=== PATIENT | male | born 1965 | race Caucasian/White ===

== ENCOUNTER 2016-09-29 14:14 | Emergency (ER) | payer MEDICARE, MEDICAID ==
[~2016-09-29] VITALS: Ht 180.3 cm; Wt 73.2 kg
[~2016-09-29 14:14] MED LIST: ALBU8.5H INH; ASCO500T43 PO; IBUP-1724 PO
[2016-09-29 14:18] VITALS: Ht 180.3 cm; Wt 73.2 kg
--- OUTSIDE RECORDS SUMMARY | 2016-09-29 14:19 | XMS REPORT | Continuity of Care Document ---
Author Author Barrett [facility] Organization [facility] Address Unknown Phone Unavailable Care Team Providers Care Fuel Storage Technician Name Role Phone Emma DENG MD Primary Care Physician [phone] Insurance Providers Payer Name Policy Number Subscriber Name Relationship Medicare [id number] Jamie Nagy 20 Self [place] [place] Plan [id number] Jamie Nagy 20 Self Problems Medical Problems Problem Onset Date Status Insect bite - wound Unknown Active Nausea Unknown Active Abdominal pain Unknown Active Diarrhea Unknown Active Vomiting Unknown Active Diarrhea Unknown Active Nausea Unknown Active Abdominal pain Unknown Active Nausea Unknown Active Adverse reaction to drug Unknown Active Lumbar radiculopathy Unknown Active Back muscle spasm Unknown Active Lumbar strain Unknown Active Spasm of cervical paraspinous muscle Unknown Active Spasm of cervical paraspinous muscle Unknown Active Multiple contusions Unknown Active Fall Unknown Active Medications Medication Dose Route Sig Days/Qty Instructions Order Date Discontinued Date Status Ibuprofen 800 Mg PO THREE TIMES A DAY 11/07/08 02/18/11 Discontinued Escitalopram Oxalate 1 Tab PO DAILY 11/07/08 12/27/10 Discontinued [Tylenol] 11/07/08 03/04/09 Discontinued Aspirin 1 Tab PO THREE TIMES A DAY 03/04/09 12/27/10 Discontinued Docusate Sodium 100 Mg PO DAILY 01/19/11 02/10/11 Discontinued Psyllium Seed PO DAILY 01/19/11 02/10/11 Discontinued Hydrocodone Bit/Acetaminophen 1 Tab PO NEEDED 01/19/11 02/10/11 Discontinued Al Hydroxide/Mg Hydroxide 02/10/11 03/27/11 Discontinued [Otc Allergy Med] 02/10/11 03/27/11 Discontinued Meloxicam 15 Mg PO DAILY 02/18/11 03/27/11 Discontinued Ibuprofen 800 Mg PO NEEDED 06/18/11 12/17/11 Discontinued Naproxen Sodium 220 Mg PO TWICE A DAY 07/09/11 12/17/11 Discontinued Paroxetine Hcl 10 Mg PO DAILY 07/29/11 12/17/11 Discontinued Ibuprofen 800 Mg PO NEEDED 03/23/12 12/19/12 Discontinued Hydrocodone Bit/Acetaminophen 1 Tab PO TID PRN 12/27/12 04/27/13 Discontinued Ibuprofen 800 Mg PO Q8H PRN 12/27/12 Active Paroxetine HCl 1 Tab PO DAILY 01/11/14 Active Clonazepam 0.5 Tab PO NEEDED 01/11/14 Active Social History Social History Problem Response Recorded Date/Time Smoking Status Former smoker 10/08/2013 9:08pm When did patient START smoking? PT UNABLE TO STATE WHAT YEAR OR HOW OLD HE WAS 01/28/2014 2:18pm Chewing Tobacco Status No 10/08/2013 9:08pm Hx Substance Use No 01/28/2014 2:18pm Hx Alcohol Use Yes 01/28/2014 2:18pm Has the pt used tobacco in the last 12 months Yes 01/11/2014 4:23pm Query Response Start Date Stop Date Smoking Status Current every day smoker Hospital Discharge Instructions No hospital discharge instructions. Plan of Care No plan of care. Functional Status Query Response Date Recorded Physical Hygiene Self January 28, 2014 2:18pm Disabilities None January 28, 2014 2:18pm Devices Used None January 28, 2014 2:18pm Dressing Self January 28, 2014 2:18pm Ambulation Self January 28, 2014 2:18pm Diet Self January 28, 2014 2:18pm Mental Status Alert Oriented January 28, 2014 2:18pm Disabilities None January 28, 2014 2:18pm Devices Used None January 28, 2014 2:18pm Physical Hygiene Self January 28, 2014 2:18pm Dressing Self January 28, 2014 2:18pm Ambulation Self January 28, 2014 2:18pm Diet Self January 28, 2014 2:18pm Allergies, Adverse Reactions, Alerts Allergen Type Severity Reaction Status Last Updated propoxyphene napsylate Allergy Unknown RASH,NECK SWELLING Active 01/13/14 Acetaminophen Adverse Reaction Unknown CANNOT TAKE DUE TO LIVER Active Tramadol Allergy Severe rash, upset stomach Active 01/28/14 Immunizations Name Given Type Hx Influenza Vaccination No Historical Hx Pneumococcal Vaccination No Historical Hx Tetanus, Diptheria, Pertussis SKIN INTACT Historical Hx Influenza Vaccination No Historical Hx Tetanus Diptheria Y THREE YRS AGO Historical Hx Tetanus, Diptheria, Pertussis SKIN INTACT Historical Hx Tetanus Toxoid Vaccination No Historical Vital Signs Acute Vital Signs Vital Response Date/Time Temperature (Fahrenheit) 96.4 deg F (96.8 - 99.1) Temperature (Calculated Celsius) 35.22647 degrees C (36.0 - 37.3) Pulse Rate (adult) 50 bpm (60 - 100) Respiratory Rate 20 breaths/min (10 - 20) O2 Sat by Pulse Oximetry 98 % (90 - 100) Blood Pressure 132/75 mm Hg Height 5 ft 7 in Weight 167 lb Body Mass Index 26.0 kg/m^2 Results Test Source Date Result Interp. Ref. Range Comments ANCA Pattern June 22, 2008 5:36pm Sent out - Acetaminophen Level December 19, 2012 5:45pm < 10 UG/ML L 10-30 TOXIC <4 HR POST INGESTION: >150 MG/L;TOXIC <12 HR POST INGESTION: >50 MG/L Activated Partial Thromboplast Time December 27, 2012 11:42am 37.5 SEC H 24- 36 Alanine Aminotransferase (ALT/SGPT) January 28, 2014 1:35pm 58 U/L N 21- 72 Albumin January 28, 2014 1:35pm 4.5 G/DL N 3.5-5.0 Albumin/Globulin Ratio January 28, 2014 1:35pm 1.6 RATIO N 1.1-2.2 Alcohol, Quantitative June 18, 2013 2:20am 121 MG/DL - Alkaline Phosphatase January 28, 2014 1:35pm 76 U/L N 38-126 Alpha Fetoprotein July 28, 2008 8:26am Sent out - Ammonia July 09, 2011 12:40am < 9 UMOL/L L 9-33 Amylase Level June 18, 2013 2:20am 120 U/L H 30-110 Anion Gap January 28, 2014 1:35pm 12 MEQ/L N 5-15 Aspartate Amino Transf (AST/SGOT) January 28, 2014 1:35pm 43 U/L N 17-59 B-Type Natriuretic Peptide January 19, 2011 3:30am 27 PG/ML N 15-100 BUN/Creatinine Ratio January 28, 2014 1:35pm 23 RATIO N 6-26 Band Neutrophils # March 04, 2009 2:37pm 0.0 T/MM3 - Band Neutrophils % March 04, 2009 2:37pm 0.0 % N 0-6 Basophils # (Auto) January 28, 2014 1:35pm 0.0 T/MM3 N 0-0.2 Basophils (%) (Auto) January 28, 2014 1:35pm 0.3 % N 0-2 Blood Urea Nitrogen January 28, 2014 1:35pm 18.0 MG/DL N 9-20 Calcium Level January 28, 2014 1:35pm 9.6 MG/DL N 8.4-10.2 Calculated Osmolality January 28, 2014 1:35pm 293 MOSM/KG H 261-280 Carbon Dioxide Level January 28, 2014 1:35pm 26 MEQ/L N 22-30 Chloride Level January 28, 2014 1:35pm 113 MEQ/L H 98-107 Conjugated Bilirubin February 19, 2012 1:05am 0.00 MG/DL N 0.00-0.30 Creatinine January 28, 2014 1:35pm 0.8 MG/DL N 0.8-1.5 D-Dimer February 18, 2011 4:35am < 150 NG/ML 0-230 <224 NG/ML= PRESUMPTIVE NEGATIVE FOR PE OR DVT>224 NG/ML=ADDITIONAL EVALUATION FOR PE OR DVT RECOMMENDED Eosinophils # (Auto) January 28, 2014 1:35pm 0.2 T/MM3 N 0-0.5 Eosinophils # (Manual) March 01, 2008 2:45pm 0.2 T/MM3 N 0-0.5 Eosinophils % (Manual) March 01, 2008 2:45pm 2.0 % N 0-4 Eosinophils (%) (Auto) January 28, 2014 1:35pm 3.4 % N 0-4 Free Thyroxine July 09, 2011 12:40am 1.23 NG/DL N 0.78-2.19 Gamma Glutamyl Transpeptidase December 12, 2008 3:35pm 107 U/L H 8-78 Globulin January 28, 2014 1:35pm 2.8 G/DL N 2.4-3.6 Glucose Level January 28, 2014 1:35pm 118 MG/DL H 75-110 Hematocrit January 28, 2014 1:35pm 44.6 % N 41-53 Hemoglobin January 28, 2014 1:35pm 15.1 GM/DL N 13.5-17.5 Hemoglobin A1c May 20, 2011 3:42pm 5.3 % L 6-7 <6.0 NON-DIABETIC RANGE6.0-7.0 ADA THERAPEUTIC RANGE >7.0 ACTION SUGGESTED Hepatitis A Antibody Total December 27, 2012 11:42am Negative - Hepatitis A Antibody Total performed at [facility], [address] [place] [address] [employer] Lieutenant Patrol Nikki Burton MD Hepatitis A IgM Antibody December 12, 2008 3:35pm Negative - Hepatitis B Core IgM Antibody December 12, 2008 3:35pm Negative - Hepatitis B Surface Antibody December 27, 2012 11:42am Negative - Patient is presumed to be not immune to infection with HBV.-- REFERENCE VALUE -- Unvaccinated: Negative Vaccinated: Positive Hepatitis B Surface Antibody, Quant December 27, 2012 11:42am <5.00 mIU/mL - -- REFERENCE VALUE --Unvaccinated: <5.0 Vaccinated: >=12.0 Test Performed by: [place] [address] Executive Candidate Developer: Kaiden Zhang III, M.D. Hepatitis B Surface Ab, Quant performed at [facility], [address] [place] [address] [employer] Lieutenant Patrol Leatha Burton MD Hepatitis B Surface Antigen December 12, 2008 3:35pm Negative - Hepatitis C Antibody December 12, 2008 3:35pm Positive - Hepatitis C Genotype December 27, 2012 11:42am 1a - Reference Range: Undetected.Testing was done using the Jenkins HCV Genotype II Assay. For research use only. Test performed by: [place], [place] Hepatitis C Viral RNA December 27, 2012 11:42am [id number] IU/mL - HEP C GENOTYPE [id number] Influenza Type A Antigen June 18, 2013 2:25am Negative - Negative for Flu A protein antigen. Assay sensitivity isbetween 65-83%. A negative result does not exclude influenza virus infection. "Influenza FA" may be ordered if clinical presentation warrants confirmatory testing. Influenza Type B Antigen June 18, 2013 2:25am Negative - Negative for Flu B protein antigen. Assay sensitivity isbetween 65-83%. A negative result does not exclude influenza virus infection. "Influenza FA" may be ordered if clinical presentation warrants confirmatory testing. Lipase June 18, 2013 2:20am 262 U/L N 23-300 Lymphocytes # (Auto) January 28, 2014 1:35pm 2.3 T/MM3 N 1-4.8 Lymphocytes # (Manual) March 04, 2009 2:37pm 2.8 T/MM3 N 1-4.8 Lymphocytes % (Manual) March 04, 2009 2:37pm 20.0 % L 23-45 Lymphocytes (%) (Auto) January 28, 2014 1:35pm 32.5 % N 23-45 Magnesium Level December 17, 2012 1:54am 2.3 MG/DL N 1.6-2.3 Mean Corpuscular Hemoglobin January 28, 2014 1:35pm 33.3 UUG N 26-34 Mean Corpuscular Hemoglobin Concent January 28, 2014 1:35pm 33.9 GM/DL N 31-37 Mean Corpuscular Volume January 28, 2014 1:35pm 98.2 UM3 N 80-100 Mean Platelet Volume January 28, 2014 1:35pm 10.0 UM3 N 9.4-12.4 Monocytes # (Auto) January 28, 2014 1:35pm 0.7 T/MM3 N 0-0.8 Monocytes # (Manual) March 04, 2009 2:37pm 0.4 T/MM3 N 0-0.8 Monocytes % (Manual) March 04, 2009 2:37pm 3.0 % N 0-9.0 Monocytes (%) (Auto) January 28, 2014 1:35pm 9.4 % H 0-9.0 Neutrophils # (Auto) January 28, 2014 1:35pm 3.8 T/MM3 N 1.8-7.7 Neutrophils # (Manual) March 04, 2009 2:37pm 10.8 T/MM3 H 1.8-7.7 Neutrophils % (Manual) March 04, 2009 2:37pm 77.0 % H 33-66 Neutrophils (%) (Auto) January 28, 2014 1:35pm 54.3 % N 33-66 Platelet Count January 28, 2014 1:35pm 238 T/MM3 N 130-400 Potassium Level January 28, 2014 1:35pm 3.9 MEQ/L N 3.6-5 Prothromb Time International Ratio December 27, 2012 11:42am 1.05 N 0.86- 1.10 THERAPUTIC RANGE=2.00-3.00 FOR ANTI-THROMBOSIS THERAPUTIC RANGE=2.50- 3.50 FOR IMPLANTED VALVE RDW Standard Deviation January 28, 2014 1:35pm 50.3 FL H 36.9-50.2 Red Blood Count January 28, 2014 1:35pm 4.54 M/MM3 N 4.50-5.90 Salicylates Level December 19, 2012 5:45pm < 1.0 MG/DL L 2-20 Sodium Level January 28, 2014 1:35pm 151 MEQ/L H 134-144 Tests Not Done September 26, 2008 6:14pm Not done - Has specimen been collected/obtained? Y Thyroid Stimulating Hormone (TSH) December 19, 2012 5:45pm 0.22 MIU/L L 0.47 -4.68 Total Bilirubin January 28, 2014 1:35pm 0.50 MG/DL N 0.20-1.30 Total Protein January 28, 2014 1:35pm 7.3 G/DL N 6.3-8.2 Troponin I February 19, 2012 1:05am < 0.012 ng/ml 0-0.12 Unconjugated Bilirubin February 19, 2012 1:05am 0.10 MG/DL N 0.00-1.10 Urine Bacteria March 04, 2009 2:50pm Trace - Has specimen been collected/obtained? Y Urine Bilirubin June 18, 2013 2:55am Negative - Has specimen been collected/obtained? Y Urine Blood June 18, 2013 2:55am Negative - Has specimen been collected/obtained? Y Urine Collection Type June 18, 2013 2:55am Cleancatch-midstream - Has specimen been collected/obtained? Y Urine Color June 18, 2013 2:55am Yellow - Has specimen been collected/obtained? Y Urine Drug Screen Confirmation June 18, 2013 3:31am Sent out - Urine Glucose (UA) June 18, 2013 2:55am Negative - Has specimen been collected/obtained? Y Urine Ketones June 18, 2013 2:55am Negative - Has specimen been collected/obtained? Y Urine Leukocyte Esterase June 18, 2013 2:55am Negative - Has specimen been collected/obtained? Y Urine Microalbumin February 12, 2009 11:15am < 6.0 MG/L 0-17 Urine Mucus March 04, 2009 2:50pm Present - Has specimen been collected/obtained? Y Urine Nitrite June 18, 2013 2:55am Negative - Has specimen been collected/obtained? Y Urine Protein June 18, 2013 2:55am Negative - Has specimen been collected/obtained? Y Urine RBC March 04, 2009 2:50pm None seen /HPF - Has specimen been collected/obtained? Y Urine Specific Finger June 18, 2013 2:55am 1.010 L - Has specimen been collected/obtained? Y Urine Turbidity June 18, 2013 2:55am Clear - Has specimen been collected/obtained? Y Urine Urobilinogen June 18, 2013 2:55am 0.2 EU/DL - Has specimen been collected/obtained? Y Urine WBC March 04, 2009 2:50pm 0-1 /HPF - Has specimen been collected/obtained? Y Urine pH June 18, 2013 2:55am 5.5 - Has specimen been collected/ obtained? Y White Blood Count January 28, 2014 1:35pm 7.0 T/MM3 N 4.5-11.0 Chemistry Specimen Hemolysis January 28, 2014 1:35pm < 15 0-25 0-25: No Hemolysis.26-70: Slight Hemolysis - can falsely elevate K and Urine Protein. 71-285: Moderate Hemolysis - can falsely elevate K, Troponin I, CA 19-9, PTH, CSF GLucose, and Urine Protein, and can falsely decrease Phenytoin. 286-999: Gross Hemolysis - can falsely elevate K, Troponin I, CA 19-9, PTH, CSF Glucose, and Urine Protine, and can falsely decrease Phenytoin. Recommend specimen recollection. Hepatitis C Virus Subtype December 12, 2008 3:35pm Sent out - Urinalysis Comment June 18, 2013 2:55am Microscopic not ind. - Has specimen been collected/obtained? Y Glucometer April 27, 2013 3:20pm 126 mg/dL H 75-110 Lab Scanned Report January 28, 2014 5:18pm REFERENCE LAB [id number] - Hepatitis C RNA (PCR) Method March 29, 2008 5:37pm Sent out - Hepatitis C RNA Ultraquantitative February 23, 2009 4:20pm Sent out - Anti-Nuclear Antibody (LAB) December 12, 2008 3:35pm Sent out - Turbidity January 28, 2014 1:35pm < 20 0-20 Glomerular Filtration Rate Calc January 28, 2014 1:35pm 104 - Immature Granulocyte # (Auto) January 28, 2014 1:35pm 0.01 T/MM3 N 0.00- 0.03 Immature Granulocyte % (Auto) January 28, 2014 1:35pm 0.1 % N 0.0-0.5 Hepatitis C RNA (PCR) log10 December 27, 2012 11:42am 6.6 - This test is for monitoring of HCV positive patients only andshould not be used as a screening test for HCV infection. Hepatitis C RNA performed at [facility], [facility] [address] [employer] Lieutenant Patrol Nikki Burton MD Icterus Index January 28, 2014 1:35pm < 2 0-7 [id number]-[id number]-Type Natriuretic Peptide February 19, 2012 1:05am 67 PG/ML N 0 -175 Rule in cut points: <50 years old=450; 50-75 years old=900; >75 years old=1800; When utilizing ProBNP rule-in cut points, adjustment for impaired renal function is typically not required. Urine Microscopic Not Indicated July 29, 2011 5:00am Not indicated - Has specimen been collected/obtained? Y Blood Culture Blood March 27, 2011 9:54am NO GROWTH AFTER 5 DAYS Gram Stain Leg-Right Lower January 27, 2008 9:54pm Helicobacter pylori Rapid Urease Gastric Biopsy November 07, 2008 11:15am Name: JAMIE NAGY Unit #: [id number] : [id number] Sex: M Loc / Svc: ED DOS: 01/28/14 Signed Report #: [id number] DIAGNOSTIC IMAGING REPORT TYPE OF EXAM: SHOULDER RIGHT 2 VIEW Dictated By: ANNETTE GALE MD INDICATION: ITS.REASON: fall, pain SHOULDER RIGHT 2 VIEW: IMPRESSION: No fracture or dislocation is identified. No focal osseous lesions are demonstrated. No bony or soft tissue abnormalities are seen. No erosions or inflammatory lesions are seen. . Procedures Procedure Status Date Provider(s) Cervical epidural steroid injection completed 01/26/14 ANN BURNETT MD Encounters Encounter Location Date/Time Departed Emergency Room [facility] 01/28/14 1:49pm Departed Emergency Room [facility] 01/13/14 10:20pm Recent Diagnosis
--- OUTSIDE RECORDS SUMMARY | 2016-09-29 14:20 | XMS REPORT | Continuity of Care Document ---
Author Author [facility] Organization [facility] Address Unknown Phone Unavailable Support Name Relationship Address Phone ANN BURNETT MD Caregiver [address] [place] [address] SKIP GARCIA MD Caregiver [address] [place] [address] [employer] Next Of Kin Unknown [phone] Insurance Providers Payer Name Policy Number Subscriber Name Relationship Medicare [id number] Jamie Nagy 20 Self [employer] [id number] Jamie Nagy 20 Self Problems Medical Problems Problem Onset Date Status Insect bite - wound Unknown Active Nausea Unknown Active Abdominal pain Unknown Active Diarrhea Unknown Active Vomiting Unknown Active Diarrhea Unknown Active Nausea Unknown Active Abdominal pain Unknown Active Nausea Unknown Active Adverse reaction to drug Unknown Active Lumbar radiculopathy Unknown Active Back muscle spasm Unknown Active Lumbar strain Unknown Active Medications Medication Dose Route Sig [...] 800 Mg PO Q8H PRN 12/27/12 Active Ondansetron Hcl 4 Mg PO NEEDED 06/18/13 Active Paroxetine HCl 1 Tab PO DAILY 01/11/14 Active Clonazepam 0.5 Tab PO NEEDED 01/11/14 Active Gabapentin 1 Cap PO TWICE A DAY 01/11/14 Active Social History Social History Problem Response Recorded Date/Time Smoking Status Former smoker 10/08/2013 9:08pm When did patient START smoking? AGE 26 01/11/2014 4:23pm When did patient STOP smoking? 2 MONTHS AGO 01/11/2014 4:23pm Chewing Tobacco Status No 10/08/2013 9:08pm Hx Substance Use No 01/11/2014 4:23pm Hx Alcohol Use Yes 01/11/2014 4:23pm Has the pt used tobacco in the last 12 months Yes 01/11/2014 4:23pm Query Response Start Date Stop Date Smoking Status Current every day smoker Hospital Discharge Instructions No hospital discharge instructions. Plan of Care No plan of care. Functional Status No functional status results. Allergies, Adverse Reactions, Alerts Allergen Type Severity Reaction Status Last Updated propoxyphene napsylate Allergy Unknown RASH,NECK SWELLING Active 01/11/14 Acetaminophen Adverse Reaction Unknown CANNOT TAKE DUE TO LIVER Active Immunizations Name Given Type Hx Influenza Vaccination No Historical Hx Pneumococcal Vaccination No Historical Hx Tetanus, Diptheria, Pertussis N/A SKIN INTACT Historical Hx Influenza Vaccination No Historical Hx Tetanus Diptheria Y THREE YRS AGO Historical Hx Tetanus, Diptheria, Pertussis N/A SKIN INTACT Historical Hx Tetanus Toxoid Vaccination No Historical Vital Signs Acute Vital Signs Vital Response Date/Time Temperature (Fahrenheit) 97.7 deg F (96.8 - 99.1) Temperature (Calculated Celsius) 36.95537 degrees C (36.0 - 37.3) Temperature Source Temporal Pulse Rate (adult) 63 bpm (60 - 100) Respiratory Rate 20 breaths/min (10 - 20) O2 Sat by Pulse Oximetry 96 % (90 - 100) Oxygen Delivery Method Room Air Blood Pressure 148/62 mm Hg Blood Pressure Source Automatic Cuff Height 5 ft 11 in Weight 160 lb Body Mass Index 22.0 kg/m^2 Results Test Source Date Result Interp. Ref. Range Comments ANCA Pattern June 22, 2008 5:36pm Sent out - Acetaminophen Level December 19, 2012 5:45pm < 10 UG/ML L 10-30 TOXIC <4 HR POST INGESTION: >150 MG/L;TOXIC <12 HR POST INGESTION: >50 MG/L Activated Partial Thromboplast Time December 27, 2012 11:42am 37.5 SEC H 24- 36 Alanine Aminotransferase (ALT/SGPT) June 18, 2013 2:20am 63 U/L N 21- 72 Albumin June 18, 2013 2:20am 4.9 G/DL N 3.5-5.0 Albumin/Globulin Ratio June 18, 2013 2:20am 1.3 RATIO N 1.1-2.2 Alcohol, Quantitative June 18, 2013 2:20am 121 MG/DL - Alkaline Phosphatase June 18, 2013 2:20am 73 U/L N 38-126 Alpha Fetoprotein July 28, 2008 8:26am Sent out - Ammonia July 09, 2011 12:40am < 9 UMOL/L L 9-33 Amylase Level June 18, 2013 2:20am 120 U/L H 30-110 Anion Gap June 18, 2013 2:20am 18 MEQ/L H 5-15 Aspartate Amino Transf (AST/SGOT) June 18, 2013 2:20am 55 U/L N 17- 59 B-Type Natriuretic Peptide January 19, 2011 3:30am 27 PG/ML N 15-100 BUN/Creatinine Ratio June 18, 2013 2:20am 10 RATIO N 6-26 Band Neutrophils # March 04, 2009 2:37pm 0.0 T/MM3 - Band Neutrophils % March 04, 2009 2:37pm 0.0 % N 0-6 Basophils # (Auto) June 18, 2013 2:20am 0.0 T/MM3 N 0-0.2 Basophils (%) (Auto) June 18, 2013 2:20am 0.4 % N 0-2 Blood Urea Nitrogen June 18, 2013 2:20am 9.0 MG/DL N 9-20 Calcium Level June 18, 2013 2:20am 10.1 MG/DL N 8.4-10.2 Calculated Osmolality June 18, 2013 2:20am 291 MOSM/KG H 261-280 Carbon Dioxide Level June 18, 2013 2:20am 25 MEQ/L N 22-30 Chloride Level June 18, 2013 2:20am 109 MEQ/L H 98-107 Conjugated Bilirubin February 19, 2012 1:05am 0.00 MG/DL N 0.00-0.30 Creatinine June 18, 2013 2:20am 0.9 MG/DL N 0.8-1.5 D-Dimer February 18, 2011 4:35am < 150 NG/ML 0-230 <224 NG/ML= PRESUMPTIVE NEGATIVE FOR PE OR DVT>224 NG/ML=ADDITIONAL EVALUATION FOR PE OR DVT RECOMMENDED Eosinophils # (Auto) June 18, 2013 2:20am 0.2 T/MM3 N 0-0.5 Eosinophils # (Manual) March 01, 2008 2:45pm 0.2 T/MM3 N 0-0.5 Eosinophils % (Manual) March 01, 2008 2:45pm 2.0 % N 0-4 Eosinophils (%) (Auto) June 18, 2013 2:20am 3.4 % N 0-4 Free Thyroxine July 09, 2011 12:40am 1.23 NG/DL N 0.78-2.19 Gamma Glutamyl Transpeptidase December 12, 2008 3:35pm 107 U/L H 8-78 Globulin June 18, 2013 2:20am 3.7 G/DL H 2.4-3.6 Glucose Level June 18, 2013 2:20am 98 MG/DL N 75-110 Hematocrit June 18, 2013 2:20am 43.1 % N 41-53 Hemoglobin June 18, 2013 2:20am 14.9 GM/DL N 13.5-17.5 Hemoglobin A1c May 20, 2011 3:42pm 5.3 % L 6-7 <6.0 NON-DIABETIC RANGE6.0-7.0 ADA THERAPEUTIC RANGE >7.0 ACTION SUGGESTED Hepatitis A Antibody Total December 27, 2012 11:42am Negative - Hepatitis A Antibody Total performed at [facility], [address] [place] [address] Director Of Instrumental Music Nikki Burton MD Hepatitis A IgM Antibody [...] --Unvaccinated: <5.0 Vaccinated: >=12.0 Test Performed by: [facility] [address] Territory Development Manager: Kaiden Zhang III, M.D. Hepatitis B Surface Ab, Quant performed at [facility], [address] [place] [address] Director Of Instrumental Music Leatha Burton MD Hepatitis B Surface Antigen December 12, 2008 3:35pm Negative - Hepatitis C Antibody December 12, 2008 3:35pm Positive - Hepatitis C Genotype December 27, 2012 11:42am 1a - Reference Range: Undetected.Testing was done using the Jenkins HCV Genotype II Assay. For research use only. Test performed by: [place], [place] Hepatitis C Viral RNA December 27, 2012 11:42am [id number] IU/mL - HEP C GENOTYPE [id number] Influenza [...] 262 U/L N 23-300 Lymphocytes # (Auto) June 18, 2013 2:20am 3.1 T/MM3 N 1-4.8 Lymphocytes # (Manual) March 04, 2009 2:37pm 2.8 T/MM3 N 1-4.8 Lymphocytes % (Manual) March 04, 2009 2:37pm 20.0 % L 23-45 Lymphocytes (%) (Auto) June 18, 2013 2:20am 46.6 % H 23-45 Magnesium Level December 17, 2012 1:54am 2.3 MG/DL N 1.6-2.3 Mean Corpuscular Hemoglobin June 18, 2013 2:20am 32.6 UUG N 26-34 Mean Corpuscular Hemoglobin Concent June 18, 2013 2:20am 34.6 GM/DL N 31-37 Mean Corpuscular Volume June 18, 2013 2:20am 94.3 UM3 N 80-100 Mean Platelet Volume June 18, 2013 2:20am 8.4 UM3 L 9.4-12.4 Monocytes # (Auto) June 18, 2013 2:20am 0.5 T/MM3 N 0-0.8 Monocytes # (Manual) March 04, 2009 2:37pm 0.4 T/MM3 N 0-0.8 Monocytes % (Manual) March 04, 2009 2:37pm 3.0 % N 0-9.0 Monocytes (%) (Auto) June 18, 2013 2:20am 8.1 % N 0-9.0 Neutrophils # (Auto) June 18, 2013 2:20am 2.8 T/MM3 N 1.8-7.7 Neutrophils # (Manual) March 04, 2009 2:37pm 10.8 T/MM3 H 1.8-7.7 Neutrophils % (Manual) March 04, 2009 2:37pm 77.0 % H 33-66 Neutrophils (%) (Auto) June 18, 2013 2:20am 41.4 % N 33-66 Platelet Count June 18, 2013 2:20am 415 T/MM3 H 130-400 Potassium Level June 18, 2013 2:20am 3.8 MEQ/L N 3.6-5 Prothromb Time International Ratio December 27, 2012 11:42am 1.05 N 0.86- 1.10 THERAPUTIC RANGE=2.00-3.00 FOR ANTI-THROMBOSIS THERAPUTIC RANGE=2.50- 3.50 FOR IMPLANTED VALVE RDW Standard Deviation June 18, 2013 2:20am 47.3 FL N 36.9-50.2 Red Blood Count June 18, 2013 2:20am 4.57 M/MM3 N 4.50-5.90 Salicylates Level December 19, 2012 5:45pm < 1.0 MG/DL L 2-20 Sodium Level June 18, 2013 2:20am 152 MEQ/L H 134-144 Tests Not Done September 26, 2008 6:14pm Not done - Has specimen been collected/obtained? Y Thyroid Stimulating Hormone (TSH) December 19, 2012 5:45pm 0.22 MIU/L L 0.47 -4.68 Total Bilirubin June 18, 2013 2:20am 0.50 MG/DL N 0.20-1.30 Total Protein June 18, 2013 2:20am 8.6 G/DL H 6.3-8.2 Troponin I February 19, 2012 1:05am < 0.012 ng/ml 0-0.12 Unconjugated Bilirubin February 19, 2012 1:05am 0.10 MG/DL N 0.00-1.10 Urine Amphetamines Screen June 18, 2013 2:55am Negative NG/ML - Urine Bacteria March 04, 2009 2:50pm Trace - Has specimen been collected/obtained? Y Urine Barbiturates Screen June 18, 2013 2:55am Negative NG/ML - Urine Benzodiazepines Screen June 18, 2013 2:55am Positive NG/ML - Urine Bilirubin June 18, 2013 2:55am Negative - Has specimen been collected/obtained? Y Urine Blood June 18, 2013 2:55am Negative - Has specimen been collected/obtained? Y Urine Cocaine Screen June 18, 2013 2:55am Negative NG/ML - Urine Collection Type June 18, 2013 2:55am [...] - Has specimen been collected/obtained? Y Urine Methamphetamines Screen June 18, 2013 2:55am Negative NG/ML - Urine Microalbumin February 12, 2009 11:15am < 6.0 MG/L 0-17 Urine Mucus March 04, 2009 2:50pm Present - Has specimen been collected/obtained? Y Urine Nitrite June 18, 2013 2:55am Negative - Has specimen been collected/obtained? Y Urine Opiates Screen June 18, 2013 2:55am Negative NG/ML - Urine Phencyclidine Screen June 18, 2013 2:55am Negative NG/ML - Urine Protein June 18, 2013 2:55am Negative - Has specimen been collected/obtained? Y Urine RBC March 04, 2009 2:50pm None seen /HPF - Has specimen been collected/obtained? Y Urine Specific [place] June 18, 2013 2:55am 1.010 L - Has specimen been collected/obtained? Y Urine Tricyclic Antidepressants June 18, 2013 2:55am Negative NG/ML - Urine Turbidity June 18, 2013 2:55am Clear - Has specimen been collected/obtained? Y Urine Urobilinogen June 18, 2013 2:55am 0.2 EU/DL - Has specimen been collected/obtained? Y Urine WBC March 04, 2009 2:50pm 0-1 /HPF - Has specimen been collected/obtained? Y Urine pH June 18, 2013 2:55am 5.5 - Has specimen been collected/ obtained? Y White Blood Count June 18, 2013 2:20am 6.7 T/MM3 N 4.5-11.0 Hepatitis C Virus Subtype December 12, 2008 3:35pm Sent out - Urinalysis Comment June 18, 2013 2:55am Microscopic not ind. - Has specimen been collected/obtained? Y Glucometer April 27, 2013 3:20pm 126 mg/dL H 75-110 Lab Scanned Report June 24, 2013 3:50pm REFER[facility] LAB [id number] - Hepatitis C RNA (PCR) Method March 29, 2008 5:37pm Sent out - Hepatitis C RNA Ultraquantitative February 23, 2009 4:20pm Sent out - Urine Methadone Screen June 18, 2013 2:55am Negative NG/ML - Urine Cannabinoids Screen June 18, 2013 2:55am Positive NG/ML - Anti-Nuclear Antibody (LAB) December 12, 2008 3:35pm Sent out - Glomerular Filtration Rate Calc June 18, 2013 2:20am 91 - Immature Granulocyte # (Auto) June 18, 2013 2:20am 0.01 T/MM3 N 0.00- 0.03 Immature Granulocyte % (Auto) June 18, 2013 2:20am 0.1 % N 0.0-0.5 Hepatitis C RNA (PCR) log10 December 27, 2012 11:42am 6.6 - This test is for monitoring of HCV positive patients only andshould not be used as a screening test for HCV infection. Hepatitis C RNA performed at [facility], [address] [place] [id number] Director Of Instrumental Music Nikki Burton MD Urine Acetaminophen Screen June 18, 2013 2:55am Negative NG/ML - DY-Ezz-M-Type Natriuretic Peptide February 19, 2012 1:05am 67 [...] 2011 9:54am NO GROWTH AFTER 5 DAYS Helicobacter pylori Rapid Urease Gastric Biopsy November 07, 2008 11:15am Gram Stain Leg-Right Lower January 27, 2008 9:54pm Procedures Procedure Status Date Provider(s) Cervical epidural steroid injection completed 01/12/14 ANN BURNETT MD
--- OUTSIDE RECORDS SUMMARY | 2016-09-29 14:21 | XMS REPORT | Continuity of Care Document ---
Author Author [facility] Organization [facility] Address Unknown Phone Unavailable Care Team Providers Care Assistant Construction Superintendent Name Role Phone ADAL LOBO MD Primary Care Physician [phone] Insurance Providers Payer Name Policy Number Subscriber Name Relationship Medicare [id number] Renetta Nagy 20 Self [facility] Plan [id number] Renetta Nagy 20 Self Problems Medical Problems Problem [...] Multiple contusions Unknown Active Fall Unknown Active Multiple contusions Unknown Active Chronic abdominal pain Unknown Active Fall Unknown Active Chronic abdominal pain Unknown Active Malingering Unknown Active Malingering Unknown Active Spasm of cervical paraspinous muscle Unknown Active Medications Medication Dose Route Sig [...] Tab PO TID PRN 12/27/12 04/27/13 Discontinued [baclofen] 03/23/14 Active Baclofen 1 Tab PO THREE TIMES A DAY PRN PRN ORDERS 30 Qty 04/24/14 Active Social History Social History Problem Response Recorded Date/Time Smoking Status Former smoker 10/08/2013 9:08pm Chewing Tobacco Status No 10/08/2013 9:08pm Hx Substance Use No 04/24/2014 3:15am Hx Alcohol Use Y social 04/24/2014 3:15am Has the pt used tobacco in the last 12 months Yes 01/11/2014 4:23pm Query Response Start Date Stop Date Smoking Status Former smoker Hospital Discharge Instructions No hospital discharge instructions. Plan of Care No plan of care. Functional Status Query Response Date Recorded Physical Hygiene Self April 24, 2014 3:15am Physical Hygiene Self April 24, 2014 3:15am Allergies, Adverse Reactions, Alerts Allergen Type Severity Reaction Status Last Updated propoxyphene napsylate Allergy Unknown RASH,NECK SWELLING Active 04/24/14 Acetaminophen Adverse Reaction Unknown CANNOT TAKE DUE TO LIVER Active Tramadol Allergy Severe rash, upset stomach Active 04/24/14 Immunizations Name Given Type Hx Influenza Vaccination No Historical Hx Pneumococcal Vaccination No Historical Hx Tetanus, Diptheria, Pertussis SKIN INTACT Historical Hx Influenza Vaccination No Historical Hx Tetanus Diptheria Y THREE YRS AGO Historical Hx Tetanus, Diptheria, Pertussis SKIN INTACT Historical Hx Tetanus Toxoid Vaccination No Historical Vital Signs Acute Vital Signs Vital Response Date/Time Temperature (Fahrenheit) 98.0 deg F (96.8 - 99.1) Temperature (Calculated Celsius) 36.99254 degrees C (36.0 - 37.3) Pulse Rate (adult) 78 bpm (60 - 100) Respiratory Rate 18 breaths/min (10 - 20) O2 Sat by Pulse Oximetry 96 % (90 - 100) Blood Pressure 148/90 mm Hg Results Test Source Date Result Interp. Ref. Range Comments ANCA Pattern June 22, 2008 5:36pm Sent out - Acetaminophen Level December 19, 2012 5:45pm < 10 UG/ML L 10-30 TOXIC <4 HR POST INGESTION: >150 MG/L;TOXIC <12 HR POST INGESTION: >50 MG/L Activated Partial Thromboplast Time March 22, 2014 11:43pm 34.9 SEC N 24-36 Alanine Aminotransferase (ALT/SGPT) March 22, 2014 11:43pm 53 U/L N 21 -72 Albumin March 22, 2014 11:43pm 4.3 G/DL N 3.5-5.0 Albumin/Globulin Ratio March 22, 2014 11:43pm 1.5 RATIO N 1.1-2.2 Alcohol, Quantitative March 22, 2014 11:43pm <10 MG/DL - Alkaline Phosphatase March 22, 2014 11:43pm 74 U/L N 38-126 Alpha Fetoprotein July 28, 2008 8:26am Sent out - Ammonia July 09, 2011 12:40am < 9 UMOL/L L 9-33 Amylase Level March 22, 2014 11:43pm 75 U/L N 30-110 Anion Gap March 22, 2014 11:43pm 12 MEQ/L N 5-15 Aspartate Amino Transf (AST/SGOT) March 22, 2014 11:43pm 33 U/L N 17- 59 B-Type Natriuretic Peptide January 19, 2011 3:30am 27 PG/ML N 15-100 BUN/Creatinine Ratio March 22, 2014 11:43pm 28 RATIO H 6-26 Band Neutrophils # March 04, 2009 2:37pm 0.0 T/MM3 - Band Neutrophils % March 04, 2009 2:37pm 0.0 % N 0-6 Basophils # (Auto) March 22, 2014 11:43pm 0.1 T/MM3 N 0-0.2 Basophils (%) (Auto) March 22, 2014 11:43pm 0.8 % N 0-2 Blood Urea Nitrogen March 22, 2014 11:43pm 22.0 MG/DL H 9-20 Calcium Level March 22, 2014 11:43pm 9.7 MG/DL N 8.4-10.2 Calculated Osmolality March 22, 2014 11:43pm 275 MOSM/KG N 261-280 Carbon Dioxide Level March 22, 2014 11:43pm 24 MEQ/L N 22-30 Chloride Level March 22, 2014 11:43pm 105 MEQ/L N 98-107 Conjugated Bilirubin February 19, 2012 1:05am 0.00 MG/DL N 0.00-0.30 Creatinine March 22, 2014 11:43pm 0.8 MG/DL N 0.8-1.5 D-Dimer February 18, 2011 4:35am < 150 NG/ML 0-230 <224 NG/ML= PRESUMPTIVE NEGATIVE FOR PE OR DVT>224 NG/ML=ADDITIONAL EVALUATION FOR PE OR DVT RECOMMENDED Eosinophils # (Auto) March 22, 2014 11:43pm 0.4 T/MM3 N 0-0.5 Eosinophils # (Manual) March 01, 2008 2:45pm 0.2 T/MM3 N 0-0.5 Eosinophils % (Manual) March 01, 2008 2:45pm 2.0 % N 0-4 Eosinophils (%) (Auto) March 22, 2014 11:43pm 4.4 % H 0-4 Free Thyroxine July 09, 2011 12:40am 1.23 NG/DL N 0.78-2.19 Gamma Glutamyl Transpeptidase December 12, 2008 3:35pm 107 U/L H 8-78 Globulin March 22, 2014 11:43pm 2.9 G/DL N 2.4-3.6 Glucose Level March 22, 2014 11:43pm 123 MG/DL H 75-110 Hematocrit March 22, 2014 11:43pm 40.9 % L 41-53 Hemoglobin March 22, 2014 11:43pm 14.7 GM/DL N 13.5-17.5 Hemoglobin A1c May 20, 2011 3:42pm 5.3 % L 6-7 <6.0 NON-DIABETIC RANGE6.0-7.0 ADA THERAPEUTIC RANGE >7.0 ACTION SUGGESTED Hepatitis A Antibody Total December 27, 2012 11:42am Negative - Hepatitis A Antibody Total performed at [facility], [address] [place] [address] Aquatic Physiotherapist Nikki Burton MD Hepatitis A IgM Antibody [...] --Unvaccinated: <5.0 Vaccinated: >=12.0 Test Performed by: [facility] [place] [address] Negotiations Director: Kaiden Zhang III, M.D. Hepatitis B Surface Ab, [place] [address] Aquatic Physiotherapist Leatha Burton MD Hepatitis B Surface Antigen December 12, 2008 3:35pm Negative - Hepatitis C Antibody December 12, 2008 3:35pm Positive - Hepatitis C Genotype April 26, 2014 8:21am 1a - Reference Range: Undetected ADDITIONAL INFORMATION This test was performed using the Jenkins RealTime HCV Genotype II assay ([employer] [place], [place]). Test Performed by: [facility] [place] [address] Negotiations Director: Wyatt Christie M.D. Hepatitis [place] [address] Aquatic Physiotherapist Leatha Burton MD Hepatitis C Viral RNA December 27, 2012 11:42am [id number] IU/mL - HEP C GENOTYPE [id number] Influenza [...] if clinical presentation warrants confirmatory testing. Lipase March 22, 2014 11:43pm 135 U/L N 23-300 Lymphocytes # (Auto) March 22, 2014 11:43pm 3.1 T/MM3 N 1-4.8 Lymphocytes # (Manual) March 04, 2009 2:37pm 2.8 T/MM3 N 1-4.8 Lymphocytes % (Manual) March 04, 2009 2:37pm 20.0 % L 23-45 Lymphocytes (%) (Auto) March 22, 2014 11:43pm 34.0 % N 23-45 Magnesium Level December 17, 2012 1:54am 2.3 MG/DL N 1.6-2.3 Mean Corpuscular Hemoglobin March 22, 2014 11:43pm 33.4 UUG N 26-34 Mean Corpuscular Hemoglobin Concent March 22, 2014 11:43pm 35.9 GM/DL N 31-37 Mean Corpuscular Volume March 22, 2014 11:43pm 93.0 UM3 N 80-100 Mean Platelet Volume March 22, 2014 11:43pm 8.9 UM3 L 9.4-12.4 Monocytes # (Auto) March 22, 2014 11:43pm 0.7 T/MM3 N 0-0.8 Monocytes # (Manual) March 04, 2009 2:37pm 0.4 T/MM3 N 0-0.8 Monocytes % (Manual) March 04, 2009 2:37pm 3.0 % N 0-9.0 Monocytes (%) (Auto) March 22, 2014 11:43pm 8.2 % N 0-9.0 Neutrophils # (Auto) March 22, 2014 11:43pm 4.7 T/MM3 N 1.8-7.7 Neutrophils # (Manual) March 04, 2009 2:37pm 10.8 T/MM3 H 1.8-7.7 Neutrophils % (Manual) March 04, 2009 2:37pm 77.0 % H 33-66 Neutrophils (%) (Auto) March 22, 2014 11:43pm 52.4 % N 33-66 Platelet Count March 22, 2014 11:43pm 312 T/MM3 N 130-400 Potassium Level March 22, 2014 11:43pm 3.9 MEQ/L N 3.6-5 Prothromb Time International Ratio March 22, 2014 11:43pm 1.11 H 0.81- 1.09 THERAPUTIC RANGE=2.00-3.00 FOR ANTI-THROMBOSIS THERAPUTIC RANGE=2.50- 3.50 FOR IMPLANTED VALVE RDW Standard Deviation March 22, 2014 11:43pm 43.6 FL N 36.9-50.2 Red Blood Count March 22, 2014 11:43pm 4.40 M/MM3 L 4.50-5.90 Salicylates Level December 19, 2012 5:45pm < 1.0 MG/DL L 2-20 Sodium Level March 22, 2014 11:43pm 141 MEQ/L N 134-144 Tests Not Done September 26, 2008 6:14pm Not done - Has specimen been collected/obtained? Y Thyroid Stimulating Hormone (TSH) December 19, 2012 5:45pm 0.22 MIU/L L 0.47 -4.68 Total Bilirubin March 22, 2014 11:43pm 0.50 MG/DL N 0.20-1.30 Total Protein March 22, 2014 11:43pm 7.2 G/DL N 6.3-8.2 Troponin I February 19, 2012 1:05am < 0.012 ng/ml 0-0.12 Unconjugated Bilirubin February 19, 2012 1:05am 0.10 MG/DL N 0.00-1.10 Urine Bacteria March 04, 2009 2:50pm Trace - Has specimen been collected/obtained? Y Urine Bilirubin March 22, 2014 11:43pm Negative - Has specimen been collected/obtained? Y Urine Blood March 22, 2014 11:43pm Negative - Has specimen been collected/obtained? Y Urine Collection Type March 22, 2014 11:43pm Cleancatch-midstream - Has specimen been collected/obtained? Y Urine Color March 22, 2014 11:43pm Yellow - Has specimen been collected/obtained? Y Urine Glucose (UA) March 22, 2014 11:43pm Negative - Has specimen been collected/obtained? Y Urine Ketones March 22, 2014 11:43pm Negative - Has specimen been collected/obtained? Y Urine Leukocyte Esterase March 22, 2014 11:43pm Negative - Has specimen been collected/obtained? Y Urine Microalbumin February 12, 2009 11:15am < 6.0 MG/L 0-17 Urine Mucus March 04, 2009 2:50pm Present - Has specimen been collected/obtained? Y Urine Nitrite March 22, 2014 11:43pm Negative - Has specimen been collected/obtained? Y Urine Protein March 22, 2014 11:43pm Negative - Has specimen been collected/obtained? Y Urine RBC March 04, 2009 2:50pm None seen /HPF - Has specimen been collected/obtained? Y Urine Specific [place] March 22, 2014 11:43pm 1.015 - Has specimen been collected/obtained? Y Urine Turbidity March 22, 2014 11:43pm Clear - Has specimen been collected/obtained? Y Urine Urobilinogen March 22, 2014 11:43pm 0.2 EU/DL - Has specimen been collected/obtained? Y Urine WBC March 04, 2009 2:50pm 0-1 /HPF - Has specimen been collected/obtained? Y Urine pH March 22, 2014 11:43pm 6.0 - Has specimen been collected/ obtained? Y White Blood Count March 22, 2014 11:43pm 9.0 T/MM3 N 4.5-11.0 Chemistry Specimen Hemolysis March 22, 2014 11:43pm < 15 0-25 0-25 : No Hemolysis.26-70: Slight Hemolysis - can falsely [...] 2008 3:35pm Sent out - Urinalysis Comment March 22, 2014 11:43pm Microscopic not ind. - Has specimen been collected/obtained? Y Glucometer April 27, 2013 3:20pm 126 mg/dL H 75-110 Lab Scanned Report April 26, 2014 10:29am LAB TEST FORM REQUEST [id number] - Hepatitis C RNA (PCR) Method March 29, 2008 5:37pm Sent out - Hepatitis C RNA Ultraquantitative February 23, 2009 4:20pm Sent out - Anti-Nuclear Antibody (LAB) December 12, 2008 3:35pm Sent out - Turbidity March 22, 2014 11:43pm < 20 0-20 Glomerular Filtration Rate Calc March 22, 2014 11:43pm 104 - Immature Granulocyte # (Auto) March 22, 2014 11:43pm 0.02 T/MM3 N 0.00 -0.03 Immature Granulocyte % (Auto) March 22, 2014 11:43pm 0.2 % N 0.0-0.5 Hepatitis C RNA (PCR) log10 December 27, 2012 11:42am 6.6 - This test is for monitoring of HCV positive patients only andshould not be used as a screening test for HCV infection. Hepatitis C RNA performed at [facility], [address] [place] [address] Aquatic Physiotherapist Nikki Burton MD Icterus Index March 22, 2014 11:43pm < 2 0-7 KV-Tvz-N-Type Natriuretic Peptide February 19, 2012 1:05am 69 [...] Gastric Biopsy November 07, 2008 11:15am Name: RENETTA NAGY Unit #: [id number] : [id number] Sex: M Loc / Svc: [facility] DOS: 04/07/14 Signed Report #: [id number] DIAGNOSTIC IMAGING REPORT TYPE OF EXAM: US ABDOMEN COMPLETE Dictated By: KODAK RODRIGUEZ MD INDICATION: ITS.REASON: 070.54 HEPATITIS C US ABDOMEN COMPLETE: Comparison: CT abdomen and pelvis dated March 23, 2014 Findings: Hepatic parenchyma is homogeneous without evidence for focal mass. The gallbladder is normal. There is no wall thickening, pericholecystic fluid, sonographic Tomas's sign or cholelithiasis. Both the intra and extrahepatic biliary system are of normal caliber with the common duct measuring 4 mm in dimension. Visualized portions of the head and body of the pancreas are unremarkable. Both kidneys are present without collecting system dilatation. The right measures 10.2 cm in length and left measures 10.2 cm. The spleen is unremarkable. The visualized portions of the aorta and IVC are unremarkable. No free fluid. Impression: Negative abdominal sonogram. . Procedures Procedure Status Date Provider(s) HYDRATE IV INFUSION ADD-ON completed 03/22/14 THER/PROPH/DIAG INJ IV PUSH completed 03/22/14 US EXAM ABDOM COMPLETE completed 04/07/14 THER/PROPH/DIAG INJ SC/IM completed 04/24/14 THER/PROPH/DIAG INJ SC/IM completed 04/24/14 EMERGENCY DEPT VISIT completed 04/24/14 [id number]"INJECTION, HYDROMORPHONE, UP TO 4 MG" completed 04/24/14 [id number]"INJECTION, ORPHENADRINE CITRATE, UP TO 60 MG" completed 04/24/14 Encounters Encounter Location Date/Time Registered [facility] 04/26/14 8:10am Registered [facility] 04/25/14 9:55am Departed Emergency Room [facility] 04/24/14 3:03am Registered [facility] 04/07/14 9:36am Departed Emergency Room [facility] 03/22/14 11:17pm
--- OUTSIDE RECORDS SUMMARY | 2016-09-29 14:21 | XMS REPORT | Continuity of Care Document ---
Author Author [facility] Organization [facility] Address Unknown Phone Unavailable Care Team Providers Care Metallurgical Or Materials Technician Name Role Phone SKIP GARCIA MD PP Unavailable Insurance Providers Payer Name Policy Number Subscriber Name Relationship [facility] Plan [id number] Renetta Balderrama 20 Self Medicare [id number] Renetta Balderrama 20 Self Problems No Known Problems or Medical conditions. Family History History Response Recorded Date/Time Hx Abdominal Surgery Y CHOLECYSTECTOMY 12/30/12 8:45pm HX Cerebrovascular Accident N 12/30/12 8:45pm Hx Seizures N 12/30/12 8:45pm Hx Angina N 12/30/12 8:45pm Hx Congestive Heart Failure N 12/30/12 8:45pm Hx Heart Attack N 12/30/12 8:45pm Hx Hypertension Y 12/30/12 8:45pm Hx Chronic Obstructive Pulmonary Disease (COPD) Y 12/30/12 8:45pm Hx Diabetes N 12/30/12 8:45pm Hx Cancer N 12/30/12 8:45pm Hx MRSA N 12/30/12 8:45pm Infectious hepatitis C 12/17/12 1:07pm Respiratory asthma COPD other 12/17/12 1:07pm Social History History Response Recorded Date/Time Smoking Status Current every day smoker 12/30/12 8:45pm Chewing Tobacco Status N 12/30/12 8:45pm Hx Substance Use N DENIES, PAST HX REPORTS VALIUM 12/30/12 8:45pm Hx Alcohol Use N 12/30/12 8:45pm Has the pt used tobacco in the last 12 months Y 12/28/12 6:27am Allergies, Adverse Reactions, Alerts Allergen Type Severity Reaction Last Updated propoxyphene napsylate Allergy Unknown 12/30/12 ketorolac tromethamine Allergy Severe HIVES, ITCHY 12/30/12 acetaminophen Allergy Unknown 12/30/12 tramadol Allergy Severe 12/30/12 Medications Medication Dose Units Route Sig Qty Days Ibuprofen 4 Tab PO Q8H PRN Hydrocodone Bit/Acetaminophen ([place] 5/325 Tablet) 1 Tab PO TID PRN Paroxetine Hcl DAILY Ibuprofen (Motrin) 800 Mg PO PRN Immunizations Name Given Type Hx Influenza Vaccination Y UNKNOWN H Hx Pneumococcal Vaccination Y UNKNOWN H Hx Tetanus, Diptheria, Pertussis N/A SKIN INTACT H Response Recorded Date/Time Status not known Unknown Results Test Date Result Interp. Ref. Range ANCA Pattern June 22, 2008 5:36pm Sent out - Acetaminophen Level December 19, 2012 5:45pm < 10 UG/ML L 10-30 Activated Partial Thromboplast Time December 27, 2012 11:42am 37.5 SEC H 24-36 Alanine Aminotransferase (ALT/SGPT) December 30, 2012 8:55pm 66 U/L N 21-72 Albumin December 30, 2012 8:55pm 4.1 G/DL N 3.5-5.0 Albumin/Globulin Ratio December 30, 2012 8:55pm 1.5 RATIO N 1.1-2.2 Alcohol, Quantitative December 19, 2012 5:45pm <10 MG/DL - Alkaline Phosphatase December 30, 2012 8:55pm 60 U/L N 38-126 Alpha Fetoprotein July 28, 2008 8:26am Sent out - Ammonia July 09, 2011 0:40am < 9 UMOL/L L 9-33 Amylase Level December 30, 2012 8:55pm 79 U/L N 30-110 Anion Gap December 30, 2012 8:55pm 11 MEQ/L N 5-15 Aspartate Amino Transf (AST/SGOT) December 30, 2012 8:55pm 37 U/L N 17-59 B-Type Natriuretic Peptide January 19, 2011 3:30am 27 PG/ML N 15-100 BUN/Creatinine Ratio December 30, 2012 8:55pm 19 RATIO N 6-26 Band Neutrophils # March 04, 2009 2:37pm 0.0 T/MM3 - Band Neutrophils % March 04, 2009 2:37pm 0.0 % N 0-6 Basophils # (Auto) December 30, 2012 8:55pm 0.0 T/MM3 N 0-0.2 Basophils (%) (Auto) December 30, 2012 8:55pm 0.6 % N 0-2 Blood Urea Nitrogen December 30, 2012 8:55pm 17.0 MG/DL N 9-20 Calcium Level December 30, 2012 8:55pm 9.3 MG/DL N 8.4-10.2 Calculated Osmolality December 30, 2012 8:55pm 283 MOSM/KG H 261-280 Carbon Dioxide Level December 30, 2012 8:55pm 28 MEQ/L N 22-30 Chloride Level December 30, 2012 8:55pm 107 MEQ/L N 98-107 Conjugated Bilirubin February 19, 2012 1:05am 0.00 MG/DL N 0.00-0.30 Creatinine December 30, 2012 8:55pm 0.9 MG/DL N 0.8-1.5 D-Dimer February 18, 2011 4:35am < 150 NG/ML 0-230 Eosinophils # (Auto) December 30, 2012 8:55pm 0.3 T/MM3 N 0-0.5 Eosinophils # (Manual) March 01, 2008 2:45pm 0.2 T/MM3 N 0-0.5 Eosinophils % (Manual) March 01, 2008 2:45pm 2.0 % N 0-4 Eosinophils (%) (Auto) December 30, 2012 8:55pm 4.0 % N 0-4 Free Thyroxine July 09, 2011 0:40am 1.23 NG/DL N 0.78-2.19 Gamma Glutamyl Transpeptidase December 12, 2008 3:35pm 107 U/L H 8-78 Globulin December 30, 2012 8:55pm 2.7 G/DL N 2.4-3.6 Glucose Level December 30, 2012 8:55pm 96 MG/DL N 75-110 Hematocrit December 30, 2012 8:55pm 38.6 % L 41-53 Hemoglobin December 30, 2012 8:55pm 13.3 GM/DL L 13.5-17.5 Hemoglobin A1c May 20, 2011 3:42pm 5.3 % L 6-7 Hepatitis A Antibody Total December 27, 2012 11:42am Negative - Hepatitis A IgM Antibody December 12, 2008 3:35pm Negative - Hepatitis B Core IgM Antibody December 12, 2008 3:35pm Negative - Hepatitis B Surface Antibody December 27, 2012 11:42am Negative - Hepatitis B Surface Antibody, Quant December 27, 2012 11:42am <5.00 mIU/mL - Hepatitis B Surface Antigen December 12, 2008 3:35pm Negative - Hepatitis C Antibody December 12, 2008 3:35pm Positive - Hepatitis C Genotype December 27, 2012 11:42am 1a - Hepatitis C Viral RNA December 27, 2012 11:42am [id number] IU/mL - Lipase December 30, 2012 8:55pm 131 U/L N 23-300 Lymphocytes # (Auto) December 30, 2012 8:55pm 2.7 T/MM3 N 1-4.8 Lymphocytes # (Manual) March 04, 2009 2:37pm 2.8 T/MM3 N 1-4.8 Lymphocytes % (Manual) March 04, 2009 2:37pm 20.0 % L 23-45 Lymphocytes (%) (Auto) December 30, 2012 8:55pm 41.5 % N 23-45 Magnesium Level December 17, 2012 1:54am 2.3 MG/DL N 1.6-2.3 Mean Corpuscular Hemoglobin December 30, 2012 8:55pm 32.6 UUG N 26-34 Mean Corpuscular Hemoglobin Concent December 30, 2012 8:55pm 34.5 GM/DL N 31 -37 Mean Corpuscular Volume December 30, 2012 8:55pm 94.6 UM3 N 80-100 Mean Platelet Volume December 30, 2012 8:55pm 8.5 UM3 L 9.4-12.4 Monocytes # (Auto) December 30, 2012 8:55pm 0.6 T/MM3 N 0-0.8 Monocytes # (Manual) March 04, 2009 2:37pm 0.4 T/MM3 N 0-0.8 Monocytes % (Manual) March 04, 2009 2:37pm 3.0 % N 0-9.0 Monocytes (%) (Auto) December 30, 2012 8:55pm 9.4 % H 0-9.0 Neutrophils # (Auto) December 30, 2012 8:55pm 2.9 T/MM3 N 1.8-7.7 Neutrophils # (Manual) March 04, 2009 2:37pm 10.8 T/MM3 H 1.8-7.7 Neutrophils % (Manual) March 04, 2009 2:37pm 77.0 % H 33-66 Neutrophils (%) (Auto) December 30, 2012 8:55pm 44.3 % N 33-66 Platelet Count December 30, 2012 8:55pm 274 T/MM3 N 130-400 Potassium Level December 30, 2012 8:55pm 3.9 MEQ/L N 3.6-5 Prothromb Time International Ratio December 27, 2012 11:42am 1.05 N 0.86-1.10 RDW Standard Deviation December 30, 2012 8:55pm 45.2 FL N 36.9-50.2 Red Blood Count December 30, 2012 8:55pm 4.08 M/MM3 L 4.50-5.90 Salicylates Level December 19, 2012 5:45pm < 1.0 MG/DL L 2-20 Sodium Level December 30, 2012 8:55pm 146 MEQ/L H 134-144 Tests Not Done September 26, 2008 6:14pm Not done - Thyroid Stimulating Hormone (TSH) December 19, 2012 5:45pm 0.22 MIU/L L 0.47- 4.68 Total Bilirubin December 30, 2012 8:55pm 0.50 MG/DL N 0.20-1.30 Total Protein December 30, 2012 8:55pm 6.8 G/DL N 6.3-8.2 Troponin I February 19, 2012 1:05am < 0.012 ng/ml 0-0.12 Unconjugated Bilirubin February 19, 2012 1:05am 0.10 MG/DL N 0.00-1.10 Urine Amphetamines Screen December 19, 2012 5:45pm Negative NG/ML - Urine Bacteria March 04, 2009 2:50pm Trace - Urine Barbiturates Screen December 19, 2012 5:45pm Negative NG/ML - Urine Benzodiazepines Screen December 19, 2012 5:45pm Positive NG/ML - Urine Bilirubin December 17, 2012 3:00am Negative - Urine Blood December 17, 2012 3:00am Negative - Urine Cocaine Screen December 19, 2012 5:45pm Negative NG/ML - Urine Collection Type December 17, 2012 3:00am Voided-not cc-midstr - Urine Color December 17, 2012 3:00am Yellow - Urine Drug Screen Confirmation December 19, 2012 6:08pm Sent out - Urine Glucose (UA) December 17, 2012 3:00am Negative - Urine Ketones December 17, 2012 3:00am Negative - Urine Leukocyte Esterase December 17, 2012 3:00am Negative - Urine Methamphetamines Screen July 29, 2011 5:00am Negative NG/ML - Urine Microalbumin February 12, 2009 11:15am < 6.0 MG/L 0-17 Urine Mucus March 04, 2009 2:50pm Present - Urine Nitrite December 17, 2012 3:00am Negative - Urine Opiates Screen December 19, 2012 5:45pm Negative NG/ML - Urine Phencyclidine Screen July 29, 2011 5:00am Negative NG/ML - Urine Protein December 17, 2012 3:00am Negative - Urine RBC March 04, 2009 2:50pm None seen /HPF - Urine Specific [place] December 17, 2012 3:00am 1.010 L - Urine Tricyclic Antidepressants December 19, 2012 5:45pm Negative NG/ML - Urine Turbidity December 17, 2012 3:00am Clear - Urine Urobilinogen December 17, 2012 3:00am Normal EU/DL - Urine WBC March 04, 2009 2:50pm 0-1 /HPF - Urine pH December 17, 2012 3:00am 6.0 - White Blood Count December 30, 2012 8:55pm 6.6 T/MM3 N 4.5-11.0 Hepatitis C Virus Subtype December 12, 2008 3:35pm Sent out - Urinalysis Comment December 17, 2012 3:00am Microscopic not ind. - Hepatitis C RNA (PCR) Method March 29, 2008 5:37pm Sent out - Hepatitis C RNA Ultraquantitative February 23, 2009 4:20pm Sent out - Urine Methadone Screen December 19, 2012 5:45pm Negative NG/ML - Urine Cannabinoids Screen December 19, 2012 5:45pm Negative NG/ML - Anti-Nuclear Antibody (LAB) December 12, 2008 3:35pm Sent out - Glomerular Filtration Rate Calc December 30, 2012 8:55pm 91 - Immature Granulocyte # (Auto) December 30, 2012 8:55pm 0.01 T/MM3 N 0.00- 0.03 Immature Granulocyte % (Auto) December 30, 2012 8:55pm 0.2 % N 0.0-0.5 Hepatitis C RNA (PCR) log10 December 27, 2012 11:42am 6.6 - Urine Acetaminophen Screen July 29, 2011 5:00am Negative NG/ML - CA-Uvc-S-Type Natriuretic Peptide February 19, 2012 1:05am 67 PG/ML N 0- 175 Urine Microscopic Not Indicated July 29, 2011 5:00am Not indicated - Procedures Procedure Code Date ALCOHOL DETOXIFICATION 94.62 11/02/07 UPPER GI ENDOSCOPY BIOPSY 69920 11/07/08 THER/PROPH/DIAG INJ [place] PUSH 21277 12/27/10 THER/PROPH/DIAG INJ IV PUSH 79905 02/10/11 TX/PRO/DX INJ NEW DRUG ADDON 77710 02/10/11 HYDRATE IV INFUSION ADD-ON 11910 02/10/11 THER/PROPH/DIAG INJ IV PUSH 63204 02/18/11 TX/PRO/DX INJ NEW DRUG ADDON 71722 02/18/11 HYDRATE IV INFUSION ADD-ON 48545 02/18/11 THER/PROPH/DIAG INJ IV PUSH 24166 03/27/11 HYDRATE IV INFUSION ADD-ON 89456 03/27/11 THER/PROPH/DIAG INJ IV PUSH 56371 05/18/11 TX/PRO/DX INJ NEW DRUG ADDON 30746 05/18/11 HYDRATE IV INFUSION ADD-ON 50816 05/18/11 THER/PROPH/DIAG INJ IV PUSH 01969 07/08/11 HYDRATE IV INFUSION ADD-ON 14200 07/08/11 HYDRATE IV INFUSION ADD-ON 05785 07/08/11 HYDRATION IV INFUSION INIT 97573 07/29/11 THER/PROPH/DIAG INJ IV PUSH 91692 12/29/11 THER/PROPH/DIAG INJ IV PUSH 44932 12/30/12 TX/PRO/DX INJ NEW DRUG ADDON 43816 12/30/12 HYDRATE IV INFUSION ADD-ON 15941 12/30/12 Blood Culture 03/27/11 Gram Stain 01/27/08 Helicobacter pylori Rapid Urease 11/07/08 Encounters Encounter Location Date/Time Departed Emergency Room [facility] 12/30/12 7:43pm Discharged Inpatient [facility] 12/17/12 3:19am Registered Emergency Room [facility] 0:00am
--- OUTSIDE RECORDS SUMMARY | 2016-09-29 14:21 | XMS REPORT | Continuity of Care Document ---
Author Author [facility] Organization [facility] Address Unknown Phone Unavailable Support Name Relationship Address Phone Emma DENG MD Caregiver [address] [place] [address] SKIP GARCIA MD Caregiver [address] [place], [place] [id number] YONIS RUIZ MD Caregiver [address] [place] [address] [place] [address] TORY NAM Next Of Kin Unknown [phone] Insurance Providers Payer Name Policy Number Subscriber Name Relationship Medicare [id number] Jamie Nagy 20 Self [employer] Plan [id number] Jamie Nagy 20 Self Problems Medical Problems [...] 03/27/11 Discontinued Meloxicam 15 Mg PO DAILY 09/20/11 10/27/11 Discontinued Ibuprofen 800 Mg PO NEEDED 06/18/11 [...] Cap PO TWICE A DAY 01/11/14 Active Baclofen 1 Tab PO THREE TIMES A DAY 15 Qty 01/13/14 Active Social History Social History Problem Response Recorded Date/Time Smoking Status Former smoker 10/08/2013 9:08pm Chewing Tobacco Status No 10/08/2013 9:08pm Hx Substance Use No 01/13/2014 10:30pm Hx Alcohol Use Yes 01/13/2014 10:30pm Has the pt used tobacco in the last 12 months Yes 01/11/2014 4:23pm Query Response Start Date Stop Date Smoking Status Current every day smoker Hospital Discharge Instructions No hospital discharge instructions. Plan of Care No plan of care. Functional Status Query Response Date Recorded Physical Hygiene Self January 13, 2014 10:30pm Disabilities None January 13, 2014 10:30pm Devices Used None January 13, 2014 10:30pm Dressing Self January 13, 2014 10:30pm Ambulation Self January 13, 2014 10:30pm Diet Self January 13, 2014 10:30pm Mental Status Alert Oriented January 13, 2014 10:50pm Disabilities None January 13, 2014 10:30pm Devices Used None January 13, 2014 10:30pm Physical Hygiene Self January 13, 2014 10:30pm Dressing Self January 13, 2014 10:30pm Ambulation Self January 13, 2014 10:30pm Diet Self January 13, 2014 10:30pm Allergies, Adverse Reactions, Alerts Allergen Type Severity [...] Vital Signs Vital Response Date/Time Temperature (Fahrenheit) 97.4 deg F (96.8 - 99.1) Temperature (Calculated Celsius) 36.43598 degrees C (36.0 - 37.3) Pulse Rate (adult) 76 bpm (60 - 100) Respiratory Rate 20 breaths/min (10 - 20) O2 Sat by Pulse Oximetry 97 % (90 - 100) Blood Pressure 144/92 mm Hg Height 5 ft 11 in Weight 158 lb Body Mass Index 22.0 kg/m^2 Results [...] - Hepatitis A Antibody Total performed at [facility], [address] [place] [address] [employer] Nikki Burton MD Hepatitis A IgM Antibody [...] --Unvaccinated: <5.0 Vaccinated: >=12.0 Test Performed by: [place] [address] Naphthalene Operator Helper: Kaiden Zhang III, M.D. Hepatitis B Surface Ab, [place] [address] [employer] Leatha Burton MD Hepatitis B Surface Antigen December 12, 2008 3:35pm Negative - Hepatitis C Antibody December 12, 2008 3:35pm Positive - Hepatitis C Genotype December 27, 2012 11:42am 1a - Reference Range: Undetected.Testing was done using the Jenkins HCV Genotype II Assay. For research use only. Test performed by: [place], [place] Hepatitis C Viral RNA December 27, 2012 11:42am [id number] IU/mL - HEP C GENOTYPE [id number] Influenza [...] Has specimen been collected/obtained? Y Urine Specific [place] June 18, 2013 2:55am 1.010 L - [...] Report June 24, 2013 3:50pm REFERENCE LAB [id number] - Hepatitis C RNA (PCR) Method March [...] HCV infection. Hepatitis C RNA performed at [facility], [address] [place] [address] [employer] Nikki Burton MD Urine Acetaminophen Screen June 18, 2013 2:55am Negative NG/ML - ZW-Iia-W-Type Natriuretic Peptide February 19, 2012 1:05am 69 [...] steroid injection completed 01/12/14 ANN BURNETT MD Encounters Encounter Location Date/Time Registered Emergency Room [facility] 01/13/14 10:20pm Recent Diagnosis
--- OUTSIDE RECORDS SUMMARY | 2016-09-29 14:21 | XMS REPORT | Continuity of Care Document ---
Author Author [facility] Organization [facility] Address Unknown Phone Unavailable Care Team Providers Care Distribution Field Engineer Name Role Phone LAN HOBBS DO Primary Care Physician [phone] Insurance Providers Payer Name Policy Number Subscriber Name Relationship Medicare [id number] Jamie Nagy 20 Self [facility] [employer] Plan [id number] Jamie Nagy 20 Self Advance Directives Directive Response Recorded Date/Time Advanced Directives Type None 08/22/14 5:46pm Problems Medical Problems Problem Onset Date Status [...] Spasm of cervical paraspinous muscle Unknown Active Costochondritis Unknown Active Acute bronchitis Unknown Active Costochondritis Unknown Active Chest wall pain Unknown Active Acute bronchitis Unknown Active Chest wall pain Unknown Active Knee sprain Unknown Active Knee sprain Unknown Active Left against medical advice Unknown Active Lip laceration Unknown Active Neck pain Unknown Active Rib pain Unknown Active Left against medical advice Unknown Active Cough with hemoptysis Unknown Active Left rib fracture Unknown Active Lung nodule < 6cm on CT Unknown Active Cough with hemoptysis Unknown Active Medications Medication Dose Route Sig [...] Tab PO TID PRN 12/27/12 04/27/13 Discontinued Clonazepam 1 Tab PO NEEDED 05/13/14 Active Ibuprofen Unknown Dose PO Q4H PRN PAIN 08/22/14 Active Baclofen Unknown Dose PO THREE TIMES A DAY 08/22/14 Active Social History Social History Problem Response Recorded Date/Time Chewing Tobacco Status No 10/08/2013 9:08pm Hx Substance Use No 08/22/2014 5:46pm Hx Alcohol Use Y NO ALCOHOL SINCE July 08/22/2014 5:46pm Has the pt used tobacco in the last 12 months Yes 01/11/2014 4:23pm Tobacco Usage smoke 01/13/2014 10:45pm Query Response Start Date Stop Date Smoking Status Former smoker Hospital Discharge Instructions No hospital discharge instructions. Plan of Care No plan of care. Functional Status Query Response Date Recorded Physical Hygiene Self August 22, 2014 5:46pm Disabilities None August 22, 2014 5:46pm Devices Used None August 22, 2014 5:46pm Dressing Self August 22, 2014 5:46pm Ambulation Self August 22, 2014 5:46pm Diet Self August 22, 2014 5:46pm Mental Status Alert Oriented August 22, 2014 5:46pm Disabilities None August 22, 2014 5:46pm Devices Used None August 22, 2014 5:46pm Physical Hygiene Self August 22, 2014 5:46pm Dressing Self August 22, 2014 5:46pm Ambulation Self August 22, 2014 5:46pm Diet Self August 22, 2014 5:46pm Allergies, Adverse Reactions, Alerts Allergen Type Severity Reaction Status Last Updated propoxyphene napsylate Allergy Unknown RASH,NECK SWELLING Active 08/22/14 Acetaminophen Adverse Reaction Unknown CANNOT TAKE DUE TO LIVER Active Tramadol Allergy Severe rash, upset stomach Active 08/22/14 Immunizations Name Given Type Hx Influenza Vaccination No Historical Hx Pneumococcal Vaccination No Historical Hx Tetanus, Diptheria, Pertussis SKIN INTACT Historical Hx Influenza Vaccination No Historical Hx Tetanus Diptheria Y THREE YRS AGO Historical Hx Tetanus, Diptheria, Pertussis SKIN INTACT Historical Hx Tetanus Toxoid Vaccination No Historical Vital Signs Acute Vital Signs Vital Response Date/Time Temperature (Fahrenheit) 97.0 deg F (96.8 - 99.1) Temperature (Calculated Celsius) 36.57638 degrees C (36.0 - 37.3) Pulse Rate (adult) 80 bpm (60 - 100) Respiratory Rate 16 breaths/min (10 - 20) O2 Sat by Pulse Oximetry 98 % (90 - 100) Blood Pressure 140/93 mm Hg Height 5 ft 11 in Weight 170 lb Body Mass Index 23.0 kg/m^2 Results Test Source Date Result Interp. Ref. Range Comments ANCA Pattern June 22, 2008 5:36pm Sent out - Acetaminophen Level December 19, 2012 5:45pm < 10 UG/ML L 10-30 TOXIC <4 HR POST INGESTION: >150 MG/L;TOXIC <12 HR POST INGESTION: >50 MG/L Activated Partial Thromboplast Time March 22, 2014 11:43pm 34.9 SEC N 24-36 Alanine Aminotransferase (ALT/SGPT) August 22, 2014 6:14pm 17 U/L L 21- 72 Albumin August 22, 2014 6:14pm 5.1 G/DL H 3.5-5.0 Albumin/Globulin Ratio August 22, 2014 6:14pm 1.4 RATIO N 1.1-2.2 Alcohol, Quantitative March 22, 2014 11:43pm <10 MG/DL - Alkaline Phosphatase August 22, 2014 6:14pm 78 U/L N 38-126 Alpha Fetoprotein July 28, 2008 8:26am Sent out - Ammonia July 09, 2011 12:40am < 9 UMOL/L L 9-33 Amylase Level March 22, 2014 11:43pm 75 U/L N 30-110 Anion Gap August 22, 2014 6:14pm 18 MEQ/L H 5-15 Anti-Nuclear Antibody (LAB) December 12, 2008 3:35pm Sent out - Aspartate Amino Transf (AST/SGOT) August 22, 2014 6:14pm 25 U/L N 17-59 B-Type Natriuretic Peptide January 19, 2011 3:30am 27 PG/ML N 15-100 BUN/Creatinine Ratio August 22, 2014 6:14pm 6 RATIO N 6-26 Band Neutrophils # March 04, 2009 2:37pm 0.0 T/MM3 - Band Neutrophils % March 04, 2009 2:37pm 0.0 % N 0-6 Basophils # (Auto) August 22, 2014 6:14pm 0.0 T/MM3 N 0-0.2 Basophils (%) (Auto) August 22, 2014 6:14pm 0.4 % N 0-2 Blood Urea Nitrogen August 22, 2014 6:14pm 5.0 MG/DL L 9-20 Calcium Level August 22, 2014 6:14pm 10.3 MG/DL H 8.4-10.2 Calculated Osmolality August 22, 2014 6:14pm 283 MOSM/KG H 261-280 Carbon Dioxide Level August 22, 2014 6:14pm 22 MEQ/L N 22-30 Chemistry Specimen Hemolysis August 22, 2014 6:14pm < 15 0-25 0-25: No Hemolysis.26-70: Slight [...] can falsely decrease Phenytoin. Recommend specimen recollection. Chloride Level August 22, 2014 6:14pm 109 MEQ/L H 98-107 Conjugated Bilirubin February 19, 2012 1:05am 0.00 MG/DL N 0.00-0.30 Creatinine August 22, 2014 6:14pm 0.8 MG/DL N 0.8-1.5 D-Dimer February 18, 2011 4:35am < 150 NG/ML 0-230 <224 NG/ML= PRESUMPTIVE NEGATIVE FOR PE OR DVT>224 NG/ML=ADDITIONAL EVALUATION FOR PE OR DVT RECOMMENDED Eosinophils # (Auto) August 22, 2014 6:14pm 0.3 T/MM3 N 0-0.5 Eosinophils # (Manual) March 01, 2008 2:45pm 0.2 T/MM3 N 0-0.5 Eosinophils % (Manual) March 01, 2008 2:45pm 2.0 % N 0-4 Eosinophils (%) (Auto) August 22, 2014 6:14pm 3.8 % N 0-4 Free Thyroxine July 09, 2011 12:40am 1.23 NG/DL N 0.78-2.19 Gamma Glutamyl Transpeptidase December 12, 2008 3:35pm 107 U/L H 8-78 Globulin August 22, 2014 6:14pm 3.6 G/DL N 2.4-3.6 Glomerular Filtration Rate Calc August 22, 2014 6:14pm 104 - Glucometer April 27, 2013 3:20pm 126 mg/dL H 75-110 Glucose Level August 22, 2014 6:14pm 100 MG/DL N 75-110 Hematocrit August 22, 2014 6:14pm 39.4 % L 41-53 Hemoglobin August 22, 2014 6:14pm 13.9 GM/DL N 13.5-17.5 Hemoglobin A1c May 20, 2011 3:42pm 5.3 % L 6-7 <6.0 NON-DIABETIC RANGE6.0-7.0 ADA THERAPEUTIC RANGE >7.0 ACTION SUGGESTED Hepatitis A Antibody Total December 27, 2012 11:42am Negative - Hepatitis A Antibody Total performed at [facility], [address] [place] [facility] [place] [address] Research Environmental Engineer Nikki Burton MD Hepatitis A IgM Antibody [...] --Unvaccinated: <5.0 Vaccinated: >=12.0 Test Performed by: [place] [address] Nurseryperson: Kaiden Zhang III, M.D. Hepatitis B Surface Ab, [place] [address] Research Environmental Engineer Leatha Burton MD Hepatitis B Surface Antigen December 12, 2008 3:35pm Negative - Hepatitis C Antibody December 12, 2008 3:35pm Positive - Hepatitis C Genotype April 26, 2014 8:21am 1a - Reference Range: Undetected ADDITIONAL INFORMATION This test was performed using the Jenkins RealTime HCV Genotype II assay ([employer] [place], [place]). Test Performed by: [place] [address] Nurseryperson: Wyatt Christie M.D. Hepatitis [place] [address] Research Environmental Engineer Leatha Burton MD Hepatitis C RNA (PCR) Method March 29, 2008 5:37pm Sent out - Hepatitis C RNA (PCR) log10 December 27, 2012 11:42am 6.6 - This test is for monitoring of HCV positive patients only andshould not be used as a screening test for HCV infection. Hepatitis C RNA performed at [facility], [address] [place] [address] Research Environmental Engineer Nikki Burton MD Hepatitis C RNA Ultraquantitative February 23, 2009 4:20pm Sent out - Hepatitis C Viral RNA December 27, 2012 11:42am [id number] IU/mL - HEP C GENOTYPE [id number] Hepatitis C Virus Subtype December 12, 2008 3:35pm Sent out - Icterus Index August 22, 2014 6:14pm < 2 0-7 Immature Granulocyte # (Auto) August 22, 2014 6:14pm 0.01 T/MM3 N 0.00- 0.03 Immature Granulocyte % (Auto) August 22, 2014 6:14pm 0.1 % N 0.0-0.5 Influenza Type A Antigen May 13, 2014 6:36pm Negative - Negative for Flu A protein antigen. Assay sensitivity is90%. Influenza Type B Antigen May 13, 2014 6:36pm Negative - Negative for Flu B protein antigen. Assay sensitivity is90%. Lab Scanned Report April 26, 2014 10:29am LAB TEST FORM REQUEST [id number] - Lipase March 22, 2014 11:43pm 135 U/L N 23-300 Lymphocytes # (Auto) August 22, 2014 6:14pm 2.7 T/MM3 N 1-4.8 Lymphocytes # (Manual) March 04, 2009 2:37pm 2.8 T/MM3 N 1-4.8 Lymphocytes % (Manual) March 04, 2009 2:37pm 20.0 % L 23-45 Lymphocytes (%) (Auto) August 22, 2014 6:14pm 34.9 % N 23-45 Magnesium Level December 17, 2012 1:54am 2.3 MG/DL N 1.6-2.3 Mean Corpuscular Hemoglobin August 22, 2014 6:14pm 32.4 UUG N 26-34 Mean Corpuscular Hemoglobin Concent August 22, 2014 6:14pm 35.3 GM/DL N 31-37 Mean Corpuscular Volume August 22, 2014 6:14pm 91.8 UM3 N 80-100 Mean Platelet Volume August 22, 2014 6:14pm 8.8 UM3 L 9.4-12.4 Monocytes # (Auto) August 22, 2014 6:14pm 0.5 T/MM3 N 0-0.8 Monocytes # (Manual) March 04, 2009 2:37pm 0.4 T/MM3 N 0-0.8 Monocytes % (Manual) March 04, 2009 2:37pm 3.0 % N 0-9.0 Monocytes (%) (Auto) August 22, 2014 6:14pm 6.8 % N 0-9.0 ZM-Tck-G-Type Natriuretic Peptide February 19, 2012 1:05am 67 PG/ML N 0 -175 Rule in cut points: <50 years old=450; 50-75 years old=900; >75 years old=1800; When utilizing ProBNP rule-in cut points, adjustment for impaired renal function is typically not required. Neutrophils # (Auto) August 22, 2014 6:14pm 4.1 T/MM3 N 1.8-7.7 Neutrophils # (Manual) March 04, 2009 2:37pm 10.8 T/MM3 H 1.8-7.7 Neutrophils % (Manual) March 04, 2009 2:37pm 77.0 % H 33-66 Neutrophils (%) (Auto) August 22, 2014 6:14pm 54.0 % N 33-66 Platelet Count August 22, 2014 6:14pm 302 T/MM3 N 130-400 Potassium Level August 22, 2014 6:14pm 3.8 MEQ/L N 3.6-5 Prothromb Time International Ratio March 22, 2014 11:43pm 1.11 H 0.81- 1.09 THERAPUTIC RANGE=2.00-3.00 FOR ANTI-THROMBOSIS THERAPUTIC RANGE=2.50- 3.50 FOR IMPLANTED VALVE RDW Standard Deviation August 22, 2014 6:14pm 47.6 FL N 36.9-50.2 Red Blood Count August 22, 2014 6:14pm 4.29 M/MM3 L 4.50-5.90 Salicylates Level December 19, 2012 5:45pm < 1.0 MG/DL L 2-20 Sodium Level August 22, 2014 6:14pm 149 MEQ/L H 134-144 Tests Not Done September 26, 2008 6:14pm Not done - Has specimen been collected/obtained? Y Thyroid Stimulating Hormone (TSH) December 19, 2012 5:45pm 0.22 MIU/L L 0.47 -4.68 Total Bilirubin August 22, 2014 6:14pm 0.50 MG/DL N 0.20-1.30 Total Protein August 22, 2014 6:14pm 8.7 G/DL H 6.3-8.2 Troponin I May 13, 2014 6:36pm < 0.012 ng/ml 0-0.12 Turbidity August 22, 2014 6:14pm < 20 0-20 Unconjugated Bilirubin February 19, 2012 1:05am 0.10 MG/DL N 0.00-1.10 Urinalysis Comment March 22, 2014 11:43pm Microscopic not ind. - Has specimen been collected/obtained? Y Urine Bacteria March 04, 2009 2:50pm Trace [...] 2009 11:15am < 6.0 MG/L 0-17 Urine Microscopic Not Indicated July 29, 2011 5:00am Not indicated - Has specimen been collected/obtained? Y Urine Mucus March 04, 2009 2:50pm Present - Has specimen been collected/obtained? Y Urine Nitrite March 22, 2014 11:43pm Negative - Has specimen been collected/obtained? Y Urine Protein March 22, 2014 11:43pm Negative - Has specimen been collected/obtained? Y Urine RBC March 04, 2009 2:50pm None seen /HPF - Has specimen been collected/obtained? Y Urine Specific [place] March 22, 2014 11:43pm 1.015 - Has [...] been collected/ obtained? Y White Blood Count August 22, 2014 6:14pm 7.6 T/MM3 N 4.5-11.0 Blood Culture Blood March 27, 2011 9:54am NO GROWTH AFTER 5 DAYS Helicobacter pylori Rapid Urease Gastric Biopsy November 07, 2008 11:15am Gram Stain Leg-Right Lower January 27, 2008 9:54pm Name: JAMIE NAGY Unit #: [id number] : [id number] Sex: M Loc / Svc: ED DOS: 06/22/14 Signed Report #: [id number] DIAGNOSTIC IMAGING REPORT TYPE OF EXAM: KNEE RIGHT 3 VIEWS Dictated By: KODAK RODRIGUEZ MD Indication: ITS.REASON: knee pain Comparison: None Findings: There is no acute fracture, dislocation or malalignment identified. Mild medial joint space narrowing. Impression: No acute osseous abnormality. . Procedures Procedure Status Date Provider(s) X-RAY EXAM OF KNEE 3 completed 06/22/14 EMERGENCY DEPT VISIT completed 06/22/14 EMERGENCY DEPT VISIT completed 08/01/14 [id number] ITEM OR SERVICE completed 08/01/14 Encounters Encounter Location Date/Time Departed Emergency Room [facility] 08/22/14 5:38pm Departed Emergency Room [facility] 08/01/14 6:06am Departed Emergency Room [facility] 06/22/14 4:33am Recent Diagnosis
--- OUTSIDE RECORDS SUMMARY | 2016-09-29 14:22 | XMS REPORT | Continuity of Care Document ---
Author Author [facility] Organization [facility] Address Unknown Phone Unavailable Care Team Providers Care Metal Tank Erector Name Role Phone SKIP GARCIA MD PP Unavailable Insurance Providers Payer Name Policy Number Subscriber Name Relationship [facility] Plan [id number] Renetta Balderrama 20 Self Medicare [id number] Renetta Balderrama 20 Self Problems No Known [...] 4 Tab PO Q8H PRN Hydrocodone Bit/Acetaminophen ([place]ard 5/325 Tablet) 1 Tab PO TID PRN [...] C Viral RNA December 27, 2012 11:42am [id number] IU/mL - Lipase December 30, 2012 8:55pm [...] 2:50pm None seen /HPF - Urine Specific [place] December 17, 2012 3:00am 1.010 L - [...] July 29, 2011 5:00am Negative NG/ML - CC-Aun-S-Type Natriuretic Peptide February 19, 2012 1:05am 67 PG/ML N 0- 175 Urine Microscopic Not Indicated July 29, 2011 5:00am Not indicated - Procedures Procedure Code Date ALCOHOL DETOXIFICATION 94.62 11/02/07 UPPER GI ENDOSCOPY BIOPSY 42955 11/07/08 THER/PROPH/DIAG INJ IV PUSH 13130 12/27/10 THER/PROPH/DIAG INJ IV PUSH 44938 02/10/11 TX/PRO/DX INJ NEW DRUG ADDON 34871 02/10/11 HYDRATE IV INFUSION ADD-ON 92728 02/10/11 THER/PROPH/DIAG INJ IV PUSH 95991 02/18/11 TX/PRO/DX INJ NEW DRUG ADDON 58148 02/18/11 HYDRATE IV INFUSION ADD-ON 33423 02/18/11 THER/PROPH/DIAG INJ IV PUSH 62159 03/27/11 HYDRATE IV INFUSION ADD-ON 69639 03/27/11 THER/PROPH/DIAG INJ IV PUSH 12548 05/18/11 TX/PRO/DX INJ NEW DRUG ADDON 95263 05/18/11 HYDRATE IV INFUSION ADD-ON 62657 05/18/11 THER/PROPH/DIAG INJ IV PUSH 66173 07/08/11 HYDRATE IV INFUSION ADD-ON 08485 07/08/11 HYDRATE IV INFUSION ADD-ON 47807 07/08/11 HYDRATION IV INFUSION INIT 85134 07/29/11 THER/PROPH/DIAG INJ IV PUSH 48853 12/29/11 THER/PROPH/DIAG INJ IV PUSH 81305 12/30/12 TX/PRO/DX INJ NEW DRUG ADDON 42368 12/30/12 HYDRATE IV INFUSION ADD-ON 78753 12/30/12 Blood Culture 03/27/11 Gram Stain 01/27/08 Helicobacter pylori Rapid Urease 11/07/08 Encounters Encounter Location Date/Time Departed Emergency Room [facility] 12/30/12 7:43pm Discharged Inpatient [facility] 12/17/12 3:19am Registered Emergency Room [facility] 0:00am
--- OUTSIDE RECORDS SUMMARY | 2016-09-29 14:22 | XMS REPORT | Continuity of Care Document ---
Author Author [facility] Organization [facility] Address Unknown Phone Unavailable Allergies Active Description Code Type Severity Reaction Onset Reported/Identified Relationship to Patient Clinical Status Yes DARVOCET DARVOCET Drug Allergy Unknown ITCH/RASH 04/01/2005 Yes NO KNOW CONTRAST MEDIA ALLERGY NO KNOW CONTRAST MEDIA ALLERGY Drug Allergy Unknown N/A 2004 Yes No Known Food Allergies No Known Food Allergies Drug Allergy Unknown N/A 04/01/2005 Yes NO KNOWN LATEX ALLERGY/SENSITI NO KNOWN LATEX ALLERGY/SENSITI Drug Allergy Unknown N/A 2004 Yes No Known Drug Intolerances No Known Drug Intolerances Drug Allergy Unknown N/A 04/02/2005 Yes propoxyphene propoxyphene Drug Allergy Unknown N/A 04/02/2005 Yes tramadol tramadol Drug Allergy Unknown HIVES 05/27/2015 Medications Problems Procedures Results Test Result Range CBC W/DIFF - 05/27/15 18:20 EOSINOPHIL # 0.3 k/cumm 0.1-0.5 EOSINOPHIL % 5 % 2-4 GRANULOCYTE # 4.7 k/cumm 2.0-9.0 GRANULOCYTE % 63 % 50-75 LYMPHOCYTE # 1.6 k/cumm 1.0-4.0 LYMPHOCYTE % 21 % 20-30 MEAN CELL HGB 32.5 pg 27.0-33.0 MEAN CELL HGB CONCENTRATION 34.1 g/dL 32.0-37.0 MEAN CELL VOLUME 95.1 fl 80.0-100.0 MONOCYTE # 0.9 k/cumm 0.1-1.0 MONOCYTE % 11 % 4-6 RED BLOOD CELL 3.88 m/cumm 4.00-6.00 RED CELL DISTRIBUTION WIDTH 14.1 % 11.0- 15.6 WHITE BLOOD CELL 7.4 k/cumm 5.0-10.0 HEMOGLOBIN 12.6 gm/dL 14.0-18.0 HEMATOCRIT 36.9 % 40.0-54.0 PLATELET COUNT 236 k/cumm 150-400 HEPATIC FUNCTION PANEL - 05/27/15 18:20 BILI UNCONJUGATED 0.2 mg/dL 0.0-0.7 AST/SGOT 16 Units/L 10-37 ALT/SGPT 19 Units/L < 66 TOTAL PROTEIN 7.6 gm/dL 6.4-8.2 ALBUMIN 3.4 gm/dL 3.4-5.0 BILI TOTAL 0.3 mg/dL 0.0-1.0 ALKALINE PHOSPHATASE TOTAL 59 IU/L 45- 117 BILI CONJUGATED 0.1 mg/dL 0.0-0.3 LIPASE - 05/27/15 18:20 LIPASE 174 Units/L 73-393 CHEM/HEM PROFILE-BEDSIDE - 05/27/15 18:23 POTASSIUM 3.8 mmol/L 3.5-5.3 METHOD Bedside ANION GAP 20 mmol/L 10-20 METHOD Bedside GLUCOSE 104 mg/dL 70-99 BLOOD UREA NITROGEN 13 mg/dL 7-20 CREATININE 0.9 mg/dL 0.7-1.3 HEMOGLOBIN 12.2 gm/dL 14.0-18.0 HEMATOCRIT 36.0 % 40.0-54.0 SODIUM 143 mmol/L 135-148 CHLORIDE 108 mmol/L 98-110 CARBON DIOXIDE 20 mmol/L 21-32 CALCIUM IONIZED 4.6 mg/dL 4.5-5.3 URINALYSIS, ROUTINE - 05/27/15 18:27 UA LEUKOCYTE ESTERASE DIPSTICK NEGATIVE NEGATIVE UA NITRITE DIPSTICK NEGATIVE NEGATIVE UA PROTEIN DIPSTICK NEGATIVE NEGATIVE UA GLUCOSE DIPSTICK NEGATIVE NEGATIVE UA KETONE DIPSTICK NEGATIVE NEGATIVE UA UROBILINOGEN DIPSTICK NORMAL NORMAL UA BILIRUBIN DIPSTICK NEGATIVE NEGATIVE UA BLOOD DIPSTICK NEGATIVE NEGATIVE UA SPECIFIC GRAVITY <=1.005 1.015-1.025 UR PH 6.0 5.0-7.0 Encounters ACCT No. Visit Date/Time Discharge Status Pt. Type Provider Facility Loc./Unit Complaint [id number] 05/27/2015 17:44:00 2014 20:32:00 DIS Emergency Rocky Aly DO [facility] W.MYRTLE [id number] 01/29/2014 04:22:00 2013 07:32:00 DIS Emergency Morgan Cheung DO [facility] W.EDS
--- OUTSIDE RECORDS SUMMARY | 2016-09-29 14:22 | XMS REPORT | Continuity of Care Document ---
Author Author [facility] Organization [facility] Address Unknown Phone Unavailable Support Name Relationship Address Phone ANN BURNETT MD Caregiver [address] [place] [phone] Emma DENG MD Caregiver [address] [place], [place] [id number] SKIP GARCIA MD Caregiver [address] [place] [phone] TORY NAM Next Of Kin Unknown [phone] Insurance Providers Payer Name Policy Number Subscriber Name Relationship Medicare [id number] Jamie Nagy 20 Self [employer] Plan [id number] Jamie Nagy 20 Self Problems Medical Problems [...] Physical Hygiene Self January 13, 2014 10:30pm Physical Hygiene Self January 13, 2014 10:30pm Allergies, Adverse Reactions, Alerts Allergen Type Severity Reaction Status Last Updated propoxyphene napsylate Allergy Unknown RASH,NECK SWELLING Active 01/13/14 Acetaminophen Adverse Reaction Unknown CANNOT TAKE DUE TO LIVER Active Tramadol Allergy Severe rash, upset stomach Active 01/26/14 Immunizations Name Given Type Hx Influenza Vaccination No Historical Hx Pneumococcal Vaccination No Historical Hx Tetanus, Diptheria, Pertussis N/A SKIN INTACT Historical Hx Influenza Vaccination No Historical Hx Tetanus Diptheria Y THREE YRS AGO Historical Hx Tetanus, Diptheria, Pertussis N/A SKIN INTACT Historical Hx Tetanus Toxoid Vaccination No Historical Vital Signs Acute Vital Signs Vital Response Date/Time Temperature (Fahrenheit) 97.6 deg F (96.8 - 99.1) Temperature (Calculated Celsius) 36.09299 degrees C (36.0 - 37.3) Temperature Source Temporal Pulse Rate (adult) 64 bpm (60 - 100) Respiratory Rate 18 breaths/min (10 - 20) O2 Sat by Pulse Oximetry 97 % (90 - 100) Oxygen Delivery Method Room Air Blood Pressure 131/83 mm Hg Blood Pressure Source Automatic Cuff Height 5 ft 11 in Weight 163 lb Body Mass Index 22.0 kg/m^2 Results [...] - Hepatitis A Antibody Total performed at [facility], [address] [place] [address] Rug Setter [place] Nikki Burton MD Hepatitis A IgM Antibody [...] --Unvaccinated: <5.0 Vaccinated: >=12.0 Test Performed by: [address] [address] Office Cashier: Kaiden Zhang III, M.D. Hepatitis B Surface Ab, [place] [address] Rug Setter [place] Leatha Burton MD Hepatitis B Surface Antigen December 12, 2008 3:35pm Negative - Hepatitis C Antibody December 12, 2008 3:35pm Positive - Hepatitis C Genotype December 27, 2012 11:42am 1a - Reference Range: Undetected.Testing was done using the Elli HCV Genotype II Assay. For research use only. Test performed by: [place], [place] Hepatitis C Viral RNA December 27, 2012 11:42am [id number] IU/mL - HEP C GENOTYPE [id number] Influenza [...] Has specimen been collected/obtained? Y Urine Specific [place] June 18, 2013 2:55am 1.010 L - [...] Report June 24, 2013 3:50pm REFERENCE LAB [id number] - Hepatitis C RNA (PCR) Method March [...] HCV infection. Hepatitis C RNA performed at [facility], [address] [place] [address] Rug Setter [place] Nikki Burton MD Urine Acetaminophen Screen June 18, 2013 2:55am Negative NG/ML - CP-Qza-F-Type Natriuretic Peptide February 19, 2012 1:05am 69 [...] Encounters Encounter Location Date/Time Departed Emergency Room [facility] 01/13/14 10:20pm
--- OUTSIDE RECORDS SUMMARY | 2016-09-29 14:23 | XMS REPORT | Continuity of Care Document ---
Author Author [facility] Organization [facility] Address Unknown Phone Unavailable Care Team Providers Care Glass Etcher Helper Name Role Phone SKIP GARCIA MD PP Unavailable Insurance Providers Payer Name Policy Number Subscriber Name Relationship [facility] Plan [id number] Renetta Balderrama 20 Self Medicare [id number] Renetta Balderrama 20 Self Problems No Known [...] 4 Tab PO Q8H PRN Hydrocodone Bit/Acetaminophen ([place] 5/325 Tablet) 1 Tab PO TID PRN [...] C Viral RNA December 27, 2012 11:42am [id number] IU/mL - Lipase December 30, 2012 8:55pm [...] 2:50pm None seen /HPF - Urine Specific [place] December 17, 2012 3:00am 1.010 L - [...] July 29, 2011 5:00am Negative NG/ML - ZM-Thi-D-Type Natriuretic Peptide February 19, 2012 1:05am 67 PG/ML N 0- 175 Urine Microscopic Not Indicated July 29, 2011 5:00am Not indicated - Procedures Procedure Code Date ALCOHOL DETOXIFICATION 94.62 11/02/07 UPPER GI ENDOSCOPY BIOPSY 06392 11/07/08 THER/PROPH/DIAG INJ IV PUSH 54090 12/27/10 THER/PROPH/DIAG INJ IV PUSH 36061 02/10/11 TX/PRO/DX INJ NEW DRUG ADDON 94255 02/10/11 HYDRATE IV INFUSION ADD-ON 29917 02/10/11 THER/PROPH/DIAG INJ IV PUSH 66523 02/18/11 TX/PRO/DX INJ NEW DRUG ADDON 08787 02/18/11 HYDRATE IV INFUSION ADD-ON 91080 02/18/11 THER/PROPH/DIAG INJ IV PUSH 49597 03/27/11 HYDRATE IV INFUSION ADD-ON 55415 03/27/11 THER/PROPH/DIAG INJ IV PUSH 97771 05/18/11 TX/PRO/DX INJ NEW DRUG ADDON 08315 05/18/11 HYDRATE IV INFUSION ADD-ON 59825 05/18/11 THER/PROPH/DIAG INJ IV PUSH 40310 07/08/11 HYDRATE IV INFUSION ADD-ON 79800 07/08/11 HYDRATE IV INFUSION ADD-ON 34653 07/08/11 HYDRATION IV INFUSION INIT 14889 07/29/11 THER/PROPH/DIAG INJ IV PUSH 71029 12/29/11 THER/PROPH/DIAG INJ IV PUSH 21649 12/30/12 TX/PRO/DX INJ NEW DRUG ADDON 91830 12/30/12 HYDRATE IV INFUSION ADD-ON 11769 12/30/12 Blood Culture 03/27/11 Gram Stain 01/27/08 Helicobacter pylori Rapid Urease 11/07/08 Encounters Encounter Location Date/Time Departed Emergency Room [facility] 12/30/12 7:43pm Discharged Inpatient [facility] 12/17/12 3:19am Registered Emergency Room [facility] 0:00am
--- OUTSIDE RECORDS SUMMARY | 2016-09-29 14:23 | XMS REPORT | Continuity of Care Document ---
Author Author [facility] Organization [facility] Address Unknown Phone Unavailable Care Team Providers Care Melter Supervisor Open Hearth Furnace Name Role Phone SKIP GARCIA MD PP Unavailable Insurance Providers Payer Name Policy Number Subscriber Name Relationship [facility] Plan [id number] Renetta Balderrama 20 Self Medicare [id number] Renetta Balderrama 20 Self Problems No Known [...] 4 Tab PO Q8H PRN Hydrocodone Bit/Acetaminophen ([place] 5/325 Tablet) 1 Tab PO TID PRN [...] C Viral RNA December 27, 2012 11:42am [id number] IU/mL - Lipase December 30, 2012 8:55pm [...] 2:50pm None seen /HPF - Urine Specific [place] December 17, 2012 3:00am 1.010 L - [...] July 29, 2011 5:00am Negative NG/ML - ZP-Rlj-E-Type Natriuretic Peptide February 19, 2012 1:05am 67 PG/ML N 0- 175 Urine Microscopic Not Indicated July 29, 2011 5:00am Not indicated - Procedures Procedure Code Date ALCOHOL DETOXIFICATION 94.62 11/02/07 UPPER GI ENDOSCOPY BIOPSY 30988 11/07/08 THER/PROPH/DIAG INJ IV PUSH 69070 12/27/10 THER/PROPH/[place]J IV PUSH 23511 02/10/11 TX/PRO/DX INJ NEW DRUG ADDON 55581 02/10/11 HYDRATE IV INFUSION ADD-ON 45560 02/10/11 THER/PROPH/DIAG INJ IV PUSH 83651 02/18/11 TX/PRO/DX INJ NEW DRUG ADDON 30347 02/18/11 HYDRATE IV INFUSION ADD-ON 47536 02/18/11 THER/PROPH/DIAG INJ IV PUSH 56167 03/27/11 HYDRATE IV INFUSION ADD-ON 45901 03/27/11 THER/PROPH/DIAG INJ IV PUSH 94889 05/18/11 TX/PRO/DX INJ NEW DRUG ADDON 32733 05/18/11 HYDRATE IV INFUSION ADD-ON 00930 05/18/11 THER/PROPH/DIAG INJ IV PUSH 75282 07/08/11 HYDRATE IV INFUSION ADD-ON 20522 07/08/11 HYDRATE IV INFUSION ADD-ON 33864 07/08/11 HYDRATION IV INFUSION INIT 69888 07/29/11 THER/PROPH/DIAG INJ IV PUSH 92249 12/29/11 THER/PROPH/DIAG INJ IV PUSH 67630 12/30/12 TX/PRO/DX INJ NEW DRUG ADDON 98190 12/30/12 HYDRATE IV INFUSION ADD-ON 84703 12/30/12 Blood Culture 03/27/11 Gram Stain 01/27/08 Helicobacter pylori Rapid Urease 11/07/08 Encounters Encounter Location Date/Time Departed Emergency Room [facility] 12/30/12 7:43pm Discharged Inpatient [facility] 12/17/12 3:19am Registered Emergency Room [facility] 0:00am
--- OUTSIDE RECORDS SUMMARY | 2016-09-29 14:23 | XMS REPORT | Continuity of Care Document ---
Author Author [facility] Organization [facility] Address Unknown Phone Unavailable Care Team Providers Care Senior User Experience Architect Name Role Phone ADAL LOBO MD Primary Care Physician [phone] Insurance Providers Payer Name Policy Number Subscriber Name Relationship Medicare [id number] Jamie Nagy 20 Self [employer] [place] [employer] Plan [id number] Jamie Nagy 20 Self Problems Medical Problems [...] Unknown Active Chest wall pain Unknown Active Medications Medication Dose Route Sig [...] Tab PO TID PRN 12/27/12 04/27/13 Discontinued Baclofen 1 Tab PO THREE TIMES A DAY PRN PRN ORDERS 30 Qty 04/24/14 Active Clonazepam 1 Tab PO NEEDED 05/13/14 Active Azithromycin 250 Mg PO DAILY 4 Qty 05/13/14 Active Prednisone 10 Mg PO DIRECTED 24 Qty 5 Tablets by mouth daily for 2 days THEN, 05/15/14 Active Social History Social History Problem Response Recorded Date/Time Chewing Tobacco Status No 10/08/2013 9:08pm Hx Substance Use No 05/15/2014 1:30am Hx Alcohol Use Y social 05/15/2014 1:30am Has the pt used tobacco in the last 12 months Yes 01/11/2014 4:23pm Tobacco Usage smoke 01/13/2014 10:45pm Query Response Start Date Stop Date Smoking Status Former smoker Hospital Discharge Instructions No hospital discharge instructions. Plan of Care No plan of care. Functional Status Query Response Date Recorded Physical Hygiene Self May 15, 2014 1:30am Disabilities None May 15, 2014 1:30am Devices Used None May 15, 2014 1:30am Dressing Self May 15, 2014 1:30am Ambulation Self May 15, 2014 1:30am Diet Self May 15, 2014 1:30am Mental Status Alert Oriented May 15, 2014 3:16am Disabilities None May 15, 2014 1:30am Devices Used None May 15, 2014 1:30am Physical Hygiene Self May 15, 2014 1:30am Dressing Self May 15, 2014 1:30am Ambulation Self May 15, 2014 1:30am Diet Self May 15, 2014 1:30am Allergies, Adverse Reactions, Alerts Allergen Type Severity Reaction Status Last Updated propoxyphene napsylate Allergy Unknown RASH,NECK SWELLING Active 05/15/14 Acetaminophen Adverse Reaction Unknown CANNOT TAKE DUE TO LIVER Active Tramadol Allergy Severe rash, upset stomach Active 05/15/14 Immunizations Name Given Type Hx Influenza Vaccination No Historical Hx Pneumococcal Vaccination No Historical Hx Tetanus, Diptheria, Pertussis SKIN INTACT Historical Hx Influenza Vaccination No Historical Hx Tetanus Diptheria Y THREE YRS AGO Historical Hx Tetanus, Diptheria, Pertussis SKIN INTACT Historical Hx Tetanus Toxoid Vaccination No Historical Vital Signs Acute Vital Signs Vital Response Date/Time Temperature (Fahrenheit) 96.8 deg F (96.8 - 99.1) Temperature (Calculated Celsius) 36.85083 degrees C (36.0 - 37.3) Pulse Rate (adult) 78 bpm (60 - 100) Respiratory Rate 20 breaths/min (10 - 20) O2 Sat by Pulse Oximetry 97 % (90 - 100) Blood Pressure 137/91 mm Hg Height 5 ft 11 in Weight 176 lb Body Mass Index 24.0 kg/m^2 Results Test Source Date Result Interp. Ref. Range Comments ANCA Pattern June 22, 2008 5:36pm Sent out - Acetaminophen Level December 19, 2012 5:45pm < 10 UG/ML L 10-30 TOXIC <4 HR POST INGESTION: >150 MG/L;TOXIC <12 HR POST INGESTION: >50 MG/L Activated Partial Thromboplast Time March 22, 2014 11:43pm 34.9 SEC N 24-36 Alanine Aminotransferase (ALT/SGPT) May 13, 2014 6:36pm 94 U/L H 21 -72 Albumin May 13, 2014 6:36pm 4.4 G/DL N 3.5-5.0 Albumin/Globulin Ratio May 13, 2014 6:36pm 1.5 RATIO N 1.1-2.2 Alcohol, Quantitative March 22, 2014 11:43pm <10 MG/DL - Alkaline Phosphatase May 13, 2014 6:36pm 70 U/L N 38-126 Alpha Fetoprotein July 28, 2008 8:26am Sent out - Ammonia July 09, 2011 12:40am < 9 UMOL/L L 9-33 Amylase Level March 22, 2014 11:43pm 75 U/L N 30-110 Anion Gap May 13, 2014 6:36pm 9 MEQ/L N 5-15 Aspartate Amino Transf (AST/SGOT) May 13, 2014 6:36pm 61 U/L H 17- 59 B-Type Natriuretic Peptide January 19, 2011 3:30am 27 PG/ML N 15-100 BUN/Creatinine Ratio May 13, 2014 6:36pm 13 RATIO N 6-26 Band Neutrophils # March 04, 2009 2:37pm 0.0 T/MM3 - Band Neutrophils % March 04, 2009 2:37pm 0.0 % N 0-6 Basophils # (Auto) May 13, 2014 6:36pm 0.1 T/MM3 N 0-0.2 Basophils (%) (Auto) May 13, 2014 6:36pm 1.2 % N 0-2 Blood Urea Nitrogen May 13, 2014 6:36pm 12.0 MG/DL N 9-20 Calcium Level May 13, 2014 6:36pm 10.0 MG/DL N 8.4-10.2 Calculated Osmolality May 13, 2014 6:36pm 281 MOSM/KG H 261-280 Carbon Dioxide Level May 13, 2014 6:36pm 29 MEQ/L N 22-30 Chloride Level May 13, 2014 6:36pm 108 MEQ/L H 98-107 Conjugated Bilirubin February 19, 2012 1:05am 0.00 MG/DL N 0.00-0.30 Creatinine May 13, 2014 6:36pm 0.9 MG/DL N 0.8-1.5 D-Dimer February 18, 2011 4:35am < 150 NG/ML 0-230 <224 NG/ML= PRESUMPTIVE NEGATIVE FOR PE OR DVT>224 NG/ML=ADDITIONAL EVALUATION FOR PE OR DVT RECOMMENDED Eosinophils # (Auto) May 13, 2014 6:36pm 0.3 T/MM3 N 0-0.5 Eosinophils # (Manual) March 01, 2008 2:45pm 0.2 T/MM3 N 0-0.5 Eosinophils % (Manual) March 01, 2008 2:45pm 2.0 % N 0-4 Eosinophils (%) (Auto) May 13, 2014 6:36pm 4.8 % H 0-4 Free Thyroxine July 09, 2011 12:40am 1.23 NG/DL N 0.78-2.19 Gamma Glutamyl Transpeptidase December 12, 2008 3:35pm 107 U/L H 8-78 Globulin May 13, 2014 6:36pm 3.0 G/DL N 2.4-3.6 Glucose Level May 13, 2014 6:36pm 96 MG/DL N 75-110 Hematocrit May 13, 2014 6:36pm 42.6 % N 41-53 Hemoglobin May 13, 2014 6:36pm 14.4 GM/DL N 13.5-17.5 Hemoglobin A1c May 20, 2011 3:42pm 5.3 % L 6-7 <6.0 NON-DIABETIC RANGE6.0-7.0 ADA THERAPEUTIC RANGE >7.0 ACTION SUGGESTED Hepatitis A Antibody Total December 27, 2012 11:42am Negative - Hepatitis A Antibody Total performed at [facility], [address] [place] [address] Entrance Guard Nikki Burton MD Hepatitis A IgM Antibody [...] --Unvaccinated: <5.0 Vaccinated: >=12.0 Test Performed by: [place] [address] Environmental Science Technician: Kaiden Zhang III, M.D. Hepatitis B Surface Ab, [place] [address] Entrance Guard Leatha Burton MD Hepatitis B Surface Antigen December 12, 2008 3:35pm Negative - Hepatitis C Antibody December 12, 2008 3:35pm Positive - Hepatitis C Genotype April 26, 2014 8:21am 1a - Reference Range: Undetected ADDITIONAL INFORMATION This test was performed using the Jenkins RealTime HCV Genotype II assay ([employer] [place], [place]). Test Performed by: [place] [address] Environmental Science Technician: Wyatt Christie M.D. Hepatitis C Genotype performed at [facility], [address] [place] [address] Entrance Guard Leatha Burton MD Hepatitis C Viral RNA December 27, 2012 11:42am [id number] IU/mL - HEP C GENOTYPE [id number] Influenza Type A Antigen May 13, 2014 6:36pm Negative - Negative for Flu A protein antigen. Assay sensitivity is90%. Influenza Type B Antigen May 13, 2014 6:36pm Negative - Negative for Flu B protein antigen. Assay sensitivity is90%. Lipase March 22, 2014 11:43pm 135 U/L N 23-300 Lymphocytes # (Auto) May 13, 2014 6:36pm 2.1 T/MM3 N 1-4.8 Lymphocytes # (Manual) March 04, 2009 2:37pm 2.8 T/MM3 N 1-4.8 Lymphocytes % (Manual) March 04, 2009 2:37pm 20.0 % L 23-45 Lymphocytes (%) (Auto) May 13, 2014 6:36pm 35.0 % N 23-45 Magnesium Level December 17, 2012 1:54am 2.3 MG/DL N 1.6-2.3 Mean Corpuscular Hemoglobin May 13, 2014 6:36pm 33.1 UUG N 26-34 Mean Corpuscular Hemoglobin Concent May 13, 2014 6:36pm 33.8 GM/DL N 31-37 Mean Corpuscular Volume May 13, 2014 6:36pm 97.9 UM3 N 80-100 Mean Platelet Volume May 13, 2014 6:36pm 9.0 UM3 L 9.4-12.4 Monocytes # (Auto) May 13, 2014 6:36pm 0.7 T/MM3 N 0-0.8 Monocytes # (Manual) March 04, 2009 2:37pm 0.4 T/MM3 N 0-0.8 Monocytes % (Manual) March 04, 2009 2:37pm 3.0 % N 0-9.0 Monocytes (%) (Auto) May 13, 2014 6:36pm 11.7 % H 0-9.0 Neutrophils # (Auto) May 13, 2014 6:36pm 2.9 T/MM3 N 1.8-7.7 Neutrophils # (Manual) March 04, 2009 2:37pm 10.8 T/MM3 H 1.8-7.7 Neutrophils % (Manual) March 04, 2009 2:37pm 77.0 % H 33-66 Neutrophils (%) (Auto) May 13, 2014 6:36pm 47.0 % N 33-66 Platelet Count May 13, 2014 6:36pm 259 T/MM3 N 130-400 Potassium Level May 13, 2014 6:36pm 3.9 MEQ/L N 3.6-5 Prothromb Time International Ratio March 22, 2014 11:43pm 1.11 H 0.81- 1.09 THERAPUTIC RANGE=2.00-3.00 FOR ANTI-THROMBOSIS THERAPUTIC RANGE=2.50- 3.50 FOR IMPLANTED VALVE RDW Standard Deviation May 13, 2014 6:36pm 47.2 FL N 36.9-50.2 Red Blood Count May 13, 2014 6:36pm 4.35 M/MM3 L 4.50-5.90 Salicylates Level December 19, 2012 5:45pm < 1.0 MG/DL L 2-20 Sodium Level May 13, 2014 6:36pm 146 MEQ/L H 134-144 Tests Not Done September 26, 2008 6:14pm Not done - Has specimen been collected/obtained? Y Thyroid Stimulating Hormone (TSH) December 19, 2012 5:45pm 0.22 MIU/L L 0.47 -4.68 Total Bilirubin May 13, 2014 6:36pm 0.60 MG/DL N 0.20-1.30 Total Protein May 13, 2014 6:36pm 7.4 G/DL N 6.3-8.2 Troponin I May 13, 2014 6:36pm < 0.012 ng/ml 0-0.12 Unconjugated Bilirubin February [...] Has specimen been collected/obtained? Y Urine Specific [place] March 22, 2014 11:43pm 1.015 - Has [...] been collected/ obtained? Y White Blood Count May 13, 2014 6:36pm 6.1 T/MM3 N 4.5-11.0 Chemistry Specimen Hemolysis May 13, 2014 6:36pm < 15 0-25 0-25 : No Hemolysis.26-70: [...] 26, 2014 10:29am LAB TEST FORM REQUEST [id number] - Hepatitis C RNA (PCR) Method March 29, 2008 5:37pm Sent out - Hepatitis C RNA Ultraquantitative February 23, 2009 4:20pm Sent out - Anti-Nuclear Antibody (LAB) December 12, 2008 3:35pm Sent out - Turbidity May 13, 2014 6:36pm < 20 0-20 Glomerular Filtration Rate Calc May 13, 2014 6:36pm 91 - Immature Granulocyte # (Auto) May 13, 2014 6:36pm 0.02 T/MM3 N 0.00 -0.03 Immature Granulocyte % (Auto) May 13, 2014 6:36pm 0.3 % N 0.0-0.5 Hepatitis C RNA (PCR) log10 December 27, 2012 11:42am 6.6 - This test is for monitoring of HCV positive patients only andshould not be used as a screening test for HCV infection. Hepatitis C RNA performed at [facility], [address] [place] [address] Entrance Guard Nikki Burton MD Icterus Index May 13, 2014 6:36pm < 2 0-7 WG-Psp-E-Type Natriuretic Peptide February 19, 2012 1:05am 69 [...] 2008 11:15am Name: JAMIE NAGY Unit #: [id number] : [id number] Sex: M [place] [facility] [place]: 05/13/14 Signed Report #: [id number] DIAGNOSTIC IMAGING REPORT TYPE OF EXAM: CHEST, PA & LATERAL Dictated By: KODAK RODRIGUEZ MD INDICATION: ITS.REASON: pleuritic chest pain, cough CHEST 2-VIEWS UPRIGHT (PA & LAT): COMPARISON: February 19, 2012 FINDINGS: The lungs are clear without evidence of focal abnormal airspace opacity. There is no pleural effusion or pneumothorax. The heart size, mediastinal contours and pulmonary vascularity are within normal limits. There is no significant skeletal abnormality. IMPRESSION: No acute cardiopulmonary disease. . Procedures Procedure Status Date Provider(s) HYDRATE IV INFUSION ADD-ON completed 03/22/14 THER/PROPH/DIAG INJ IV PUSH completed 03/22/14 US EXAM ABDOM COMPLETE completed 04/07/14 THER/PROPH/DIAG INJ SC/IM completed 04/24/14 THER/PROPH/DIAG INJ SC/IM completed 04/24/14 EMERGENCY DEPT VISIT completed 04/24/14 [id number]"INJECTION, HYDROMORPHONE, UP TO 4 MG" completed 04/24/14 [id number]"INJECTION, ORPHENADRINE CITRATE, UP TO 60 MG" completed 04/24/14 GENOTYPE DNA/RNA HEP C completed 04/26/14 Encounters Encounter Location Date/Time Departed Emergency Room [facility] 05/15/14 1:24am Departed Emergency Room [facility] 05/13/14 5:34pm Registered [facility] 04/26/14 8:10am Departed Emergency Room [facility] 04/24/14 3:03am Registered [facility] 04/07/14 9:36am Departed Emergency Room [facility] 03/22/14 11:17pm Recent Diagnosis
--- OUTSIDE RECORDS SUMMARY | 2016-09-29 14:24 | XMS REPORT | Continuity of Care Document ---
Author Author [facility] Organization [facility] Address Unknown Phone Unavailable Care Team Providers Care Support Services Tech Name Role Phone Emma DENG MD Primary Care Physician [phone] Insurance Providers Payer Name Policy Number Subscriber Name Relationship Medicare [id number] Jamie Nagy 20 Self [facility] [employer] Plan [id number] Jamie Nagy 20 Self Advance Directives Directive Response Recorded Date/Time Advanced Directives Type None 08/01/14 6:06am Problems Medical Problems Problem Onset Date Status [...] pain Unknown Active Rib pain Unknown Active Medications Medication Dose Route [...] Clonazepam 1 Tab PO NEEDED 05/13/14 Active Gabapentin 1 Cap PO TWICE A DAY 08/01/14 Active Social History Social History Problem Response Recorded Date/Time Chewing Tobacco Status No 10/08/2013 9:08pm Hx Substance Use No 08/01/2014 6:20am Hx Alcohol Use Yes 08/01/2014 6:20am Has the pt used tobacco in the last 12 months Yes 01/11/2014 4:23pm Tobacco Usage smoke 01/13/2014 10:45pm Query Response Start Date Stop Date Smoking Status Former smoker Hospital Discharge Instructions No hospital discharge instructions. Plan of Care No plan of care. Functional Status Query Response Date Recorded Physical Hygiene Self August 01, 2014 6:20am Disabilities None August 01, 2014 6:20am Devices Used None August 01, 2014 6:20am Dressing Self August 01, 2014 6:20am Ambulation Self August 01, 2014 6:20am Diet Self August 01, 2014 6:20am Mental Status Alert Oriented August 01, 2014 6:51am Disabilities None August 01, 2014 6:20am Devices Used None August 01, 2014 6:20am Physical Hygiene Self August 01, 2014 6:20am Dressing Self August 01, 2014 6:20am Ambulation Self August 01, 2014 6:20am Diet Self August 01, 2014 6:20am Allergies, Adverse Reactions, Alerts Allergen Type Severity Reaction Status Last Updated propoxyphene napsylate Allergy Unknown RASH,NECK SWELLING Active 08/01/14 Acetaminophen Adverse Reaction Unknown CANNOT TAKE DUE TO LIVER Active 08/13 Tramadol Allergy Severe rash, upset stomach Active 08/01/14 Immunizations Name Given Type Hx Influenza Vaccination No Historical Hx Pneumococcal Vaccination No Historical Hx Tetanus, Diptheria, Pertussis SKIN INTACT Historical Hx Influenza Vaccination No Historical Hx Tetanus Diptheria Y THREE YRS AGO Historical Hx Tetanus, Diptheria, Pertussis SKIN INTACT Historical Hx Tetanus Toxoid Vaccination No Historical Vital Signs Acute Vital Signs Vital Response Date/Time Temperature (Fahrenheit) 98.2 deg F (96.8 - 99.1) Temperature (Calculated Celsius) 36.20524 degrees C (36.0 - 37.3) Pulse Rate (adult) 95 bpm (60 - 100) Respiratory Rate 18 breaths/min (10 - 20) O2 Sat by Pulse Oximetry 95 % (90 - 100) Blood Pressure 195/97 mm Hg Height 5 ft 10 in Weight 170 lb Body Mass Index 24.0 kg/m^2 Results [...] - Hepatitis A Antibody Total performed at [facility], [address] [place] [address] Oil Field Equipment Mechanic Nikki Burton MD Hepatitis A IgM Antibody [...] --Unvaccinated: <5.0 Vaccinated: >=12.0 Test Performed by: [place] [address] Financial Services Professional: Kaiden Zhang III, M.D. Hepatitis B Surface Ab, [place] [address] Oil Field Equipment Mechanic Leatha Burton MD Hepatitis B Surface Antigen December 12, 2008 3:35pm Negative - Hepatitis C Antibody December 12, 2008 3:35pm Positive - Hepatitis C Genotype April 26, 2014 8:21am 1a - Reference Range: Undetected ADDITIONAL INFORMATION This test was performed using the Jenkins RealTime HCV Genotype II assay ([employer] [place], [place]). Test Performed by: [place] [address] Financial Services Professional: Wyatt Christie M.D. Hepatitis [place] [address] Oil Field Equipment Mechanic Leatha Burton MD Hepatitis C Viral RNA December 27, 2012 11:42am [id number] IU/mL - HEP C GENOTYPE Z0933 Influenza [...] Has specimen been collected/obtained? Y Urine Specific [place] March 22, 2014 11:43pm 1.015 - Has [...] 26, 2014 10:29am LAB TEST FORM REQUEST [id number] - Hepatitis C RNA (PCR) Method March [...] performed at [facility], [facility][note 3] [place] [address] Oil Field Equipment Mechanic Nikki Burton MD Icterus Index May 13, 2014 6:36pm < 2 0-7 LD-Ucj-K-Type Natriuretic Peptide February 19, 2012 1:05am 69 [...] 2008 9:54pm Name: JAMIE NAGY Unit #: [id number] : 1965 Sex: M Loc / Sv: ED DOS: 06/22/14 Signed Report #: [id number] DIAGNOSTIC IMAGING REPORT TYPE OF EXAM: KNEE RIGHT 3 VIEWS Dictated By: KODAK RODRIGUEZ MD Indication: ITS.REASON: knee pain Comparison: None Findings: There is no acute fracture, dislocation or malalignment identified. Mild medial joint space narrowing. Impression: No acute osseous abnormality. . Procedures Procedure Status Date Provider(s) ROUTINE VENIPUNCTURE completed 05/13/14 CHEST X-RAY 2VW FRONTAL&LATL completed 05/13/14 COMPREHEN METABOLIC PANEL completed 05/13/14 ASSAY OF TROPONIN QUANT completed 05/13/14 COMPLETE CBC W/AUTO DIFF WBC completed 05/13/14 INFLUENZA A/B AG EIA completed 05/13/14 ELECTROCARDIOGRAM TRACING completed 05/13/14 AIRWAY INHALATION TREATMENT completed 05/13/14 EVALUATE PT USE OF INHALER completed 05/13/14 EMERGENCY DEPT VISIT completed 05/13/14 [id number] ITEM OR SERVICE completed 05/13/14 CHEST X-RAY 1 VIEW FRONTAL completed 05/15/14 THER/PROPH/DIAG INJ IV PUSH completed 05/15/14 TX/PRO/DX INJ NEW DRUG ADDON completed 05/15/14 TX/PRO/DX INJ NEW DRUG ADDON completed 05/15/14 EMERGENCY DEPT VISIT completed 05/15/14 [id number]"INJECTION, KETOROLAC TROMETHAMINE, PER 15 MG" completed 05/15/14 [id number]"INJECTION, ONDANSETRON HYDROCHLORIDE, PER 1 MG" completed 05/15/14 [id number]"INJECTION, METHYLPREDNISOLONE SODIUM SUCCINATE, UP TO completed X-RAY EXAM OF KNEE 3 completed 06/22/14 EMERGENCY DEPT VISIT completed 06/22/14 Encounters Encounter Location Date/Time Departed Emergency Room [facility] 08/01/14 6:06am Departed Emergency Room [facility] 06/22/14 4:33am Departed Emergency Room [facility] 05/15/14 1:24am Departed Emergency Room [facility] 05/13/14 5:34pm Recent Diagnosis
--- OUTSIDE RECORDS SUMMARY | 2016-09-29 14:24 | XMS REPORT | Continuity of Care Document ---
Author Author [facility] Organization [facility] Address Unknown Phone Unavailable Care Team Providers Care Well Drill Operator Helper Cable Tool Name Role Phone Emma DENG MD Primary Care Physician [phone] Insurance Providers Payer Name Policy Number Subscriber Name Relationship Medicare [id number] Jamie Nayg 20 Self [facility] [employer] Plan [id number] Jamie Nagy 20 Self Advance Directives Directive Response Recorded Date/Time Advanced Directives Type None 06/22/14 4:35am Problems Medical Problems Problem Onset Date Status [...] pain Unknown Active Knee sprain Unknown Active Medications Medication Dose Route Sig [...] Clonazepam 1 Tab PO NEEDED 05/13/14 Active Social History Social History Problem Response Recorded Date/Time Chewing Tobacco Status No 10/08/2013 9:08pm Hx Substance Use No 06/22/2014 4:43am Hx Alcohol Use Yes 06/22/2014 4:43am Has the pt used tobacco in the last 12 months Yes 01/11/2014 4:23pm Tobacco Usage smoke 01/13/2014 10:45pm Query Response Start Date Stop Date Smoking Status Former smoker Hospital Discharge Instructions No hospital discharge instructions. Plan of Care No plan of care. Functional Status Query Response Date Recorded Physical Hygiene Self June 22, 2014 4:43am Disabilities None June 22, 2014 4:43am Devices Used None June 22, 2014 4:43am Dressing Self June 22, 2014 4:43am Ambulation Self June 22, 2014 4:43am Diet Self June 22, 2014 4:43am Mental Status Alert June 22, 2014 4:43am Disabilities None June 22, 2014 4:43am Devices Used None June 22, 2014 4:43am Physical Hygiene Self June 22, 2014 4:43am Dressing Self June 22, 2014 4:43am Ambulation Self June 22, 2014 4:43am Diet Self June 22, 2014 4:43am Allergies, Adverse Reactions, Alerts Allergen Type Severity [...] F (96.8 - 99.1) Temperature (Calculated Celsius) 36.96783 degrees C (36.0 - 37.3) Pulse Rate (adult) 52 bpm (60 - 100) Respiratory Rate 24 breaths/min (10 - 20) O2 Sat by Pulse Oximetry 96 % (90 - 100) Blood Pressure 171/92 mm Hg Height 5 ft 11 in [...] - Hepatitis A Antibody Total performed at [facility], [address] [place] [address] Equipment Operator Wage Hand Nikki Burton MD Hepatitis A IgM Antibody [...] --Unvaccinated: <5.0 Vaccinated: >=12.0 Test Performed by: [place] [address] Premium Card Cancellation Clerk: Kaiden Zhang III, M.D. Hepatitis B Surface Ab, [place] [address] Equipment Operator Wage Hand Leatha Burton MD Hepatitis B Surface Antigen December 12, 2008 3:35pm Negative - Hepatitis C Antibody December 12, 2008 3:35pm Positive - Hepatitis C Genotype April 26, 2014 8:21am 1a - Reference Range: Undetected ADDITIONAL INFORMATION This test was performed using the Jenkins RealTime HCV Genotype II assay ([employer] [place], [place]). Test Performed by: [place] [address] Premium Card Cancellation Clerk: Wyatt Christie M.D. Hepatitis C Genotype performed at [address] [address] Equipment Operator Wage Hand Leatha Burton MD Hepatitis C Viral RNA December 27, 2012 11:42am [id number] IU/mL - HEP C GENOTYPE Z0933 Influenza [...] Has specimen been collected/obtained? Y Urine Specific [place] March 22, 2014 11:43pm 1.015 - Has [...] 26, 2014 10:29am LAB TEST FORM REQUEST [id number] - Hepatitis C RNA (PCR) Method March [...] Hepatitis C RNA performed at [facility], [address] [place] [address] Equipment Operator Wage Hand Nikki Burton MD Icterus Index May 13, 2014 6:36pm < 2 0-7 ID-Sgy-R-Type Natriuretic Peptide February 19, 2012 1:05am 69 [...] 2008 11:15am Name: JAMIE NAGY Unit #: [id number] : 1965 Sex: M Loc / Svc: ED DOS: 05/15/14 Signed Report #: [id number] DIAGNOSTIC IMAGING REPORT TYPE OF EXAM: CHEST 1 VIEW Dictated By: KODAK RODRIGUEZ MD INDICATION: ITS.REASON: bronchitis, chest wall pain CHEST 1 VIEW: Comparison: May 13, 2014 FINDINGS: The lungs are clear. There is no abnormal airspace opacity, pleural effusion or pneumothorax identified. The heart size, pulmonary vasculature and mediastinum are within normal limits. No significant skeletal abnormality is seen. IMPRESSION: No acute cardiopulmonary abnormality. . Procedures Procedure Status Date Provider(s) US EXAM ABDOM COMPLETE completed 04/07/14 THER/PROPH/DIAG INJ SC/IM completed 04/24/14 THER/PROPH/DIAG INJ SC/IM completed 04/24/14 EMERGENCY DEPT VISIT completed 04/24/14 [id number]"INJECTION, HYDROMORPHONE, UP TO 4 MG" completed 04/24/14 [id number]"INJECTION, ORPHENADRINE CITRATE, UP TO 60 MG" completed 04/24/14 GENOTYPE DNA/RNA HEP C completed 04/26/14 ROUTINE VENIPUNCTURE completed 05/13/14 CHEST X-RAY 2VW FRONTAL&LATL completed 05/13/14 COMPREHEN METABOLIC PANEL completed 05/13/14 ASSAY OF TROPONIN QUANT completed 05/13/14 COMPLETE CBC W/AUTO DIFF WBC completed 05/13/14 INFLUENZA A/B AG EIA completed 05/13/14 ELECTROCARDIOGRAM TRACING completed 05/13/14 AIRWAY INHALATION TREATMENT completed 05/13/14 EVALUATE PT USE OF INHALER completed 05/13/14 EMERGENCY DEPT VISIT completed 05/13/14 [id number] ITEM OR SERVICE completed 05/13/14 CHEST X-RAY 1 VIEW FRONTAL completed 05/15/14 THER/PROPH/DIAG INJ IV PUSH completed 05/15/14 TX/PRO/DX INJ NEW DRUG ADDON completed 05/15/14 TX/PRO/DX INJ NEW DRUG ADDON completed 05/15/14 EMERGENCY DEPT VISIT completed 05/15/14 [id number]"INJECTION, KETOROLAC TROMETHAMINE, PER 15 MG" completed 05/15/14 [id number]"INJECTION, ONDANSETRON HYDROCHLORIDE, PER 1 MG" completed 05/15/14 [id number]"INJECTION, METHYLPREDNISOLONE SODIUM SUCCINATE, UP TO completed Encounters Encounter Location Date/Time Departed Emergency Room [facility] 06/22/14 4:33am Departed Emergency Room [facility] 05/15/14 1:24am Departed Emergency Room [facility] 05/13/14 5:34pm Registered Clinic [facility] 04/26/14 8:10am Departed Emergency Room [facility] 04/24/14 3:03am Registered Clinic [facility] 04/07/14 9:36am Recent Diagnosis
--- NOTE | 2016-09-29 14:25 | ERPDOC ---
Departure Disposition Decision Date: September 29, 2016 Disposition Decision Time: 14:35 (MATT ALANIZ APRN) Disposition: 01 DISCHARGED HOME, SELF-CARE Impression Impression (MATT ALANIZ APRN) Impression: Primary Impression: Shingles Herpes zoster complications: without complications Qualified Codes: B02.9 - Zoster without complications Severity: Moderate (MATT ALANIZ APRN) Condition: Stable Seen By: Mid-level only (MATT ALANIZ APRN) Referrals: LAN HOBBS DO (Family) Patient Instructions: Shingles (ED) Problems/Meds/Labs Reviewed?: Yes Medications reviewed and manag: Yes (MATT ALANIZ APRN) Additional Instructions: You have shingles. Take out Valacyclovir 1000 mg 3 times daily for 7 days. Your rash and pain should improve with this medication. You may take norco 5/325mg, 1-2 tabs every 6 hours as needed. Follow treatment plan (see discharge packet). Follow as needed with your PCP. Follow up care ordered?: Yes Mental Status: Alert, Oriented (MATT ALANIZ APRN) Scripts Hydrocodone/Acetaminophen ([place] 5-325 Tablet) 5-325 Tablet 1-2 TAB PO Q6HPRN, #15 TAB Prov: MATT ALANIZ APRN 09/29/16 Valacyclovir HCl (Valacyclovir) 1,000 Mg Tablet 1 TAB PO TID for 7 Days, #21 TAB Prov: MATT ALANIZ APRN 09/29/16 HPI - Skin General General Stated Complaint: BACK PAIN/BURNING RASH Time Seen by Provider: 14:21 Source: patient (MATT ALANIZ APRN) Time Seen by Provider: 14:21 (IRINA DERAS DO) HPI - Skin General Initial Comments 51 YO M presents to ED with report of burning rash on right flank. Patient says rash started 2-3 days ago and initially itched but them has developed in burning pain. Denies fever, chill, SOA, new medication/foods/detergent/soaps. Pain Scale: Now: 5/10 Location: torso Associated Symptoms: rash, DENIES: fever, paresthesia (MATT ALANIZ APRN) Allergies: Coded Allergies: tramadol (Verified Allergy, Severe, rash, upset stomach, 09/29/16) propoxyphene napsylate (Verified Allergy, Unknown, RASH,NECK SWELLING, 09/29) Past History Past Medical History Metabolic: hypertension Cardiac: DENIES: angina Respiratory: COPD, asthma GI: GERD, gallbladder disease, other Male: DENIES: renal insufficiency Neurological: DENIES: seizures Musculoskeletal: neck pain Infectious: hepatitis C Psychological: anxiety, depression (MATT ALANIZ GRAIN SHOVELER) Surgical History General: gallbladder, tonsils (MATT ALANIZ GRAIN SHOVELER) Family History Family PMH: FOUND: diabetes, hypertension (MATT ALANIZ GRAIN SHOVELER) Vaccines Hx Influenza Vaccination: No Hx Pneumococcal Vaccination: No Hx Tetanus Diptheria: Yes (THREE YRS AGO) (MATT ALANIZ GRAIN SHOVELER) Social History # of Packs/Tins per Day: 0.5 Substance Use Type: does not use Alcohol Intake: none Sexuality: female partner (MATT ALANIZ GRAIN SHOVELER) Review of Systems Constitutional Constitutional: DENIES: chills, dizziness, fever, weakness (MATT ALANIZ GRAIN SHOVELER) Eyes General: DENIES: erythema, exudate Lids/Accessories: DENIES: erythema, swelling (MATT ALANIZ GRAIN SHOVELER) ENMT Ears: DENIES: pain Sinuses: DENIES: congestion, rhinorrhea Mouth/Throat: DENIES: sore throat (ELVIS ALANIZS A GRAIN SHOVELER) Cardiovascular Cardiac: DENIES: chest pain, murmur Rhythm/Rate: DENIES: palpitations (ELVIS ALANIZS A GRAIN SHOVELER) Pulmonary Respiratory: DENIES: cough, dyspnea (ELVIS ALANIZS A GRAIN SHOVELER) GI Upper Abdomen: DENIES: nausea, pain, vomiting Lower Abdomen: DENIES: diarrhea, pain (ELVIS ALANIZS A GRAIN SHOVELER) General: DENIES: dysuria, pain (ELVIS ALANIZS A GRAIN SHOVELER) Musculoskeletal General: DENIES: joint pain, pain, tenderness (ELVIS ALANIZS A GRAIN SHOVELER) Integumentary Skin: itching (and burning), rash, see HPI (ELVIS ALANIZS A GRAIN SHOVELER) Neurological General: DENIES: ataxia, change in strength, numbness, paralysis/paresis, weakness (ELVIS ALANIZS A GRAIN SHOVELER) Psychiatric Psychiatric: DENIES: anxiety, depression, nervousness (ELVIS ALANIZS A GRAIN SHOVELER) Physical Exam General General Nourishment: well nourished, well developed, no acute distress, adult General Body Habitus: well groomed (MATT ALANIZ APRN) Vitals and Pain First Documented Vital Signs Date Time Temp Pulse Resp B/P Pulse Ox O2 Delivery O2 Flow Rate FiO2 09/29/16 14:18 98.3 73 16 170/87 97 Room Air [facility]) Vitals and Pain Weight: Kilograms: Height (feet): 5 Height (inches): 8.00 Triage Pain Scale: (MATT ALANIZ APRN) Eyes (brief) Eyes Brief: found: EOMI (MATT ALANIZ APRN) ENMT (brief) ENMT Brief: NOT FOUND: nasal exudate, nasal swelling (MATT ALANIZ APRN) Neck (brief) Neck: FOUND: trachea midline (MATT ALANIZ APRN) Respiratory (brief) Respiratory: FOUND: clear all [place], equal bilaterally, symmetrical (MATT ALANIZ APRN) Cardiovascular (brief) Cardiac: FOUND: regular rate, regular rhythm (MATT ALANIZ APRN) Musculoskeletal (brief) Musculoskeletal Brief: NOT FOUND: deformity, loss of motion (MATT ALANIZ APRN) Integumentary General: FOUND: dry, warm Color: FOUND: pink Rash: FOUND: papular (see below) Comments Crop of erythematous papules with dermatoma pattern over right flank (MATT ALANIZ APRN) Neurologic (brief) Neurological Brief: FOUND: motor-no gross deficits, sensory-no gross deficits ( MATT ALANIZ APRN) Psychiatric (brief) Psychiatric Brief: FOUND: alert, normal affect, oriented (MATT ALANIZ APRN ) Differential Diagnoses Considering: Cellulitis, Contact Dermatitis, Folliculitis, Varicella/Shingles, Viral Exanthem (MATT ALANIZ APRN) Progress Progress Progress I discussed with patient that his symptoms and exam findings are consistent with shingles and answered questions. I discussed treatment plan with patient, follow-up as needed with PCP and return precautions which patient verbalized understanding. (MATT ALANIZ APRN) MATT ALANIZ APRN September 29, 2016 14:[facility] September 30, 2016 07:15
--- OUTSIDE RECORDS SUMMARY | 2016-09-29 14:25 | XMS REPORT | Continuity of Care Document ---
Author Author [facility] Organization [facility] Address Unknown Phone Unavailable Care Team Providers Care Dog Handler Or Trainer Name Role Phone ADAL LOBO MD Primary Care Physician [phone] Insurance Providers Payer Name Policy Number Subscriber Name Relationship Medicare [id number] Jamie Nagy 20 Self [employer] Plan [id number] Jamie Nagy 20 Self Problems Medical Problems [...] Acute bronchitis Unknown Active Costochondritis Unknown Active Medications Medication Dose Route Sig [...] PRN PRN ORDERS 30 Qty 04/24/14 Active Paroxetine HCl 30 Mg PO DAILY 05/13/14 Active Clonazepam 1 Tab PO NEEDED 05/13/14 Active [Hepatitis C Med] 05/13/14 Active Azithromycin 250 Mg PO DAILY 4 Qty 05/13/14 Active Social History Social History Problem Response Recorded Date/Time Chewing Tobacco Status No 10/08/2013 9:08pm Hx Substance Use No 05/13/2014 6:10pm Hx Alcohol Use Y social 05/13/2014 6:10pm Has the pt used tobacco in the last 12 months Yes 01/11/2014 4:23pm Tobacco Usage smoke 01/13/2014 10:45pm Query Response Start Date Stop Date Smoking Status Former smoker Hospital Discharge Instructions No hospital discharge instructions. Plan of Care No plan of care. Functional Status Query Response Date Recorded Physical Hygiene Self May 13, 2014 6:10pm Disabilities None May 13, 2014 6:10pm Devices Used None May 13, 2014 6:10pm Dressing Self May 13, 2014 6:10pm Ambulation Self May 13, 2014 6:10pm Diet Self May 13, 2014 6:10pm Mental Status Alert May 13, 2014 8:15pm Disabilities None May 13, 2014 6:10pm Devices Used None May 13, 2014 6:10pm Physical Hygiene Self May 13, 2014 6:10pm Dressing Self May 13, 2014 6:10pm Ambulation Self May 13, 2014 6:10pm Diet Self May 13, 2014 6:10pm Allergies, Adverse Reactions, Alerts Allergen Type Severity Reaction Status Last Updated propoxyphene napsylate Allergy Unknown RASH,NECK SWELLING Active 05/13/14 Acetaminophen Adverse Reaction Unknown CANNOT TAKE DUE TO LIVER Active Tramadol Allergy Severe rash, upset stomach Active 05/13/14 Immunizations Name Given Type Hx Influenza Vaccination No Historical Hx Pneumococcal Vaccination No Historical Hx Tetanus, Diptheria, Pertussis SKIN INTACT Historical Hx Influenza Vaccination No Historical Hx Tetanus Diptheria Y THREE YRS AGO Historical Hx Tetanus, Diptheria, Pertussis SKIN INTACT Historical Hx Tetanus Toxoid Vaccination No Historical Vital Signs Acute Vital Signs Vital Response Date/Time Temperature (Fahrenheit) 98.9 deg F (96.8 - 99.1) Temperature (Calculated Celsius) 37.56341 degrees C (36.0 - 37.3) Pulse Rate (adult) 74 bpm (60 - 100) Respiratory Rate 15 breaths/min (10 - 20) O2 Sat by Pulse Oximetry 98 % (90 - 100) Blood Pressure 154/78 mm Hg Height 5 ft 11 in [...] - Hepatitis A Antibody Total performed at [facility], [address] [place] [address] Store Loss Prevention Manager Nikki Burton MD Hepatitis A IgM Antibody [...] --Unvaccinated: <5.0 Vaccinated: >=12.0 Test Performed by: [place] [address] Statement Distribution Clerk: Kaiden Zhang III, M.D. Hepatitis B Surface Ab, [place] [address] Store Loss Prevention Manager Leatha Burton MD Hepatitis B Surface Antigen December 12, 2008 3:35pm Negative - Hepatitis C Antibody December 12, 2008 3:35pm Positive - Hepatitis C Genotype April 26, 2014 8:21am 1a - Reference Range: Undetected ADDITIONAL INFORMATION This test was performed using the Jenkins RealTime HCV Genotype II assay ([employer] [place], [place]). Test Performed by: [place] [address] Statement Distribution Clerk: Wyatt Christie M.D. Hepatitis C Genotype performed at [address], [place] [address] Store Loss Prevention Manager Leatha Burton MD Hepatitis C Viral RNA December 27, 2012 11:42am [id number] IU/mL - HEP C GENOTYPE [id number] Influenza [...] Has specimen been collected/obtained? Y Urine Specific [place] March 22, 2014 11:43pm 1.015 - Has [...] 26, 2014 10:29am LAB TEST FORM REQUEST [id number] - Hepatitis C RNA (PCR) Method March [...] HCV infection. Hepatitis C RNA performed at [facility], [address] [place] [address] Store Loss Prevention Manager Nikki Burton MD Icterus Index May 13, 2014 6:36pm < 2 0-7 YX-Szg-J-Type Natriuretic Peptide February 19, 2012 1:05am 69 [...] 2008 11:15am Name: JAMIE NAGY Unit #: [id number] : 1965 Sex: M Loc / [facility]: [facility] DOS: 04/07/14 Signed Report #: [id number] DIAGNOSTIC IMAGING REPORT TYPE OF EXAM: US [...] completed 04/24/14 EMERGENCY DEPT VISIT completed 04/24/14 [id number]"INJECTION, HYDROMORPHONE, UP TO 4 MG" completed 04/24/14 [id number]"INJECTION, ORPHENADRINE CITRATE, UP TO 60 MG" completed 04/24/14 GENOTYPE DNA/RNA HEP C completed 04/26/14 Encounters Encounter Location Date/Time Departed Emergency Room [facility] 05/13/14 5:34pm [facility] 04/26/14 8:10am Departed Emergency Room [facility] 04/24/14 3:03am Registered [facility] 04/07/14 9:36am Departed Emergency Room [facility] 03/22/14 11:17pm Recent Diagnosis
--- OUTSIDE RECORDS SUMMARY | 2016-09-29 14:26 | XMS REPORT | Continuity of Care Document ---
Author Author [facility] Organization [facility] Address Unknown Phone Unavailable Care Team Providers Care Laboratory Mechanical Technician Name Role Phone ADAL LOBO MD Primary Care Physician [phone] Insurance Providers Payer Name Policy Number Subscriber Name Relationship Medicare [id number] Jamie Nagy 20 Self [employer] Plan [id number] Jamie Nagy 20 Self Problems Medical Problems [...] abdominal pain Unknown Active Malingering Unknown Active Medications Medication Dose Route Sig [...] Clonazepam 0.5 Tab PO NEEDED 01/11/14 Active [gabapentin] 03/23/14 Active [baclofen] 03/23/14 Active [ativan] 03/23/14 Active Social History Social History Problem Response Recorded Date/Time Smoking Status Former smoker 10/08/2013 9:08pm Chewing Tobacco Status No 10/08/2013 9:08pm Hx Substance Use No 03/22/2014 11:17pm Hx Alcohol Use Y NONE FOR 3 MONTHS 03/22/2014 11:17pm Has the pt used tobacco in the last 12 months Yes 01/11/2014 4:23pm Query Response Start Date Stop Date Smoking Status Current every day smoker Hospital Discharge Instructions No hospital discharge instructions. Plan of Care No plan of care. Functional Status Query Response Date Recorded Physical Hygiene Self March 22, 2014 11:17pm Disabilities None March 22, 2014 11:17pm Devices Used None March 22, 2014 11:17pm Dressing Self March 22, 2014 11:17pm Ambulation Self March 22, 2014 11:17pm Diet Self March 22, 2014 11:17pm Mental Status Alert Oriented March 22, 2014 11:57pm Disabilities None March 22, 2014 11:17pm Devices Used None March 22, 2014 11:17pm Physical Hygiene Self March 22, 2014 11:17pm Dressing Self March 22, 2014 11:17pm Ambulation Self March 22, 2014 11:17pm Diet Self March 22, 2014 11:17pm Allergies, Adverse Reactions, Alerts Allergen Type Severity Reaction Status Last Updated propoxyphene napsylate Allergy Unknown RASH,NECK SWELLING Active 10/22/14 Acetaminophen Adverse Reaction Unknown CANNOT TAKE DUE TO LIVER Active Tramadol Allergy Severe rash, upset stomach Active 03/22/14 Immunizations Name Given Type Hx Influenza Vaccination No Historical Hx Pneumococcal Vaccination No Historical Hx Tetanus, Diptheria, Pertussis SKIN INTACT Historical Hx Influenza Vaccination No Historical Hx Tetanus Diptheria Y THREE YRS AGO Historical Hx Tetanus, Diptheria, Pertussis SKIN INTACT Historical Hx Tetanus Toxoid Vaccination No Historical Vital Signs Acute Vital Signs Vital Response Date/Time Temperature (Fahrenheit) 97.8 deg F (96.8 - 99.1) Temperature (Calculated Celsius) 36.00497 degrees C (36.0 - 37.3) Pulse Rate (adult) 72 bpm (60 - 100) Respiratory Rate 16 breaths/min (10 - 20) O2 Sat by Pulse Oximetry 100 % (90 - 100) Blood Pressure 118/68 mm Hg Height 6 ft 0 in Weight 148 lb Body Mass Index 20.0 kg/m^2 Results Test Source Date Result Interp. [...] - Hepatitis A Antibody Total performed at [facility], [address] [place] [address] Echo Vascular Tech Nikki Burton MD Hepatitis A IgM Antibody [...] --Unvaccinated: <5.0 Vaccinated: >=12.0 Test Performed by: [place] [address] Missile Technician: Kaiden Zhang III, M.D. Hepatitis B Surface Ab, [place] [address] Echo Vascular Tech Leatha Burton MD Hepatitis B Surface Antigen December 12, 2008 3:35pm Negative - Hepatitis C Antibody December 12, 2008 3:35pm Positive - Hepatitis C Genotype December 27, 2012 11:42am 1a - Reference Range: Undetected.Testing was done using the Jenkins HCV Genotype II Assay. For research use only. Test performed by: [place], [place] Hepatitis C Viral RNA December 27, 2012 11:42am [id number] IU/mL - HEP C GENOTYPE [id number] Influenza [...] Has specimen been collected/obtained? Y Urine Specific [place] March 22, 2014 11:43pm 1.015 - Has [...] Report January 28, 2014 5:18pm REFERENCE LAB [id number] - Hepatitis C RNA (PCR) Method March [...] HCV infection. Hepatitis C RNA performed at [facility], [address] [place] [address] Echo Vascular Tech Nikki Burton MD Icterus Index March 22, 2014 11:43pm < 2 0-7 [id number] Natriuretic Peptide February 19, 2012 1:05am 69 [...] 2008 11:15am Name: JAMIE NAGY Unit #: [id number] : 1965 Sex: M Loc / Svc: ED DOS: 01/28/14 Signed Report #: [id number] DIAGNOSTIC IMAGING REPORT TYPE OF EXAM: SHOULDER RIGHT 2 VIEW Dictated By: ANNETTE GALE MD INDICATION: ITS.REASON: fall, pain SHOULDER RIGHT 2 VIEW: IMPRESSION: No fracture or dislocation is identified. No focal osseous lesions are demonstrated. No bony or soft tissue abnormalities are seen. No erosions or inflammatory lesions are seen. . Procedures Procedure Status Date Provider(s) HYDRATION IV INFUSION INIT completed 01/28/14 Encounters Encounter Location Date/Time Departed Emergency Room [facility] 03/22/14 11:17pm Departed Emergency Room [facility] 01/28/14 1:49pm Departed Emergency Room [facility] 01/13/14 10:20pm Recent Diagnosis
--- OUTSIDE RECORDS SUMMARY | 2016-09-29 14:26 | XMS REPORT | Continuity of Care Document ---
Author Author [facility] Organization [facility] Address Unknown Phone Unavailable Support Name Relationship Address Phone RASHAWN MEAD DO Caregiver [address] [place] [address] Unavailable LAN HOBBS DO Caregiver [address] [place] [address] Unavailable SHAY MCFARLAND Next Of Kin Unknown [phone] Insurance Providers Guarantor Jamie Nagy Address [address] [place] [address] Email DENIED/07/02/16 Payer [facility] State Plan Policy Number [id number] Subscriber's Name Jamie Nayg Relationship 18 Self Effective Date 16 Expiration Date 16 Payer Medicare Policy Number [id number] Subscriber's Name Jamie Nagy Relationship 18 Self Advance Directives Directive Response Recorded Date/Time Advanced Directives Type None 07/02/16 11:56am Chief Complaint and Reason for Visit Chief Complaint Suicide Ideation/Attempt Reason for Visit Depression with suicidal ideation Problems Active Problems Medical Problem Onset Date Status Abdominal pain Unknown Acute Abdominal pain Unknown Acute Acute bronchitis Unknown Acute Acute bronchitis Unknown Acute Adverse reaction to drug Unknown Acute Back muscle spasm Unknown Acute Chest pain Unknown Acute Chest wall pain Unknown Acute Chest wall pain Unknown Acute Chronic abdominal pain Unknown Acute Chronic abdominal pain Unknown Acute Costochondritis Unknown Acute Costochondritis Unknown Acute Costochondritis Unknown Acute Cough with hemoptysis Unknown Acute Cough with hemoptysis Unknown Acute Depression with suicidal ideation Unknown Acute Diarrhea Unknown Acute Diarrhea Unknown Acute Fall Unknown Acute Fall Unknown Acute Gastroenteritis Unknown Acute Herniated disc, cervical Unknown Acute Insect bite - wound Unknown Acute Knee contusion Unknown Acute Knee sprain Unknown Acute Knee sprain Unknown Acute Left against medical advice Unknown Acute Left against medical advice Unknown Acute Left rib fracture Unknown Acute Lip laceration Unknown Acute Lumbar radiculopathy Unknown Acute Lumbar strain Unknown Acute Lung nodule < 6cm on CT Unknown Acute Malingering Unknown Acute Malingering Unknown Acute Multiple contusions Unknown Acute Multiple contusions Unknown Acute Nausea Unknown Acute Nausea Unknown Acute Nausea Unknown Acute Neck pain Unknown Acute Rib pain Unknown Acute Spasm of cervical paraspinous muscle Unknown Acute Spasm of cervical paraspinous muscle Unknown Acute Spasm of cervical paraspinous muscle Unknown Acute Spasm of thoracolumbar muscle Unknown Acute Volume depletion Unknown Acute Vomiting Unknown Acute Past Problems Medical Problem Onset Date Acute pain of right shoulder Unknown Hypertension Unknown Neck pain Unknown Scotoma Unknown Shoulder dislocation, recurrent Unknown Spasm of cervical paraspinous muscle Unknown Medications Current Home Medications Medication Dose Units Route Directions Days Qty Instructions Start Date Albuterol Sulfate (Proair Hfa 90 Mcg/Actuation) 8.5 Gm Hfa.aer.ad 1 Puff Inhalation As Needed 02/27/16 Ascorbic Acid (Vitamin C) 500 Mg Tablet.er 500 Mg Oral Daily Ibuprofen 200 Mg Tablet 800 Mg Oral Every 8 Hours as needed for Pain 11/13/15 Past Home Medications Medication Directions Ordered Status Acetaminophen/Hydrocodone Bitart (Iron 5-325 Tablet) 1 Each Tablet, 1-2 Tab Oral Every 6 Hr Prn as needed for Pain 05/24/15 Discontinued Al Hydroxide/Mg Hydroxide (Maalox) 30 Ml Suspension, 02/10/11 Discontinued Aspirin 81 Mg Tablet, 1 Tab Oral Three Times A Day 03/04/09 Discontinued Carisoprodol (Soma) 250 Mg Tablet, 0.5 Tab Oral Every 6 Hours 11/26/14 Discontinued Cyclobenzaprine Hcl 10 Mg Tablet, 10 Mg Oral Three Times A Day as needed for Muscle Spasm 09/16/15 Discontinued Diclofenac Sodium 75 Mg Tablet., 75 Mg Oral Twice A Day as needed for Prn Orders 09/16/15 Discontinued Diclofenac Sodium 75 Mg Tablet., 75 Mg Oral Twice Daily With Meals Discontinued Docusate Sodium (Colace) 100 Mg Capsule, 100 Mg Oral Daily 01/19/11 Discontinued Escitalopram Oxalate (Lexapro) 10 Mg Tablet, 1 Tab Oral Daily 11/07/08 Discontinued Fluticasone/Salmeterol (Advair 250-50 Diskus) 1 Disk W/Dev Inhaler, 1 Puff Oral Inhalation Resp.tx Twice A Day 04/28/15 Discontinued Furosemide 80 Mg Tablet, 1 Tab Oral Daily 05/24/15 Discontinued Hydrochlorothiazide 12.5 Mg Tablet, 1 Tab Oral Daily 11/26/14 Discontinued Hydrocodone Bit/Acetaminophen (Iron 5/325 Tablet) 1 Tab Tablet, 1 Tab Oral Tid Prn 12/27/12 Discontinued Hydrocodone Bit/Acetaminophen (Lortab 5/500 Tablet) 1 Tab Tablet, 1 Tab Oral As Needed 01/19/11 Discontinued Ibuprofen (Motrin) 800 Mg Tablet, 800 Mg Oral As Needed 03/23/12 Discontinued Ibuprofen (Motrin) 800 Mg Tablet, 800 Mg Oral As Needed 06/18/11 Discontinued Ibuprofen 200 Mg Capsule, 800 Mg Oral Three Times A Day 11/07/08 Discontinued Meloxicam (Mobic) 15 Mg Tablet, 15 Mg Oral Daily 02/18/11 Discontinued Naproxen Sodium (Aleve) 220 Mg Tablet, 220 Mg Oral Twice A Day 07/09/11 Discontinued Ondansetron (Zofran Odt) 4 Mg Tab.rapdis, 4 Mg Oral Q6h/0300,0900,1500,2100 for Nausea &/Or Vomiting 05/24/15 Discontinued Otc Allergy Med , 02/10/11 Discontinued Paroxetine Hcl (Paxil) 10 Mg Tablet, 10 Mg Oral Daily 07/29/11 Discontinued Psyllium Seed (Metamucil) 1 Pkt Packet, Oral Daily 01/19/11 Discontinued Tylenol , 11/07/08 Discontinued Social History Social History Problem Response Recorded Date/Time Onset Date Status Chewing Tobacco Status No 10/08/2013 9:08pm Not Applicable Not Applicable Hx Substance Use No 07/02/2016 12:57pm Not Applicable Not Applicable Hx Alcohol Use Y NO ALCOHOL SINCE JUN 2015 07/02/2016 12:57pm Not Applicable Not Applicable Has the pt used tobacco in the last 12 months Yes 01/11/2014 4:23pm Not Applicable Not Applicable Tobacco Usage smoke 01/13/2014 10:45pm Not Applicable Not Applicable Query Response Start Date Stop Date Smoking Status Former smoker Hospital Discharge Instructions No hospital discharge instructions. Plan of Care Discharge Date 07/02/16 2:47pm Disposition 67 TO [place] Condition at Discharge Stable Prescriptions See Medication Section Referrals LAN HOBBS DO Address: [address] [place] [phone] Functional Status No functional status results. Allergies, Adverse Reactions, Alerts Allergen Type Severity Reaction Status Last Updated propoxyphene napsylate Allergy Unknown RASH,NECK SWELLING Active 11/13/15 Acetaminophen Adverse Reaction Unknown CANNOT TAKE DUE TO LIVER Active Tramadol Allergy Severe rash, upset stomach Active 11/13/15 Immunizations Query Response on File Recorded Date/Time Hx Influenza Vaccination No 01/13/15 9:27pm Hx Pneumococcal Vaccination No 01/13/15 9:27pm Hx Tetanus, Diptheria, Pertussis SKIN INTACT 01/13/15 9:27pm Hx Influenza Vaccination No 01/13/15 9:27pm Hx Tetanus Diptheria Y THREE YRS AGO 07/14/15 10:02pm Hx Tetanus, Diptheria, Pertussis SKIN INTACT 01/13/15 9:27pm Hx Tetanus Toxoid Vaccination No 07/14/15 10:02pm DTaP Vaccine History 03/201507/02/16 12:57pm Influenza Vaccine Hx fall 201407/02/16 12:57pm Tdap Vaccine Hx 201211/13/15 5:18pm Vital Signs Acute Vital Signs Vital Response Date/Time Temperature (Fahrenheit) 98.2 deg F (96.8 - 99.1) 07/02/2016 2:47pm Temperature (Calculated Celsius) 36.15188 degrees C (36.0 - 37.3) 07/02/2016 2:47pm Pulse Rate (adult) 98 bpm (60 - 100) 07/02/2016 2:47pm Respiratory Rate 16 breaths/min (10 - 20) 07/02/2016 2:47pm O2 Sat by Pulse Oximetry 98 % (90 - 100) 07/02/2016 2:47pm Blood Pressure 128/78 mm Hg 07/02/2016 2:47pm Height (Feet) 5 feet 07/02/2016 11:48am Height (Inches) 8.00 inches 07/02/2016 11:48am Weight (Kilograms) 69.900 kg 07/02/2016 11:48am Body Mass Index (BMI) 23.0 07/02/2016 11:48am Results Laboratory Results Test Name Result Units Flags Reference Collection Date/Time Result Date/ Time Comments White Blood Count 6.7 T/MM3 4.5-11.0 07/02/2016 12:39pm 07/02/2016 12: 57pm Red Blood Count 4.86 M/MM3 4.50-5.90 07/02/2016 12:39pm 07/02/2016 12: 57pm Hemoglobin 15.3 GM/DL 13.5-17.5 07/02/2016 12:39pm 07/02/2016 12:57pm Hematocrit 44.1 % 41-53 07/02/2016 12:39pm 07/02/2016 12:57pm Mean Corpuscular Volume 90.7 UM3 80-100 07/02/2016 12:39pm 07/02/2016 12:57pm Mean Corpuscular Hemoglobin 31.5 UUG 26-34 07/02/2016 12:39pm 2016 12:57pm Mean Corpuscular Hemoglobin Concent 34.7 GM/DL 31-37 07/02/2016 12:39pm 07/02/2016 12:57pm RDW Standard Deviation 46.4 FL 36.9-50.2 07/02/2016 12:39pm 07/02/2016 12:57pm Platelet Count 270 T/MM3 130-400 07/02/2016 12:39pm 07/02/2016 12:57pm Mean Platelet Volume 9.2 UM3 L 9.4-12.4 07/02/2016 12:39pm 07/02/2016 12 :57pm Neutrophils (%) (Auto) 66.7 % H 33-66 07/02/2016 12:39pm 07/02/2016 12: 57pm Lymphocytes (%) (Auto) 24.8 % 23-45 07/02/2016 12:39pm 07/02/2016 12: 57pm Monocytes (%) (Auto) 7.1 % 0-9.0 07/02/2016 12:39pm 07/02/2016 12:57pm Eosinophils (%) (Auto) 1.2 % 0-4 07/02/2016 12:39pm 07/02/2016 12:57pm Basophils (%) (Auto) 0.1 % 0-2 07/02/2016 12:39pm 07/02/2016 12:57pm Immature Granulocyte % (Auto) 0.1 % 0.0-0.5 07/02/2016 12:39pm 2016 12:57pm Absolute Neutrophils (auto) 4.5 T/MM3 1.8-7.7 07/02/2016 12:39pm 2016 12:57pm Absolute Lymphocytes (auto) 1.7 T/MM3 1-4.8 07/02/2016 12:39pm 2016 12:57pm Absolute Monocytes (auto) 0.5 T/MM3 0-0.8 07/02/2016 12:39pm 2016 12:57pm Absolute Eosinophils (auto) 0.1 T/MM3 0-0.5 07/02/2016 12:39pm 2016 12:57pm Absolute Basophils (auto) 0.0 T/MM3 0-0.2 07/02/2016 12:39pm 2016 12:57pm Absolute Immature Granulocyte (auto 0.01 T/MM3 0.00-0.03 07/02/2016 12: 39pm 07/02/2016 12:57pm Icterus Index < 2 0-7 07/02/2016 12:39pm 07/02/2016 1:09pm Chemistry Specimen Hemolysis < 15 0-25 07/02/2016 12:39pm 07/02/2016 1:09pm 0-25: Specimen Exhibited No Hemolysis. Turbidity < 20 0-20 07/02/2016 12:39pm 07/02/2016 1:09pm Sodium Level 146 MEQ/L H 134-144 07/02/2016 12:39pm 07/02/2016 1:09pm Potassium Level 4.2 MEQ/L 3.6-5 07/02/2016 12:39pm 07/02/2016 1:09pm Chloride Level 106 MEQ/L 98-107 07/02/2016 12:39pm 07/02/2016 1:09pm Carbon Dioxide Level 26 MEQ/L 22-30 07/02/2016 12:39pm 07/02/2016 1: 09pm Anion Gap 14 MEQ/L 5-15 07/02/2016 12:39pm 07/02/2016 1:09pm Blood Urea Nitrogen 20.0 MG/DL 9-20 07/02/2016 12:39pm 07/02/2016 1: 09pm Creatinine 0.8 MG/DL 0.8-1.5 07/02/2016 12:39pm 07/02/2016 1:09pm BUN/Creatinine Ratio 25 RATIO 6-26 07/02/2016 12:39pm 07/02/2016 1: 09pm Glomerular Filtration Rate Calc 103 07/02/2016 12:39pm 07/02/2016 1 :09pm Glucose Level 102 MG/DL 75-110 07/02/2016 12:39pm 07/02/2016 1:09pm Calculated Osmolality 284 MOSM/KG H 261-280 07/02/2016 12:39pm 2016 1:09pm Calcium Level 10.4 MG/DL H 8.4-10.2 07/02/2016 12:39pm 07/02/2016 1: 09pm Total Bilirubin 1.00 MG/DL 0.20-1.30 07/02/2016 12:39pm 07/02/2016 1: 09pm Alkaline Phosphatase 79 U/L 38-126 07/02/2016 12:39pm 07/02/2016 1: 09pm Total Protein 8.6 G/DL H 6.3-8.2 07/02/2016 12:39pm 07/02/2016 1:09pm Albumin 5.1 G/DL H 3.5-5.0 07/02/2016 12:39pm 07/02/2016 1:09pm Globulin 3.5 G/DL 2.4-3.6 07/02/2016 12:39pm 07/02/2016 1:09pm Albumin/Globulin Ratio 1.5 RATIO 1.1-2.2 07/02/2016 12:39pm 07/02/2016 1:09pm Aspartate Amino Transf (AST/SGOT) 27 U/L 17-59 07/02/2016 12:39pm 07/02 1:09pm Alanine Aminotransferase (ALT/SGPT) 28 U/L 21-72 07/02/2016 12:39pm 06/2016 1:09pm Troponin I < 0.012 ng/ml 0-0.12 07/02/2016 12:39pm 07/02/2016 1:18pm Troponin values with a difference of 55% increase from orginal troponin value represent a true biological DELTA value. (%increase Calc=Orginal Troponin value, divided by subsequent Troponin value, multiplied by 100) Acetaminophen Level < 10 UG/ML L 10-30 07/02/2016 12:39pm 07/02/2016 1: 09pm TOXIC <4 HR POST INGESTION: >150 MG/L; TOXIC <12 HR POST INGESTION: >50 MG/L Salicylates Level < 1.0 MG/DL L 2-20 07/02/2016 12:39pm 07/02/2016 1: 09pm Alcohol, Quantitative <10 MG/DL <10 07/02/2016 12:39pm 07/02/2016 1: 09pm Thyroid Stimulating Hormone (TSH) 0.07 MIU/L L 0.47-4.68 07/02/2016 12: 39pm 07/02/2016 2:53pm Urine Collection Type CLEANCATCH-MIDSTREAM 07/02/2016 12:39pm 07/02 12:57pm Urine Color YELLOW YELLOW 07/02/2016 12:39pm 07/02/2016 12:57pm Urine Turbidity CLEAR CLEAR 07/02/2016 12:39pm 07/02/2016 12:57pm Urine Specific [place] 1.015 1.015-1.025 07/02/2016 12:39pm 2016 12:57pm Urine pH 6.0 5.0-8.0 07/02/2016 12:39pm 07/02/2016 12:57pm Urine Leukocyte Esterase NEGATIVE NEGATIVE 07/02/2016 12:39pm 2016 12:57pm Urine Nitrite NEGATIVE NEGATIVE 07/02/2016 12:39pm 07/02/2016 12: 57pm Urine Protein NEGATIVE NEGATIVE 07/02/2016 12:39pm 07/02/2016 12: 57pm Urine Glucose (UA) NEGATIVE NEGATIVE 07/02/2016 12:39pm 07/02/2016 12 :57pm Urine Ketones 3+ A NEGATIVE 07/02/2016 12:39pm 07/02/2016 12:57pm Urine Urobilinogen 0.2 EU/DL NORMAL 07/02/2016 12:39pm 07/02/2016 12: 57pm Urine Bilirubin 1+ A NEGATIVE 07/02/2016 12:39pm 07/02/2016 12:57pm Urine Blood NEGATIVE NEGATIVE 07/02/2016 12:39pm 07/02/2016 12:57pm Urinalysis Comment MICROSCOPIC NOT IND. 07/02/2016 12:39pm 2016 12:57pm Name: JAMIE NAGY Unit #: [id number] : 1965 Sex: M Admit Date: Loc / Svc: ED Discharge Date: DIAGNOSTIC IMAGING REPORT Report #: [id number] [facility] ANNA Hyde Indication: ITS.REASON: Headache PROCEDURE: CT HEAD W/O CONTRAST: Encounter: Initial Comparison: March 23, 2014 Technique: Axial CT images through the head were performed without contrast. Iterative Reconstruction dose reducing technique was utilized. FINDINGS: The ventricles are of normal size, shape, and configuration for the patient's age. There is no evidence of acute intracranial hemorrhage, midline displacement, or mass effect. The CT attenuation of the brain parenchyma is normal within the cerebellum, brain stem, and cerebral hemispheres. The tympanic cavities and mastoid air cells are free of appreciable disease. There are no definite fractures of the skull base, calvarium, or visualized portion of the midface. Ethmoid sinus disease has improved from the prior study with moderate mucosal thickening present currently. IMPRESSION: No CT evidence of acute intracranial abnormality. . Procedures No known history of procedures. Encounters Encounter Location Arrival/Admit Date Discharge/Depart Date Attending Provider Registered Emergency Room [facility] 07/02/16 11:40am RASHAWN MEAD DO Recent Diagnosis
[2016-09-29] MEDS ORDERED: HYDR-4246 PO (14:32)
[2016-09-29] MEDS ORDERED: [UNRECOGNIZED DRUG - CODE] PO (14:32)
[2016-09-29] MEDS ORDERED: CLON0.5T4 PO (14:40)
[2016-09-29] MEDS ORDERED: HYDR12.54 PO (14:40)
[2016-09-29 14:44] VITALS: BP 170/87; PULSE 73; RESP 16; TEMP 98.3; O2SAT 97
--- NOTE | 2016-09-29 14:44 | NUR ---
DISMISSAL DISMISSAL INSTRUCTIONS WITH RX FOR NORCO 5MG AND VALCYCLOVIR 1000MG. NO FURTHER QUESTIONS AT THIS TIME. PT LEFT DEPARTMENT [facility]
--- OUTSIDE RECORDS SUMMARY | 2016-09-29 16:46 | XMS REPORT | Continuity of Care Document ---
Author Author [facility] Organization [facility] Address Unknown Phone Unavailable Care Team Providers Care Brand Ambassador Promotional Model Name Role Phone Emma DENG MD Primary Care Physician [phone] Insurance Providers Payer Name Policy Number Subscriber Name Relationship Medicare [id number] Jamie Nagy 20 Self [employer] Plan [id number] Jamie Nagy 20 Self Problems Medical Problems [...] F (96.8 - 99.1) Temperature (Calculated Celsius) 35.05206 degrees C (36.0 - 37.3) Pulse Rate [...] - Hepatitis A Antibody Total performed at [facility], [address] [place] [address] Counter Checker Nikki Burton MD Hepatitis A IgM Antibody [...] --Unvaccinated: <5.0 Vaccinated: >=12.0 Test Performed by: [place] [address] Basic Sciences Dean: Kaiden Zhang III, M.D. Hepatitis B Surface Ab, Quant performed at [facility], [address] [place] [address] Counter Checker Leatha Burton MD Hepatitis B Surface Antigen December 12, 2008 3:35pm Negative - Hepatitis C Antibody December 12, 2008 3:35pm Positive - Hepatitis C Genotype December 27, 2012 11:42am 1a - Reference Range: Undetected.Testing was done using the Jenkins HCV Genotype II Assay. For research use only. Test performed by: [place], [place] Hepatitis C Viral RNA December 27, 2012 11:42am [id number] IU/mL - HEP C GENOTYPE [id number] Influenza [...] Has specimen been collected/obtained? Y Urine Specific [place] June 18, 2013 2:55am 1.010 L - [...] Report January 28, 2014 5:18pm REFERENCE LAB [id number] - Hepatitis C RNA (PCR) Method March [...] HCV infection. Hepatitis C RNA performed at [facility] Reference [facility], [facility] [place] [address] Counter Checker Nikki Burton MD Icterus Index January 28, 2014 1:35pm < 2 0-7 [id number]-Hsu-[id number]-Type Natriuretic Peptide February 19, 2012 1:05am 69 [...] 2008 11:15am Name: JAMIE NAGY Unit #: [id number] : 1965 Sex: M Loc / Svc: ED DOS: 01/28/14 Signed Report #: [id number] DIAGNOSTIC IMAGING REPORT TYPE OF EXAM: SHOULDER [...] Encounters Encounter Location Date/Time Departed Emergency Room [facility] 01/28/14 1:49pm Departed Emergency Room [facility] 01/13/14 10:20pm Recent Diagnosis
--- OUTSIDE RECORDS SUMMARY | 2016-09-29 16:47 | XMS REPORT | Continuity of Care Document ---
Author Author [facility] Organization [facility] Address Unknown Phone Unavailable Support Name Relationship Address Phone ANN BURNETT MD Caregiver [address] [place] [address] SKIP GARCIA MD Caregiver [address] [place] [address] [employer]IV [employer] Next Of Kin Unknown [phone] Insurance Providers Payer Name Policy Number Subscriber Name Relationship Medicare [id number] Jamie Nagy 20 Self [employer] State Plan [id number] Jamie Nagy 20 Self Problems Medical Problems [...] F (96.8 - 99.1) Temperature (Calculated Celsius) 36.97667 degrees C (36.0 - 37.3) Temperature Source [...] - Hepatitis A Antibody Total performed at [facility], [address] [place] [address] Financial Officer Nikki Burton MD Hepatitis A IgM Antibody [...] --Unvaccinated: <5.0 Vaccinated: >=12.0 Test Performed by: [facility] [place] [address] Umbrella Tipper Machine: Kaiden Zhang III, M.D. Hepatitis B Surface Ab, Quant performed at [facility], [address] [place] [address] Financial Officer Leatha Burton MD Hepatitis B Surface Antigen December 12, 2008 3:35pm Negative - Hepatitis C Antibody December 12, 2008 3:35pm Positive - Hepatitis C Genotype December 27, 2012 11:42am 1a - Reference Range: Undetected.Testing was done using the Jenkins HCV Genotype II Assay. For research use only. Test performed by: [place], [place] Hepatitis C Viral RNA December 27, 2012 11:42am [id number] IU/mL - HEP C GENOTYPE Z0933 Influenza [...] Has specimen been collected/obtained? Y Urine Specific [place] June 18, 2013 2:55am 1.010 L - [...] Report June 24, 2013 3:50pm REFERENCE LAB [id number] - Hepatitis C RNA (PCR) Method March [...] HCV infection. Hepatitis C RNA performed at [facility], [address] [place] [address] Financial Officer Nikki Burton MD Urine Acetaminophen Screen June 18, 2013 2:55am Negative NG/ML - DF-Zxb-V-Type Natriuretic Peptide February 19, 2012 1:05am 69 [...]
--- OUTSIDE RECORDS SUMMARY | 2016-09-29 16:48 | XMS REPORT | Continuity of Care Document ---
Author Author [facility] Organization [facility] Address Unknown Phone Unavailable Care Team Providers Care Printed Circuit Board Assembler Name Role Phone LAN HOBBS DO Primary Care Physician [phone] Insurance Providers Payer Name Policy Number Subscriber Name Relationship Medicare [id number] Jamie Nagy 20 Self [facility] [employer] Plan [id number] Jamie Nagy 20 Self Advance Directives Directive [...] F (96.8 - 99.1) Temperature (Calculated Celsius) 36.84236 degrees C (36.0 - 37.3) Pulse Rate [...] - Hepatitis A Antibody Total performed at [facility], [address] [facility] [address] Rod Buster Nikki Burton MD Hepatitis A IgM Antibody [...] --Unvaccinated: <5.0 Vaccinated: >=12.0 Test Performed by: [place] [address] Dull Coat Mill Operator: Kaiden Zhang III, M.D. Hepatitis B Surface Ab, [place] [address] Rod Buster Leatha Burton MD Hepatitis B Surface Antigen December 12, 2008 3:35pm Negative - Hepatitis C Antibody December 12, 2008 3:35pm Positive - Hepatitis C Genotype April 26, 2014 8:21am 1a - Reference Range: Undetected ADDITIONAL INFORMATION This test was performed using the Jenkins RealTime HCV Genotype II assay ([employer] [place], [place]). Test Performed by: [place] [address] Dull Coat Mill Operator: Wyatt Christie M.D. Hepatitis [place] [address] Rod Buster Leatha Burton MD Hepatitis C RNA (PCR) Method March 29, 2008 5:37pm Sent out - Hepatitis C RNA (PCR) log10 December 27, 2012 11:42am 6.6 - This test is for monitoring of HCV positive patients only andshould not be used as a screening test for HCV infection. Hepatitis C RNA performed at [facility] Reference Lab, [address] [place] [address] Rod Buster Nikki Burton MD Hepatitis C RNA Ultraquantitative February 23, 2009 4:20pm Sent out - Hepatitis C Viral RNA December 27, 2012 11:42am [id number] IU/mL - HEP C GENOTYPE Z0933 Hepatitis [...] 26, 2014 10:29am LAB TEST FORM REQUEST [id number] - Lipase March 22, 2014 11:43pm 135 [...] 22, 2014 6:14pm 6.8 % N 0-9.0 OV-Udl-Q-Type Natriuretic Peptide February 19, 2012 1:05am 69 [...] Has specimen been collected/obtained? Y Urine Specific [place] March 22, 2014 11:43pm 1.015 - Has [...] 2008 9:54pm Name: JAMIE NAGY Unit #: [id number] : [id number] Sex: M Loc / Svc: ED DOS: 06/22/14 Signed Report #: [id number] DIAGNOSTIC IMAGING REPORT TYPE OF EXAM: KNEE [...] completed 06/22/14 EMERGENCY DEPT VISIT completed 08/01/14 [id number] ITEM OR SERVICE completed 08/01/14 Encounters Encounter Location Date/Time Departed Emergency Room [facility] 08/22/14 5:38pm Departed Emergency Room [facility] 08/01/14 6:06am Departed Emergency Room [facility] 06/22/14 4:33am Recent Diagnosis
--- OUTSIDE RECORDS SUMMARY | 2016-09-29 16:48 | XMS REPORT | Continuity of Care Document ---
Author Author [facility] Organization [facility] Address Unknown Phone Unavailable Support Name Relationship Address Phone Emma DENG MD Caregiver [address] [place] [address] SKIP GARCIA MD Caregiver [address] [place], [place] [id number] YONIS RUIZ MD Caregiver [address] [place] [address] [place] [address] TORY NAM Next Of Kin Unknown [phone] Insurance Providers Payer Name Policy Number Subscriber Name Relationship Medicare [id number] Jamie Nagy 20 Self [employer] Plan [id number] Jamie Nagy 20 Self Problems Medical Problems [...] F (96.8 - 99.1) Temperature (Calculated Celsius) 36.19587 degrees C (36.0 - 37.3) Pulse Rate [...] - Hepatitis A Antibody Total performed at [facility], [address] [place] [address] Sales And Leasing Agent Nikki Burton MD Hepatitis A IgM Antibody [...] --Unvaccinated: <5.0 Vaccinated: >=12.0 Test Performed by: [place] [address] Forge Tender: Kaiden Zhang III, M.D. Hepatitis B Surface Ab, [place] [address] Sales And Leasing Agent Leatha Burton MD Hepatitis B Surface Antigen December 12, 2008 3:35pm Negative - Hepatitis C Antibody December 12, 2008 3:35pm Positive - Hepatitis C Genotype December 27, 2012 11:42am 1a - Reference Range: Undetected.Testing was done using the Jenkins HCV Genotype II Assay. For research use only. Test performed by: [place], [place] Hepatitis C Viral RNA December 27, 2012 11:42am [id number] IU/mL - HEP C GENOTYPE Z0933 Influenza [...] Has specimen been collected/obtained? Y Urine Specific [place] June 18, 2013 2:55am 1.010 L - [...] Report June 24, 2013 3:50pm REFERENCE LAB [id number] - Hepatitis C RNA (PCR) Method March [...] HCV infection. Hepatitis C RNA performed at [facility] Reference Lab, [address] [place] [address] Sales And Leasing Agent Nikki Burton MD Urine Acetaminophen Screen June 18, 2013 2:55am Negative NG/ML - UT-Flh-D-Type Natriuretic Peptide February 19, 2012 1:05am 69 [...] Encounters Encounter Location Date/Time Registered Emergency Room [facility] 01/13/14 10:20pm Recent Diagnosis
--- OUTSIDE RECORDS SUMMARY | 2016-09-29 16:48 | XMS REPORT | Continuity of Care Document ---
Author Author [facility] Organization [facility] Address Unknown Phone Unavailable Care Team Providers Care Airport Planner Name Role Phone ADAL LOOB MD Primary Care Physician [phone] Insurance Providers Payer Name Policy Number Subscriber Name Relationship Medicare [id number] Renetta Nagy 20 Self [employer] [facility] Plan [id number] Renetta Nagy 20 Self Problems Medical Problems [...] F (96.8 - 99.1) Temperature (Calculated Celsius) 36.59429 degrees C (36.0 - 37.3) Pulse Rate [...] - Hepatitis A Antibody Total performed at [facility], [address] [place] [facility] [place] [address] Head Of Drama Nikki Burton MD Hepatitis A IgM Antibody [...] --Unvaccinated: <5.0 Vaccinated: >=12.0 Test Performed by: [facility] [place] [address] Pasta Press Operator: Kaiden Zhang III, M.D. Hepatitis B Surface Ab, [place] [address] Head Of Drama Leatha Burton MD Hepatitis B Surface Antigen December 12, 2008 3:35pm Negative - Hepatitis C Antibody December 12, 2008 3:35pm Positive - Hepatitis C Genotype April 26, 2014 8:21am 1a - Reference Range: Undetected ADDITIONAL INFORMATION This test was performed using the Jenkins RealTime HCV Genotype II assay ([employer] [place], [place]). Test Performed by: [facility] [place] [address] Pasta Press Operator: Wyatt Christie M.D. Hepatitis [place] [address] Head Of Drama Leatha Burton MD Hepatitis C Viral RNA December 27, 2012 11:42am [id number] IU/mL - HEP C GENOTYPE Z0933 Influenza [...] Has specimen been collected/obtained? Y Urine Specific [place] March 22, 2014 11:43pm 1.015 - Has [...] 26, 2014 10:29am LAB TEST FORM REQUEST [id number] - Hepatitis C RNA (PCR) Method March [...] HCV infection. Hepatitis C RNA performed at [facility] Reference Lab, [address] [place] [address] Head Of Drama Nikki Burton MD Icterus Index March 22, 2014 11:43pm < 2 0-7 CN-Ngo-H-Type Natriuretic Peptide February 19, 2012 1:05am 69 [...] 2008 11:15am Name: RENETTA NAGY Unit #: [id number] : 1965 Sex: M Loc / Svc: [facility] DOS: 04/07/14 Signed Report #: [id number] DIAGNOSTIC IMAGING REPORT TYPE OF EXAM: US [...] completed 04/24/14 EMERGENCY DEPT VISIT completed 04/24/14 [id number]"INJECTION, HYDROMORPHONE, UP TO 4 MG" completed 04/24/14 [id number]"INJECTION, ORPHENADRINE CITRATE, UP TO 60 MG" completed 04/24/14 Encounters Encounter Location Date/Time Registered [facility] 04/26/14 8:10am Registered [facility] 04/25/14 9:55am Departed Emergency Room [facility] 04/24/14 3:03am Registered [facility] 04/07/14 9:36am Departed Emergency Room [facility] 03/22/14 11:17pm
--- OUTSIDE RECORDS SUMMARY | 2016-09-29 16:48 | XMS REPORT | Continuity of Care Document ---
Author Author [facility] Organization [facility] Address Unknown Phone Unavailable Care Team Providers Care Mental Health Worker Name Role Phone SKIP GARCIA MD PP Unavailable Insurance Providers Payer Name Policy Number Subscriber Name Relationship [facility] Plan [id number] Renetta Balderrama 20 Self Medicare [id number] Renetta Balderrama 20 Self Problems No Known [...] 4 Tab PO Q8H PRN Hydrocodone Bit/Acetaminophen ([place] 5/325 Tablet) 1 Tab PO TID PRN [...] C Viral RNA December 27, 2012 11:42am [id number] IU/mL - Lipase December 30, 2012 8:55pm [...] 2:50pm None seen /HPF - Urine Specific [place] December 17, 2012 3:00am 1.010 L - [...] July 29, 2011 5:00am Negative NG/ML - FV-Lrv-R-Type Natriuretic Peptide February 19, 2012 1:05am 69 PG/ML N 0- 175 Urine Microscopic Not Indicated July 29, 2011 5:00am Not indicated - Procedures Procedure Code Date ALCOHOL DETOXIFICATION 94.62 11/02/07 UPPER GI ENDOSCOPY BIOPSY 50994 11/07/08 THER/PROPH/DIAG INJ IV PUSH 13792 12/27/10 THER/PROPH/DIAG INJ IV PUSH 63399 02/10/11 TX/PRO/DX INJ NEW DRUG ADDON 56249 02/10/11 HYDRATE IV INFUSION ADD-ON 87987 02/10/11 THER/PROPH/DIAG INJ IV PUSH 69381 02/18/11 TX/PRO/DX INJ NEW DRUG ADDON 95512 02/18/11 HYDRATE IV INFUSION ADD-ON 06533 02/18/11 THER/PROPH/DIAG INJ IV PUSH 84773 03/27/11 HYDRATE IV INFUSION ADD-ON 61347 03/27/11 THER/PROPH/DIAG INJ IV PUSH 13837 05/18/11 TX/PRO/DX INJ NEW DRUG ADDON 83575 05/18/11 HYDRATE IV INFUSION ADD-ON 74634 05/18/11 THER/PROPH/DIAG INJ IV PUSH 58649 07/08/11 HYDRATE IV INFUSION ADD-ON 97587 07/08/11 HYDRATE IV INFUSION ADD-ON 51021 07/08/11 HYDRATION IV INFUSION INIT 11906 07/29/11 THER/PROPH/DIAG INJ IV PUSH 45631 12/29/11 THER/PROPH/DIAG INJ IV PUSH 17564 12/30/12 TX/PRO/DX INJ NEW DRUG ADDON 32733 12/30/12 HYDRATE IV INFUSION ADD-ON 65361 12/30/12 Blood Culture 03/27/11 Gram Stain 01/27/08 Helicobacter pylori Rapid Urease 11/07/08 Encounters Encounter Location Date/Time Departed Emergency Room [facility] 12/30/12 7:43pm Discharged Inpatient [facility] 12/17/12 3:19am Registered Emergency Room [facility] 0:00am
--- OUTSIDE RECORDS SUMMARY | 2016-09-29 16:49 | XMS REPORT | Continuity of Care Document ---
Author Author [facility] Organization [facility] Address Unknown Phone Unavailable Care Team Providers Care Marketing/Sales Person Name Role Phone SKIP GARCIA MD PP Unavailable Insurance Providers Payer Name Policy Number Subscriber Name Relationship [facility] Plan [id number] Renetta Balderrama 20 Self Medicare [id number] Renetta Balderrama 20 Self Problems No Known [...] 4 Tab PO Q8H PRN Hydrocodone Bit/Acetaminophen ([place] 5/325 Tablet) 1 Tab PO TID PRN [...] C Viral RNA December 27, 2012 11:42am 5679874 IU/mL - Lipase December 30, 2012 8:55pm [...] 2:50pm None seen /HPF - Urine Specific [place] December 17, 2012 3:00am 1.010 L - [...] July 29, 2011 5:00am Negative NG/ML - ND-Byt-V-Type Natriuretic Peptide February 19, 2012 1:05am 67 PG/ML N 0- 175 Urine Microscopic Not Indicated July 29, 2011 5:00am Not indicated - Procedures Procedure Code Date ALCOHOL DETOXIFICATION 94.62 11/02/07 UPPER GI ENDOSCOPY BIOPSY 21652 11/07/08 THER/PROPH/DIAG INJ IV PUSH 33528 12/27/10 THER/PROPH/DIAG INJ IV PUSH 14979 02/10/11 TX/PRO/DX INJ NEW DRUG ADDON 47934 02/10/11 HYDRATE IV INFUSION ADD-ON 69655 02/10/11 THER/PROPH/DIAG INJ IV PUSH 22252 02/18/11 TX/PRO/DX INJ NEW DRUG ADDON 74713 02/18/11 HYDRATE IV INFUSION ADD-ON 47801 02/18/11 THER/PROPH/DIAG INJ IV PUSH 52192 03/27/11 HYDRATE IV INFUSION ADD-ON 83579 03/27/11 THER/PROPH/DIAG INJ IV PUSH 61542 05/18/11 TX/PRO/DX INJ NEW DRUG ADDON 70077 05/18/11 HYDRATE IV INFUSION ADD-ON 24614 05/18/11 THER/PROPH/DIAG INJ IV PUSH 67354 07/08/11 HYDRATE IV INFUSION ADD-ON 17064 07/08/11 HYDRATE IV INFUSION ADD-ON 91047 07/08/11 HYDRATION IV INFUSION INIT 19500 07/29/11 THER/PROPH/DIAG INJ IV PUSH 58003 12/29/11 THER/PROPH/DIAG INJ IV PUSH 21991 12/30/12 TX/PRO/DX INJ NEW DRUG ADDON 06625 12/30/12 HYDRATE IV INFUSION ADD-ON 23027 12/30/12 Blood Culture 03/27/11 Gram Stain 01/27/08 Helicobacter pylori Rapid Urease 11/07/08 Encounters Encounter Location Date/Time Departed Emergency Room [facility] 12/30/12 7:43pm Discharged Inpatient [facility] 12/17/12 3:19am Registered Emergency Room [facility] 0:00am
--- OUTSIDE RECORDS SUMMARY | 2016-09-29 16:49 | XMS REPORT | Continuity of Care Document ---
Author Author [facility] Organization [facility] Address Unknown Phone Unavailable Support Name Relationship Address Phone ANN BURNETT MD Caregiver [address] [place] [phone] Emma DENG MD Caregiver [address] [place], [place] [phone] SKIP GARCIA MD Caregiver [address] [place] [phone] TORY NAM Next Of Kin Unknown [phone] Insurance Providers Payer Name Policy Number Subscriber Name Relationship Medicare [id number] Jamie Nagy 20 Self [employer] Plan [id number] Jamie Nagy 20 Self Problems Medical Problems [...] F (96.8 - 99.1) Temperature (Calculated Celsius) 36.30751 degrees C (36.0 - 37.3) Temperature Source [...] Hepatitis A Antibody Total performed at [facility], [address] [place] [address] Sunday School Missionary Nikki Burton MD Hepatitis A IgM Antibody [...] --Unvaccinated: <5.0 Vaccinated: >=12.0 Test Performed by: [address] [address] Dry Room Attendant: Kaiden Zhang III, M.D. Hepatitis B Surface Ab, [place] [address] Sunday School Missionary Leatha Burton MD Hepatitis B Surface Antigen December 12, 2008 3:35pm Negative - Hepatitis C Antibody December 12, 2008 3:35pm Positive - Hepatitis C Genotype December 27, 2012 11:42am 1a - Reference Range: Undetected.Testing was done using the [employer] HCV Genotype II Assay. For research use only. Test performed by: [place], [place] Hepatitis C Viral RNA December 27, 2012 11:42am [id number] IU/mL - HEP C GENOTYPE Z0933 Influenza [...] Has specimen been collected/obtained? Y Urine Specific [place] June 18, 2013 2:55am 1.010 L - [...] Report June 24, 2013 3:50pm REFERENCE LAB [id number] - Hepatitis C RNA (PCR) Method March [...] HCV infection. Hepatitis C RNA performed at [facility] Reference Lab, [address] [place] [address] Sunday [employer] Missionary Nikki Burton MD Urine Acetaminophen Screen June 18, 2013 2:55am Negative NG/ML - ES-Hsn-K-Type Natriuretic Peptide February 19, 2012 1:05am 69 [...] Encounters Encounter Location Date/Time Departed Emergency Room [facility] 01/13/14 10:20pm
--- OUTSIDE RECORDS SUMMARY | 2016-09-29 16:50 | XMS REPORT | Continuity of Care Document ---
Author Author [facility] Organization [facility] Address Unknown Phone Unavailable Care Team Providers Care Structural Mill Supervisor Name Role Phone ADAL LOBO MD Primary Care Physician [phone] Insurance Providers Payer Name Policy Number Subscriber Name Relationship Medicare [id number] Jamie Nagy 20 Self [employer] [place] [employer] Plan [id number] Jamie Nagy 20 Self Problems Medical Problems [...] F (96.8 - 99.1) Temperature (Calculated Celsius) 36.87508 degrees C (36.0 - 37.3) Pulse Rate [...] - Hepatitis A Antibody Total performed at [facility], [address] [place] [address] Confectionery Maker Nikki Burton MD Hepatitis A IgM Antibody [...] --Unvaccinated: <5.0 Vaccinated: >=12.0 Test Performed by: [place] [address] Hostage Negotiator: Kaiden Zhang III, M.D. Hepatitis B Surface Ab, [place] [address] Confectionery Maker Leatha Burton MD Hepatitis B Surface Antigen December 12, 2008 3:35pm Negative - Hepatitis C Antibody December 12, 2008 3:35pm Positive - Hepatitis C Genotype April 26, 2014 8:21am 1a - Reference Range: Undetected ADDITIONAL INFORMATION This test was performed using the Jenkins RealTime HCV Genotype II assay ([employer] [place], [place]). Test Performed by: [place] [address] Hostage Negotiator: Wyatt Christie M.D. Hepatitis C Genotype performed at [facility], [address] [place] [address] Confectionery Maker Leatha Burton MD Hepatitis C Viral RNA December 27, 2012 11:42am 3228452 IU/mL - HEP C GENOTYPE Z0933 Influenza [...] Has specimen been collected/obtained? Y Urine Specific [place] March 22, 2014 11:43pm 1.015 - Has [...] 26, 2014 10:29am LAB TEST FORM REQUEST [id number] - Hepatitis C RNA (PCR) Method March [...] HCV infection. Hepatitis C RNA performed at [facility] Reference Lab, [address] [place] [address] Confectionery Maker Nikki Burton MD Icterus Index May 13, 2014 6:36pm < 2 0-7 TD-Mrq-F-Type Natriuretic Peptide February 19, 2012 1:05am 69 [...] 2008 11:15am Name: JAMIE NAGY Unit #: [id number] : 1965 Sex: M Loc / [facility]: ED DOS: 05/13/14 Signed Report #: [id number] DIAGNOSTIC IMAGING REPORT TYPE OF EXAM: CHEST, [...] completed 04/24/14 EMERGENCY DEPT VISIT completed 04/24/14 [id number]"INJECTION, HYDROMORPHONE, UP TO 4 MG" completed 04/24/14 [id number]"INJECTION, ORPHENADRINE CITRATE, UP TO 60 MG" completed 04/24/14 GENOTYPE DNA/RNA HEP C completed 04/26/14 Encounters Encounter Location Date/Time Departed Emergency Room [facility] 05/15/14 1:24am Departed Emergency Room [facility] 05/13/14 5:34pm Registered [facility] 04/26/14 8:10am Departed Emergency Room [facility] 04/24/14 3:03am Registered [facility] 04/07/14 9:36am Departed Emergency Room [facility] 03/22/14 11:17pm Recent Diagnosis
--- OUTSIDE RECORDS SUMMARY | 2016-09-29 16:50 | XMS REPORT | Continuity of Care Document ---
Author Author [facility] Organization [facility] Address Unknown Phone Unavailable Care Team Providers Care Data Processing Systems Project Planner Name Role Phone SKIP GARCIA MD PP Unavailable Insurance Providers Payer Name Policy Number Subscriber Name Relationship [facility] Plan [id number] Renetta Balderrama 20 Self Medicare [id number] Renetta Balderrama 20 Self Problems No Known [...] 4 Tab PO Q8H PRN Hydrocodone Bit/Acetaminophen ([place] 5/325 Tablet) 1 Tab PO TID PRN [...] C Viral RNA December 27, 2012 11:42am 6204532 IU/mL - Lipase December 30, 2012 8:55pm [...] 2:50pm None seen /HPF - Urine Specific [place] December 17, 2012 3:00am 1.010 L - [...] July 29, 2011 5:00am Negative NG/ML - XC-Zmm-Q-Type Natriuretic Peptide February 19, 2012 1:05am 69 PG/ML N 0- 175 Urine Microscopic Not Indicated July 29, 2011 5:00am Not indicated - Procedures Procedure Code Date ALCOHOL DETOXIFICATION 94.62 11/02/07 UPPER GI ENDOSCOPY BIOPSY 61570 11/07/08 THER/PROPH/DIAG INJ IV PUSH 71031 12/27/10 THER/PROPH/DI[place] INJ IV PUSH 30073 02/10/11 TX/PRO/DX INJ NEW DRUG ADDON 78912 02/10/11 HYDRATE IV INFUSION ADD-ON 83604 02/10/11 THER/PROPH/DIAG INJ IV PUSH 14950 02/18/11 TX/PRO/DX INJ NEW DRUG ADDON 89138 02/18/11 HYDRATE IV INFUSION ADD-ON 40926 02/18/11 THER/PROPH/DIAG INJ IV PUSH 57614 03/27/11 HYDRATE IV INFUSION ADD-ON 16347 03/27/11 THER/PROPH/[place]J IV PUSH 92020 05/18/11 TX/PRO/DX INJ NEW DRUG ADDON 89360 05/18/11 HYDRATE IV INFUSION ADD-ON 70337 05/18/11 THER/PROPH/DIAG INJ IV PUSH 11280 07/08/11 HYDRATE IV INFUSION ADD-ON 71041 07/08/11 HYDRATE IV INFUSION ADD-ON 85259 07/08/11 HYDRATION IV INFUSION INIT 22400 07/29/11 THER/PROPH/DIAG INJ IV PUSH 45477 12/29/11 THER/PROPH/DIAG INJ IV PUSH 41390 12/30/12 TX/PRO/DX INJ NEW DRUG ADDON 91480 12/30/12 HYDRATE IV INFUSION ADD-ON 17698 12/30/12 Blood Culture 03/27/11 Gram Stain 01/27/08 Helicobacter pylori Rapid Urease 11/07/08 Encounters Encounter Location Date/Time Departed Emergency Room [facility] 12/30/12 7:43pm Discharged Inpatient [facility] 12/17/12 3:19am Registered Emergency Room [facility] 0:00am
--- OUTSIDE RECORDS SUMMARY | 2016-09-29 16:50 | XMS REPORT | Continuity of Care Document ---
Author Author [facility] Organization [facility] Address Unknown Phone Unavailable Care Team Providers Care Manager Floral Name Role Phone SKIP GARCIA MD PP Unavailable Insurance Providers Payer Name Policy Number Subscriber Name Relationship [facility] Plan [id number] Renetta Balderrama 20 Self Medicare [id number] Renetta Balderrama 20 Self Problems No Known [...] 4 Tab PO Q8H PRN Hydrocodone Bit/Acetaminophen ([place] 5/325 Tablet) 1 Tab PO TID PRN [...] C Viral RNA December 27, 2012 11:42am 1351065 IU/mL - Lipase December 30, 2012 8:55pm [...] 2:50pm None seen /HPF - Urine Specific [place] December 17, 2012 3:00am 1.010 L - [...] July 29, 2011 5:00am Negative NG/ML - RU-Uqy-O-Type Natriuretic Peptide February 19, 2012 1:05am 69 PG/ML N 0- 175 Urine Microscopic Not Indicated July 29, 2011 5:00am Not indicated - Procedures Procedure Code Date ALCOHOL DETOXIFICATION 94.62 11/02/07 UPPER GI ENDOSCOPY BIOPSY 03434 11/07/08 THER/PROPH/DIAG INJ IV PUSH 22232 12/27/10 THER/PROPH/[place]J [place] PUSH 89109 02/10/11 TX/PRO/DX INJ NEW DRUG ADDON 53646 02/10/11 HYDRATE IV INFUSION ADD-ON 92131 02/10/11 THER/PROPH/DIAG INJ IV PUSH 34728 02/18/11 TX/PRO/DX INJ NEW DRUG ADDON 28095 02/18/11 HYDRATE IV INFUSION ADD-ON 99120 02/18/11 THER/PROPH/DIAG INJ IV PUSH 14257 03/27/11 HYDRATE IV INFUSION ADD-ON 63762 03/27/11 THER/PROPH/DIAG INJ IV PUSH 86211 05/18/11 TX/PRO/DX INJ NEW DRUG ADDON 39689 05/18/11 HYDRATE IV INFUSION ADD-ON 65565 05/18/11 THER/PROPH/DIAG INJ IV PUSH 49694 07/08/11 HYDRATE IV INFUSION ADD-ON 77044 07/08/11 HYDRATE IV INFUSION ADD-ON 38161 07/08/11 HYDRATION IV INFUSION INIT 52320 07/29/11 THER/PROPH/DIAG INJ IV PUSH 75787 12/29/11 THER/PROPH/DIAG INJ IV PUSH 33309 12/30/12 TX/PRO/DX INJ NEW DRUG ADDON 15758 12/30/12 HYDRATE IV INFUSION ADD-ON 33388 12/30/12 Blood Culture 03/27/11 Gram Stain 01/27/08 Helicobacter pylori Rapid Urease 11/07/08 Encounters Encounter Location Date/Time Departed Emergency Room [facility] 12/30/12 7:43pm Discharged Inpatient [facility] 12/17/12 3:19am Registered Emergency Room [facility] 0:00am
--- OUTSIDE RECORDS SUMMARY | 2016-09-29 16:50 | XMS REPORT | Continuity of Care Document ---
Author Author [facility] Organization [facility] Address Unknown Phone Unavailable Allergies [...] Status Pt. Type Provider Facility Loc./Unit Complaint [id number] 05/27/2015 17:44:00 2014 20:32:00 DIS Emergency Rocky Aly DO [facility] W.MYRTLE [id number] 01/29/2014 04:22:00 2013 07:32:00 DIS Emergency Morgan Cheung DO [facility] W.EDS
--- OUTSIDE RECORDS SUMMARY | 2016-09-29 16:51 | XMS REPORT | Continuity of Care Document ---
Author Author [facility] Organization [facility] Address Unknown Phone Unavailable Care Team Providers Care Head Mva Reactor Operator Name Role Phone Emma DENG MD Primary Care Physician [phone] Insurance Providers Payer Name Policy Number Subscriber Name Relationship Medicare [id number] Jamie Nagy 20 Self [facility] [place] [employer] Plan [id number] Jamie Nagy 20 Self Advance Directives Directive [...] F (96.8 - 99.1) Temperature (Calculated Celsius) 36.50349 degrees C (36.0 - 37.3) Pulse Rate [...] - Hepatitis A Antibody Total performed at [facility], [address] [place] [address] Gourmet Coffee Attendant Nikki Burton MD Hepatitis A IgM Antibody [...] --Unvaccinated: <5.0 Vaccinated: >=12.0 Test Performed by: [place] [address] Barrel Washer Machine: Kaiden Zhang III, M.D. Hepatitis B Surface Ab, [place] [address] Gourmet Coffee Attendant Leatha Burton MD Hepatitis B Surface Antigen December 12, 2008 3:35pm Negative - Hepatitis C Antibody December 12, 2008 3:35pm Positive - Hepatitis C Genotype April 26, 2014 8:21am 1a - Reference Range: Undetected ADDITIONAL INFORMATION This test was performed using the Jenkins RealTime HCV Genotype II assay ([employer] [place], [place]). Test Performed by: [place] [address] Barrel Washer Machine: Wyatt Christie M.D. Hep[place] [address] Gourmet Coffee Attendant Leatha Burton MD Hepatitis C Viral RNA December 27, 2012 11:42am [id number] IU/mL - HEP C GENOTYPE Z0933 Influenza [...] Has specimen been collected/obtained? Y Urine Specific [place] March 22, 2014 11:43pm 1.015 - Has [...] 26, 2014 10:29am LAB TEST FORM REQUEST [id number] - Hepatitis C RNA (PCR) Method March [...] HCV infection. Hepatitis C RNA performed at [facility] Reference Lab, [place] [address] Gourmet Coffee Attendant Nikki Burton MD Icterus Index May 13, 2014 6:36pm < 2 0-7 LE-Ryr-O-Type Natriuretic Peptide February 19, 2012 1:05am 69 [...] 2008 9:54pm Name: JAMIE NAGY Unit #: [id number] : 1965 Sex: M Loc / Sv: ED DOS: 06/22/14 Signed Report #: [id number] DIAGNOSTIC IMAGING REPORT TYPE OF EXAM: KNEE [...] completed 05/13/14 EMERGENCY DEPT VISIT completed 05/13/14 [id number] ITEM OR SERVICE completed 05/13/14 CHEST X-RAY 1 VIEW FRONTAL completed 05/15/14 THER/PROPH/DIAG INJ IV PUSH completed 05/15/14 TX/PRO/DX INJ NEW DRUG ADDON completed 05/15/14 TX/PRO/DX INJ NEW DRUG ADDON completed 05/15/14 EMERGENCY DEPT VISIT completed 05/15/14 [id number]"INJECTION, KETOROLAC TROMETHAMINE, PER 15 MG" completed 05/15/14 [id number]"INJECTION, ONDANSETRON HYDROCHLORIDE, PER 1 MG" completed 05/15/14 [id number]"INJECTION, METHYLPREDNISOLONE SODIUM SUCCINATE, UP TO completed X-RAY EXAM OF KNEE 3 completed 06/22/14 EMERGENCY DEPT VISIT completed 06/22/14 Encounters Encounter Location Date/Time Departed Emergency Room [facility] 08/01/14 6:06am Departed Emergency Room [facility] 06/22/14 4:33am Departed Emergency Room [facility] 05/15/14 1:24am Departed Emergency Room [facility] 05/13/14 5:34pm Recent Diagnosis
--- OUTSIDE RECORDS SUMMARY | 2016-09-29 16:51 | XMS REPORT | Continuity of Care Document ---
Author Author [facility] Organization [facility] Address Unknown Phone Unavailable Care Team Providers Care Director Data Architecture Name Role Phone Emma DENG MD Primary Care Physician [phone] Insurance Providers Payer Name Policy Number Subscriber Name Relationship Medicare [id number] Jamie Nagy 20 Self [facility] [employer] Plan [id number] Jamie Nagy 20 Self Advance Directives Directive [...] F (96.8 - 99.1) Temperature (Calculated Celsius) 36.30670 degrees C (36.0 - 37.3) Pulse Rate [...] - Hepatitis A Antibody Total performed at [facility], [address] [place] [address] End User Support Specialist Nikki Burton MD Hepatitis A IgM Antibody [...] --Unvaccinated: <5.0 Vaccinated: >=12.0 Test Performed by: [place] [address] Pasteurizing Machine Operator: Kaiden Zhang III, M.D. Hepatitis B Surface Ab, [place] [address] End User Support Specialist Leatha Burton MD Hepatitis B Surface Antigen December 12, 2008 3:35pm Negative - Hepatitis C Antibody December 12, 2008 3:35pm Positive - Hepatitis C Genotype April 26, 2014 8:21am 1a - Reference Range: Undetected ADDITIONAL INFORMATION This test was performed using the Jenkins RealTime HCV Genotype II assay ([employer] [place], [place]). Test Performed by: [place] [address] Pasteurizing Machine Operator: Wyatt Christie M.D. Hepatitis C Genotype performed at [address] [address] End User Support Specialist Leatha Burton MD Hepatitis C Viral RNA December 27, 2012 11:42am [id number] IU/mL - HEP C GENOTYPE Z0933 Influenza [...] Has specimen been collected/obtained? Y Urine Specific [place] March 22, 2014 11:43pm 1.015 - Has [...] 26, 2014 10:29am LAB TEST FORM REQUEST [id number] - Hepatitis C RNA (PCR) Method March [...] infection. Hepatitis C RNA performed at [facility] Reference Lab, [address] [place] [address] End User Support Specialist Nikki Burton MD Icterus Index May 13, 2014 6:36pm < 2 0-7 ZU-Wud-B-Type Natriuretic Peptide February 19, 2012 1:05am 69 [...] 2008 11:15am Name: JAMIE NAGY Unit #: [id number] : 1965 Sex: M Loc / Svc: ED DOS: 05/15/14 Signed Report #: [id number] DIAGNOSTIC IMAGING REPORT TYPE OF EXAM: CHEST [...] completed 04/24/14 EMERGENCY DEPT VISIT completed 04/24/14 163900"INJECTION, HYDROMORPHONE, UP TO 4 MG" completed 04/24/14 [id number]"INJECTION, ORPHENADRINE CITRATE, UP TO 60 MG" completed [...] completed 05/13/14 EMERGENCY DEPT VISIT completed 05/13/14 [id number] ITEM OR SERVICE completed 05/13/14 CHEST X-RAY 1 VIEW FRONTAL completed 05/15/14 THER/PROPH/DIAG INJ IV PUSH completed 05/15/14 TX/PRO/DX INJ NEW DRUG ADDON completed 05/15/14 TX/PRO/DX INJ NEW DRUG ADDON completed 05/15/14 EMERGENCY DEPT VISIT completed 05/15/14 [id number]"INJECTION, KETOROLAC TROMETHAMINE, PER 15 MG" completed 05/15/14 [id number]"INJECTION, ONDANSETRON HYDROCHLORIDE, PER 1 MG" completed 05/15/14 [id number]"INJECTION, METHYLPREDNISOLONE SODIUM SUCCINATE, UP TO completed Encounters Encounter Location Date/Time Departed Emergency Room [facility] 06/22/14 4:33am Departed Emergency Room [facility] 05/15/14 1:24am Departed Emergency Room [facility] 05/13/14 5:34pm Registered Clinic [facility] 04/26/14 8:10am Departed Emergency Room [facility] 04/24/14 3:03am Registered Clinic [facility] 04/07/14 9:36am Recent Diagnosis
--- OUTSIDE RECORDS SUMMARY | 2016-09-29 16:52 | XMS REPORT | Continuity of Care Document ---
Author Author [facility] Organization [facility] Address Unknown Phone Unavailable Care Team Providers Care Sales Enablement Analyst Name Role Phone ADAL LOBO MD Primary Care Physician [phone] Insurance Providers Payer Name Policy Number Subscriber Name Relationship Medicare [id number] Jamie Nagy 20 Self [employer] Plan [id number] Jamie Nagy 20 Self Problems Medical Problems [...] F (96.8 - 99.1) Temperature (Calculated Celsius) 37.75423 degrees C (36.0 - 37.3) Pulse Rate [...] - Hepatitis A Antibody Total performed at [facility], [address] [place] [address] Product Assembler Nikki Burton MD Hepatitis A IgM Antibody [...] --Unvaccinated: <5.0 Vaccinated: >=12.0 Test Performed by: [place] [address] Shipping And Receiving Clerk: Kaiden Zhang III, M.D. Hepatitis B Surface Ab, [place] [address] Product Assembler Leatha Burton MD Hepatitis B Surface Antigen December 12, 2008 3:35pm Negative - Hepatitis C Antibody December 12, 2008 3:35pm Positive - Hepatitis C Genotype April 26, 2014 8:21am 1a - Reference Range: Undetected ADDITIONAL INFORMATION This test was performed using the Jenkins RealTime HCV Genotype II assay ([employer] [place], [place]). Test Performed by: [place] [address] Shipping And Receiving Clerk: Wyatt Christie M.D. Hepatitis C Genotype performed at [address], [place] [address] Product Assembler Leatha Burton MD Hepatitis C Viral RNA December 27, 2012 11:42am [id number] IU/mL - HEP C GENOTYPE Z0933 Influenza [...] 26, 2014 10:29am LAB TEST FORM REQUEST [id number] - Hepatitis C RNA (PCR) Method March [...] HCV infection. Hepatitis C RNA performed at [facility] Reference Lab, [address] [place] [address] Product Assembler Nikki Burton MD Icterus Index May 13, 2014 6:36pm < 2 0-7 RZ-Rui-Q-Type Natriuretic Peptide February 19, 2012 1:05am 69 [...] 2008 11:15am Name: JAMIE NAGY Unit #: [id number] : 1965 Sex: M Loc / [facility] DOS: 04/07/14 Signed Report #: [id number] DIAGNOSTIC IMAGING REPORT TYPE OF EXAM: US [...] completed 04/24/14 EMERGENCY DEPT VISIT completed 04/24/14 [id number]"INJECTION, HYDROMORPHONE, UP TO 4 MG" completed 04/24/14 [id number]"INJECTION, ORPHENADRINE CITRATE, UP TO 60 MG" completed 04/24/14 GENOTYPE DNA/RNA HEP C completed 04/26/14 Encounters Encounter Location Date/Time Departed Emergency Room [facility] 05/13/14 5:34pm [facility] 04/26/14 8:10am Departed Emergency Room [facility] 04/24/14 3:03am Registered [facility] 04/07/14 9:36am Departed Emergency Room [facility] 03/22/14 11:17pm Recent Diagnosis
--- OUTSIDE RECORDS SUMMARY | 2016-09-29 16:53 | XMS REPORT | Continuity of Care Document ---
Author Author [facility] Organization [facility] Address Unknown Phone Unavailable Care Team Providers Care Miter Operator Name Role Phone ADAL LOBO MD Primary Care Physician [phone] Insurance Providers Payer Name Policy Number Subscriber Name Relationship Medicare [id number] Jamie Nagy 20 Self [employer] Plan [id number] Jamie Nagy 20 Self Problems Medical Problems [...] F (96.8 - 99.1) Temperature (Calculated Celsius) 36.75624 degrees C (36.0 - 37.3) Pulse Rate [...] - Hepatitis A Antibody Total performed at [facility], [address] [place] [address] Campus Recruiter Nikki Burton MD Hepatitis A IgM Antibody [...] --Unvaccinated: <5.0 Vaccinated: >=12.0 Test Performed by: [place] [address] Hoop Maker Machine: Kaiden Zhang III, M.D. Hepatitis B Surface Ab, [place] [address] Campus Recruiter Leatha Burton MD Hepatitis B Surface Antigen December 12, 2008 3:35pm Negative - Hepatitis C Antibody December 12, 2008 3:35pm Positive - Hepatitis C Genotype December 27, 2012 11:42am 1a - Reference Range: Undetected.Testing was done using the Jenkins HCV Genotype II Assay. For research use only. Test performed by: [place], [place] Hepatitis C Viral RNA December 27, 2012 11:42am [id number] IU/mL - HEP C GENOTYPE Z0933 Influenza [...] Has specimen been collected/obtained? Y Urine Specific [place] March 22, 2014 11:43pm 1.015 - Has [...] Report January 28, 2014 5:18pm REFERENCE LAB [id number] - Hepatitis C RNA (PCR) Method March [...] HCV infection. Hepatitis C RNA performed at [facility] Reference Lab, [address] [place] [address] Campus Recruiter Nikki Burton MD Icterus Index March 22, 2014 11:43pm < 2 0-7 HY-Hrd-D-Type Natriuretic Peptide February 19, 2012 1:05am 69 [...] 2008 11:15am Name: JAMIE NAGY Unit #: [id number] : 1965 Sex: M Loc / Svc: ED DOS: 01/28/14 Signed Report #: [id number] DIAGNOSTIC IMAGING REPORT TYPE OF EXAM: SHOULDER [...] Encounters Encounter Location Date/Time Departed Emergency Room [facility] 03/22/14 11:17pm Departed Emergency Room [facility] 01/28/14 1:49pm Departed Emergency Room [facility] 01/13/14 10:20pm Recent Diagnosis
== END 2016-09-29 14:44 | disposition home or self-care (01) ==
LOC: ED 14:14
DX: B02.9 Zoster without complications (principal)